=== PATIENT | male | born 1950 | race Caucasian/White ===

== ENCOUNTER 2024-01-10 09:49 | Inpatient (IN) | payer OTHER, SELFPAY ==
[2024-01-10] VITALS (18 sets, daily range): BP systolic 152–215; BP diastolic 72–107; PULSE 99; O2SAT 95; BMI 23.1; BMI 22.3
--- NOTE | 2024-01-10 03:42 | EDRN ---
Pt does not know his medication or doses of medication. No family members here to clarify.
--- NOTE | 2024-01-10 03:47 | ED.GENMED ---
History of Present Illness
<MONAE Duong - Last Filed: 01/18/24 03:37>
General
Chief Complaint: Weakness
Source: patient
Time Seen by Provider: 01/10/24 03:41
Travel History
Have you had any contact with someone who has COVID-19?: No
Do you have any symptoms of coronavirus? Fever > 100 degrees, chills, cough, shortness of breath, sore throat, loss of taste or smell, muscle aches, or headache?: No
History of Present Illness
History of Present Illness:
Pt is a 74 y/o male with a PMH of diabetes, CHF, HTN, hyperlipidemia, sarcoidosis, and heart transplant (01/28) presenting with generalized weakness x 2 days. Pt states the weakness gets worse throughout the day and is occasionally associated with
arthritic pain. He reports his eyes feeling heavy as the day progresses. Pt states he also has numbness and tingling in his feet bilaterally 'for a long time'. He reports his daily sugars are 150 in the a.m. prior to eating. Pt states he has fallen
several times in the last 2 days. He denies hitting his head, stating he is usually able to catch himself as he falls. He reports he lives at home and his son checks on him frequently. He also reports occasional dizziness and SOB, stating he sleeps
with 2-3 pillows at night to prevent SOB. Pt reports weight loss of 40 lbs in the last month and feeling hot throughout the day. Pt denies palpitations, night sweats, chest pain, swelling, changes in vision, new onset headaches, change in urinary or
bowel habits.
Past History
<MONAE Duong - Last Filed: 01/18/24 03:37>
Past History
ED Past Medical History: HTN, Hypercholesterolemia and Other (Cardiac transplant)
ED Past Surgical History: Other (Cardiac transplant)
Social History
Tobacco: Non-smoker
Alcohol: None
Drug: None
Review of Systems
<MONAE Duong - Last Filed: 01/18/24 03:37>
Review of Systems
Constitutional: Reports fever, weight loss (Reports 40 lb loss in past month), fatigue and other (reports feeling hot and sweaty throughout the day)
EENT: Reports no symptoms
Respiratory: Reports trouble breathing
Cardiac: Reports no symptoms
ABD/GI: Reports no symptoms
: Reports urgency
Musculoskeletal: Reports joint pain and muscle pain
Skin: Reports no symptoms
Neurological: Reports dizzy, weakness and numbness
Hematologic/Lymphatic: Reports no symptoms
Psychiatric: Reports no symptoms
Phy Exam
<MONAE Duong - Last Filed: 01/18/24 03:37>
General Physical Exam
General Presentation: well appearing
General age: appears stated age
General Skin: warm and dry
General Habitus: normal and elderly
General Mental: confused (Pt states he stopped taking his lisinopril 'awhile ago' but later states he still takes his lisinopril daily.)
General Hydration: appears well hydrated
Eye Exam
Eye Exam: EOMI
Cardiovascular Exam
Cardiovascular Exam: regular rate/rhythm, no edema, no gallop, no murmur and normal peripheral pulses
Pulmonary Exam
Pulmonary Exam: lungs clear, no respiratory distress, no rales, chest non tender, no crackles, no rhonchi, no wheezing and no cough
Gastrointestinal Exam
Gastrointestinal Exam: normal bowel sounds, non tender and soft
Sensory
Sensory Exam: dull and sharp
Cerebellar
Cerebellar Function: normal finger to nose (Able to touch nose but not able to follow command to outstretch arm before.)
Skin Exam
Skin Exam: normal color, warm/dry and no rash
Psychiatric Exam
Psychiatric Exam: normal mood/affect
Course
<Corazon Stern [facility] - Last Filed: 01/18/24 03:37>
Orders/Labs/Results
Orders:
Orders
01/10/24 03:45
Electrocardiogram (*1) Urgent
Reason for Study: Other
Other Reason for Exam: Possible Sepsis
Cardiac Monitoring- Treatment ONCE
EKG- Treatment ONCE
O2 Therapy [RESP] Urgent
Titrate/Wean O2 to maintain O2 sat greater than (%): 93
Special Instructions: TO MAINTAIN CONTINUOUS O2 SATS > OR = 93%
Pulse Ox/cont/shift [RESP] Urgent
Quantity: 1
Special Instructions: CONTINUOUS
01/10/24 03:47
Complete Blood Count/With Diff Urgent
Comprehensive Metabolic Panel Urgent
01/10/24 04:21
COVID-19 Antigen Urgent
Source: Nasal Swab
Urinalysis Reflex To Culture Urgent
Date Specimen was Collected: 01/10/24
Time Specimen was Collected: 04:19
Urine Microscopic Reflex Cult Urgent
Influenza A+B Rapid Molecular Urgent
MALACHI Source: Nasal Swab
Specimen Description:
01/10/24 Breakfast
Cholesterol Lowering
At Your Request: Full Participation
Cholesterol Lowering: Sodium, 2 Gram
01/10/24 07:30
0.9% Sodium Chloride 1000 ml [Nss] 1,000 ml IV 250 mls/hr
01/10/24 09:27
Admit/Transfer Patient As Directed
Co-Sign Provider:
Level of Care: Inpatient admission
Assign to:: Medical/Surgical
Physician / Group: dez/stephanie
Diagnosis: weight loss, falls, jacy
Reason for Hospitalization: weight loss, falls, jacy
Expected length of stay greater than two midnights?: Yes
ELOS- Estimated Length of Stay in days: 3
I certify the patient meets the requirements for IP care: Yes
01/10/24 09:34
Code Status As Directed
Resuscitation Status: Full Code
01/10/24 11:36
Insulin Aspart High Resistance [Novolog Flexpen-High Resistance] See Protocol SC AC
Oxycodone/Acetaminophen [Percocet 5/325] 1 tablet PO BIDPRN PRN
01/10/24 11:36
Echo 2D MMode Color/Doppler Routine
Reason for Study: ef
CT Chest/abd/pel Wo Iv Cont Routine
Comment:
Reason For Exam: jacy but 40 lb weight loss - eval for any masses
Activity As Directed
Activity Level: As Tolerated
Vital Signs As Directed
Frequency: Per unit guidelines
Ot Eval And Treat Routine
Pt Eval And Treat Routine
Activity Level: As Tolerated
DX Deep Vein Thrombosis Video Routine
01/10/24 16:00
Heparin 5,000 units SC Q8
01/10/24 20:00
Magnesium l-Lactate [Mag-Tab Sr] 84 mg PO BID
Tacrolimus [Prograf] 1 mg PO BID
01/10/24 22:00
Atorvastatin [Lipitor] 40 mg PO HS
01/11/24 05:39
Complete Blood Count/No Diff IN AM
Comprehensive Metabolic Panel IN AM
Magnesium IN AM
01/11/24 08:00
Aspirin Low Dose EC [Aspir Low (Enteric Coated)] 81 mg PO DAILY
Clopidogrel Bisulfate [Plavix] 75 mg PO DAILY
Multivitamin [Theragran] 1 tablet PO DAILY
Pantoprazole [Protonix] 40 mg PO DAILY
Prednisone [Deltasone] 5 mg PO DAILY
Tamsulosin [Flomax] 0.4 mg PO DAILY
Abnormal Lab Results
01/10/24 01/10/24
03:47 04:21
WBC 13.4 H 10^3/uL
(4.8-10.8)
Abs Immat Gran (auto) 0.1 H 10^3/uL
(0-0.05)
Absolute Neuts (auto) 9.9 H 10^3/uL
(1.4-6.5)
Absolute Monos (auto) 2.0 H 10^3/uL
(0.1-0.6)
Lymphocytes % 10.7 L %
(20.5-51.1)
Monocytes % 14.6 H %
(1.7-9.3)
Sodium 132 L mmol/L
(135-145)
Potassium 3.4 L mmol/L
(3.5-5.1)
BUN 38 H mg/dl
(9-20)
Creatinine 1.5 H mg/dL
(0.7-1.3)
Glucose 178 H mg/dl
(70-99)
Total Bilirubin 1.6 H mg/dl
(0.2-1.3)
Urine Ketones 1+ A
(Negative)
Ur Occult Blood Reflex 1+ A
(Negative)
Urine RBC 3-6 A /HPF
(0-2)
Urine Bacteria (Reflex) Few A
(Negative)
Urine Glucose Trace A
(Negative)
Urine Albumin (Reflex) 2+ A
(Neg - Trace)
01/10/24 03:47
01/10/24 03:47
Vital Signs
Initial and Last Documented VS:
Initial Vital Signs
Temp Pulse Resp BP Pulse Ox
100.9 F H 93 20 215/107 97
01/10/24 03:22 01/10/24 03:22 01/10/24 03:22 01/10/24 03:22 01/10/24 03:22
Last Documented Vital Signs
Temp Pulse Resp BP Pulse Ox
97.4 F 65 18 115/67 97
01/17/24 07:00 01/17/24 08:13 01/17/24 07:00 01/17/24 08:13 01/17/24 08:19
<Job Desai, DO - Last Filed: 01/10/24 07:24>
Orders/Labs/Results
Orders:
Orders
01/10/24 03:45
Electrocardiogram (*1) Urgent
Reason for Study: Other
Other Reason for Exam: Possible Sepsis
Cardiac Monitoring- Treatment ONCE
EKG- Treatment ONCE
O2 Therapy [RESP] Urgent
Titrate/Wean O2 to maintain O2 sat greater than (%): 93
Special Instructions: TO MAINTAIN CONTINUOUS O2 SATS > OR = 93%
Pulse Ox/cont/shift [RESP] Urgent
Quantity: 1
Special Instructions: CONTINUOUS
01/10/24 03:47
Complete Blood Count/With Diff Urgent
Comprehensive Metabolic Panel Urgent
01/10/24 04:21
COVID-19 Antigen Urgent
Source: Nasal Swab
Urinalysis Reflex To Culture Urgent
Date Specimen was Collected: 01/10/24
Time Specimen was Collected: 04:19
Urine Microscopic Reflex Cult Urgent
Influenza A+B Rapid Molecular Urgent
MALACHI Source: Nasal Swab
Specimen Description:
01/10/24 Breakfast
Cholesterol Lowering
At Your Request: Full Participation
Cholesterol Lowering: Sodium, 2 Gram
01/10/24 07:30
0.9% Sodium Chloride 1000 ml [Nss] 1,000 ml IV 250 mls/hr
01/10/24 09:27
Admit/Transfer Patient As Directed
Co-Sign Provider:
Level of Care: Inpatient admission
Assign to:: Medical/Surgical
Physician / Group: dez/stephanie
Diagnosis: weight loss, falls, jacy
Reason for Hospitalization: weight loss, falls, jacy
Expected length of stay greater than two midnights?: Yes
ELOS- Estimated Length of Stay in days: 3
I certify the patient meets the requirements for IP care: Yes
01/10/24 09:34
Code Status As Directed
Resuscitation Status: Full Code
01/10/24 11:36
Insulin Aspart High Resistance [Novolog Flexpen-High Resistance] See Protocol SC AC
Oxycodone/Acetaminophen [Percocet 5/325] 1 tablet PO BIDPRN PRN
01/10/24 11:36
Echo 2D MMode Color/Doppler Routine
Reason for Study: ef
CT Chest/abd/pel Wo Iv Cont Routine
Comment:
Reason For Exam: jacy but 40 lb weight loss - eval for any masses
Activity As Directed
Activity Level: As Tolerated
Vital Signs As Directed
Frequency: Per unit guidelines
Ot Eval And Treat Routine
Pt Eval And Treat Routine
Activity Level: As Tolerated
DX Deep Vein Thrombosis Video Routine
01/10/24 16:00
Heparin 5,000 units SC Q8
01/10/24 20:00
Magnesium l-Lactate [Mag-Tab Sr] 84 mg PO BID
Tacrolimus [Prograf] 1 mg PO BID
01/10/24 22:00
Atorvastatin [Lipitor] 40 mg PO HS
01/11/24 05:39
Complete Blood Count/No Diff IN AM
Comprehensive Metabolic Panel IN AM
Magnesium IN AM
01/11/24 08:00
Aspirin Low Dose EC [Aspir Low (Enteric Coated)] 81 mg PO DAILY
Clopidogrel Bisulfate [Plavix] 75 mg PO DAILY
Multivitamin [Theragran] 1 tablet PO DAILY
Pantoprazole [Protonix] 40 mg PO DAILY
Prednisone [Deltasone] 5 mg PO DAILY
Tamsulosin [Flomax] 0.4 mg PO DAILY
Abnormal Lab Results
01/10/24 01/10/24
03:47 04:21
WBC 13.4 H 10^3/uL
(4.8-10.8)
Abs Immat Gran (auto) 0.1 H 10^3/uL
(0-0.05)
Absolute Neuts (auto) 9.9 H 10^3/uL
(1.4-6.5)
Absolute Monos (auto) 2.0 H 10^3/uL
(0.1-0.6)
Lymphocytes % 10.7 L %
(20.5-51.1)
Monocytes % 14.6 H %
(1.7-9.3)
Sodium 132 L mmol/L
(135-145)
Potassium 3.4 L mmol/L
(3.5-5.1)
BUN 38 H mg/dl
(9-20)
Creatinine 1.5 H mg/dL
(0.7-1.3)
Glucose 178 H mg/dl
(70-99)
Total Bilirubin 1.6 H mg/dl
(0.2-1.3)
Urine Ketones 1+ A
(Negative)
Ur Occult Blood Reflex 1+ A
(Negative)
Urine RBC 3-6 A /HPF
(0-2)
Urine Bacteria (Reflex) Few A
(Negative)
Urine Glucose Trace A
(Negative)
Urine Albumin (Reflex) 2+ A
(Neg - Trace)
01/10/24 03:47
01/10/24 03:47
Vital Signs
Initial and Last Documented VS:
Initial Vital Signs
Temp Pulse Resp BP Pulse Ox
100.9 F H 93 20 215/107 97
01/10/24 03:22 01/10/24 03:22 01/10/24 03:22 01/10/24 03:22 01/10/24 03:22
Last Documented Vital Signs
Temp Pulse Resp BP Pulse Ox
97.4 F 65 18 115/67 97
01/17/24 07:00 01/17/24 08:13 01/17/24 07:00 01/17/24 08:13 01/17/24 08:19
<MONAE Duong - Last Filed: 01/18/24 03:37>
MDM/Problems Addressed
Differential Diagnosis Includes:
CHF exacerbation
Arthritis
Myasthenia gravis
Diabetes complication
HTN urgency
MDM/Problems Addressed:
Generalized weakness
Chronic conditions affecting care: DM, HTN, Cardiomyopathy and Cancer
<MONAE Duong - Last Filed: 01/18/24 03:37>
*Pulse Oximetry
Patient hypoxic: no
*EKG
Interpreted by ED Provider?: Yes
Comparison EKG: no changes
Rate: normal
Rhythm: sinus
Fielding: normal axis
Interval: long QT
QRS Pattern: normal QRS
Ischemia: non-specific ST changes
*Small Craft Operator Interpretation
Rate: normal
Interpretation: normal
Rhythm: sinus
*Critical Care Note
Total Time (30-74mins, 75-104mins- exclusive of procedures): Not Applicable
ED Attending Note
<MONAE Duong - Last Filed: 01/18/24 03:37>
-
Portions of this chart may have been created with voice recognition software.� Occasional wrong word or��sound alike� substitutions may have occurred due to the inherent limitations of voice recognition software.
<Job Desai DO - Last Filed: 01/10/24 07:24>
ED Attending Note
Patient seen and examined by attending physician: Yes
I performed the substantive portion of visit, reviewed & personally made and approve the management plan that is documented in note by myself or ANABELL.: Yes
ED Attending Note:
Pleasant 73-year-old male presents with generalized weakness for the last 2 days. Patient states that he has had frequent falls over this time. Patient reports that he wakes up feeling 'energized'. And the weakness progressively worsened
throughout each day. Patient lives alone and is concerned about falling. His son does check in on him throughout the day but does not live in the household. Patient does have a history of heart transplants. He had his first transplant in 2000
and a second transplant in 2001. Patient states that he has been losing weight over the last month stating that he lost 40 pounds during this time. Patient denies specific abdominal or chest wall pain. Patient does have arthritis and occasionally
this pain acts up with his arthritis. Patient was seen in conjunction with the PA student. I have reviewed and agree with the history and treatment plan presented. On my independent physical exam, patient is awake, alert, and oriented x3.
Moderate acute distress. Heart is regular rate and rhythm and sometimes tachycardic. Lungs are clear to auscultation bilaterally. Abdomen is soft nontender nondistended no rigidity or guarding present. Negative Beyer sign. Negative McBurney's
point tenderness. Moves all 4 extremities.
Discharge Plan
Departure
Patient Disposition: Admit
Date of Disposition: 01/10/24
Time of Disposition: 07:18
Admit to: Med/Surg
Admit to doctor: hospitalist
Presentation/result/management discussed w/ accepting MD/DO: Hospitalist
Condition: Fair
Discharge Problem:
fever, r/o sepsis, Generalized muscle weakness, Unintentional weight loss, Acute kidney injury
Interventions
Interventions:
*Risk Screen - Suicide Last Done: 01/10/24 03:22
*General Assessment Last Done: 01/10/24 03:22
*Neglect/Abuse Screening Last Done: 01/10/24 03:22
ED- Fall Risk Assessment Last Done: 01/10/24 03:22
*ED COVID-19 Vaccine History Last Done: 01/10/24 03:22
*Nursing Disposition Last Done: 01/10/24 14:16
ED- Cardiac Assessment Last Done: 01/10/24 03:34
ED- Neurological Assessment Last Done: 01/10/24 03:34
ED- Pulmonary Assessment Last Done: 01/10/24 03:34
Discharge Date and Time
Discharge Date/Time: 01/10/24 15:02
[2024-01-10 04:03] LABS: % Basophils 0.7 % (0-2); % Immature Granulocytes 0.4 % (0-0.5); % Lymphocytes 10.7 % (20.5-51.1); % Monocytes 14.6 % (1.7-9.3); % Neutrophils 73.6 % (42.2-75.2); Absolute Basophils 0.1 10^3/uL (0-0.2); Absolute Immature Granulocytes 0.1 10^3/uL (0-0.05); Absolute Lymphocytes 1.4 10^3/uL (1.2-3.4); Absolute Neutrophils 9.9 10^3/uL (1.4-6.5); Hematocrit 42.9 % (39.0-52.0); Hemoglobin 15.2 g/dL (13.0-18.0); Mean Corp Hgb Conc. 35.4 g/dL (33.0-37.0); Mean Corpuscular Hgb 30.5 pg (27.0-31.0); Mean Platelet Volume 10.1 fL (7.4-10.4); Nucleated Red Blood Cells % 0 % (-); Platelet Count 251 10^3/uL (130-400); Red Blood Cell Count 4.99 10^6/uL (4.70-6.10); Red Cell Dist. Width 13.6 % (11.5-14.5); White Blood Cell Count 13.4 10^3/uL (4.8-10.8)
[2024-01-10 04:17] LABS: ALT (SGPT) 18 U/L (0-50); AST (SGOT) 29 U/L (17-59); Alkaline Phosphatase 97 U/L (38-126); Blood Urea Nitrogen 38 mg/dl (9-20); Carbon Dioxide 29 mmol/L (22-30); Chloride 98 mmol/L (98-107); Estimated Creatinine Clearance 42 ml/min; Glucose 178 mg/dl (70-99); Potassium 3.4 mmol/L (3.5-5.1); Sodium 132 mmol/L (135-145); Total Bilirubin 1.6 mg/dl (0.2-1.3); Total Protein 6.6 g/dl (6.3-8.2); eGFR 48.85
[2024-01-10 05:03] LABS: Urine Albumin 2+ (Neg - Trace); Urine Bilirubin Negative (Negative); Urine Character Clear (Clear); Urine Color Yellow; Urine Glucose Trace (Negative); Urine Ketone 1+ (Negative); Urine Leukocyte Negative (Negative); Urine Nitrite Negative (Negative); Urine Occult Blood 1+ (Negative); Urine Specific Gravity 1.015 (<1.030); Urine Urobilinogen 1+ (Neg - 1+)
[2024-01-10 05:24] LABS: COVID-19 Antigen Negative (Negative)
[2024-01-10 06:16] LABS: Urine Amorphous Seen; Urine Bacteria Few (Negative); Urine Squamous Cell 21-25 /LPF (Few)
[2024-01-10] MEDS: NSS 1000 IV ×2 (07:32→11:43)
[2024-01-10] MEDS: NORVASC 10 MG PO (12:02)
[2024-01-10] MEDS: APRESOLINE 10 MG IV (12:03)
[2024-01-10 12:52] LABS: Glucose - Point of Care 145 mg/dl (70-99)
[2024-01-10] MEDS: NOVOLOG FLEXPEN-HIGH RESISTANCE SC ×2 (13:17→17:35)
--- NOTE | 2024-01-10 13:55 | PTOTSP ---
Physician: Please order OT for Evaluation and Treatment of ADLs for safe return to prior functional status.
--- NOTE | 2024-01-10 14:56 | HPS.HSE ---
Family Physician
-
Family Physician: PHYSICIAN PRIVATE
Chief Complaint
-
weakness, worsening lethargy
History of Present Illness
74 y/o male with a PMH of diabetes, CHF, HTN, hyperlipidemia, sarcoidosis, and heart transplant (2019) presenting with generalized weakness x 2 days. Lethargy has been progressing, especially later in prema day. Further, eyes feel heavy later in the
day; Moreso, complains of numbness and tingling in the feet b/l that has been chronic. Acknowledges feeling weaker and falling many times over the last 2 weeks. 40lb weight loss in 1 month, unintentional. Otherwise denies fever, chills, night
sweats.
Medical History
Past Medical History
Past Medical History: Reports HTN, Hypercholesterolemia and IDDM
Additional Past Medical History:
HTN, Hypercholesterolemia and Other (Cardiac transplant)
Past Surgical History: Reports Cardiac (Heart Transplant 2019)
Social History
Tobacco: Non-smoker
Alcohol: None
Drug: None
Family History
Family History: Not pertinent
Allergies / Home Medications
Allergies reflects when Allergies were last updated in [employer].
Home Medications with original date entered in [employer]
Allergy/Medication List:
Allergies
Allergy/AdvReac Type Severity Reaction Status Date / Time
doxycycline Allergy NAUSEA/VOMI Verified 01/10/24 03:22
TING
Home Medications
atorvastatin 40 mg tablet 40 mg PO HS High cholesterol 01/04/10
tacrolimus 1 mg capsule, immediate-release 1 mg PO BID Transplant 01/04/10
aspirin 81 mg tablet,delayed release 81 mg PO DAILY Heart disease/condition 03/03/22
magnesium oxide 400 mg PO BID Supplement 03/03/22
prednisone 5 mg tablet 5 mg PO DAILY inflammation 03/03/22
tamsulosin 0.4 mg capsule 0.4 mg PO DAILY Urinary issue 03/03/22
clopidogrel 75 mg tablet 75 mg PO DAILY 01/10/24
insulin aspart U-100 100 unit/mL (3 mL) subcutaneous pen (Novolog FlexPen U-100 Insulin aspart) 0 sliding scale dose SC DIRECTED 01/10/24
lansoprazole 30 mg capsule,delayed release 30 mg PO DAILY 01/10/24
lisinopril 20 mg tablet 20 mg PO DAILY 01/10/24
uhuuwlxiqryv-eowugosu-mjwece tablet (Multivitamin 50 Plus tablet) 1 tab PO DAILY 01/10/24
oxycodone-acetaminophen 5 mg-325 mg tablet 1 tab PO BIDPRN PRN severe pain 01/10/24
Review of Systems
-
History Source: Patient
A 12 point ROS was completed and negative except as noted: Yes
Physical Exam
Vital Signs
Vital Signs
Temp Pulse Resp BP Pulse Ox
99.2 F 100 22 152/77 97
01/10/24 06:51 01/10/24 14:15 01/10/24 14:15 01/10/24 14:00 01/10/24 14:16
Physical Exam
General: No Apparent Distress, Comfortable and Appears Chronically Ill
HEENT: NormoCephalic
Respiratory: Clear
Cardiac: S1/S2 and Regular Rhythm
GI: Soft and Non Tender
Musculoskeletal: No Clubbing
Skin: Warm
Neuro: Awake, Alert, Oriented and AO x 3
Hematologic/Lymphatic: No Lymphadenopathy
Psych: Calm
Laboratory Results
-
01/10/24 03:47
01/10/24 03:47
Laboratory Results
Total Bilirubin 1.6 mg/dl (0.2-1.3) H 01/10/24 03:47
AST 29 U/L (17-59) 01/10/24 03:47
ALT 18 U/L (0-50) 01/10/24 03:47
Alkaline Phosphatase 97 U/L (38-126) 01/10/24 03:47
Data Reviewed
-
Lab Data: Labs Reviewed by me
Impression/Plan
-
IMPRESSION:
74 y/o male with a PMH of diabetes, CHF, HTN, hyperlipidemia, sarcoidosis, and heart transplant (2019) presenting with generalized weakness x 2 days.
PLAN:
#Weakness
-states 40lb weight loss although no evidence of much change since 2 eyars ago
-Concern for malignancy
� Unclear source,
� Follow-up CT chest, abdomen, pelvis without IV contrast due to CATIE
� PT/OT
-FOBT
#Leukocytosis
� Most likely secondary to acute stress
� Continue to monitor for evidence of infection, white count, fever curve
#Hypokalemia
Monitor replete
#CATEI
� Possibly secondary to decreased p.o. intake, dehydration versus sepsis
� Continue IV fluids
� Monitor serum creatinine
#Hyponatremia
� Most likely secondary to hypovolemia
� Trend with resuscitation
#DM
-cont AISS
#Hx heart transplant
cont home immunosuppressants
#HTN
hold lisinopril due to catie
#HLD
cont home atorvastatin
#sarcoidosis
cont home prednisone
dvt ppx HSQ
DNR as per patient
[2024-01-10] MEDS: LR 1000 IV (15:43)
[2024-01-10] MEDS: HEPARIN 5000 UNITS SC ×2 (15:44→23:18)
[2024-01-10] MEDS: KCL 270 MEQ IV (15:44)
[2024-01-10] MEDS: NSS IV (15:44)
--- NOTE | 2024-01-10 16:06 | PTCARENOTE ---
pt presents from ED via stretcher. pt is AAO*3, Vss, room air. c/o R shoulder pain 06/08. aware. IVFs started in ED. pt is oriented to the room. call summers within the reach. will continue plan of care.
[2024-01-10 17:35] LABS: Glucose - Point of Care 142 mg/dl (70-99)
[2024-01-10] MEDS: PERCOCET 5/325 1 TABLET PO (17:37)
[2024-01-10] MEDS: PROGRAF 1 MG PO (20:33)
[2024-01-10] MEDS: MAG-TAB SR 84 MG PO (20:33)
[2024-01-10] MEDS: LIPITOR 40 MG PO (20:34)
[2024-01-10 21:12] LABS: Glucose - Point of Care 217 mg/dl (70-99)
[2024-01-11] MEDS: LR 1000 IV (04:23)
[2024-01-11 06:00] VITALS: BMI 22.5
[2024-01-11 06:07] LABS: Hematocrit 38.2 % (39.0-52.0); Hemoglobin 13.6 g/dL (13.0-18.0); Mean Corp Hgb Conc. 35.6 g/dL (33.0-37.0); Mean Corpuscular Hgb 30.7 pg (27.0-31.0); Mean Corpuscular Volume 86.2 fL (80.0-94.0); Mean Platelet Volume 9.9 fL (7.4-10.4); Platelet Count 227 10^3/uL (130-400); Red Blood Cell Count 4.43 10^6/uL (4.70-6.10); Red Cell Dist. Width 13.7 % (11.5-14.5); White Blood Cell Count 10.3 10^3/uL (4.8-10.8)
[2024-01-11 06:29] LABS: ALT (SGPT) 14 U/L (0-50); AST (SGOT) 21 U/L (17-59); Alkaline Phosphatase 83 U/L (38-126); Blood Urea Nitrogen 29 mg/dl (9-20); Calcium 8.6 mg/dl (8.4-10.2); Carbon Dioxide 25 mmol/L (22-30); Chloride 100 mmol/L (98-107); Estimated Creatinine Clearance 64 ml/min; Glucose 151 mg/dl (70-99); Magnesium 1.6 mg/dl (1.6-2.3); Potassium 3.7 mmol/L (3.5-5.1); Sodium 132 mmol/L (135-145); Total Bilirubin 2.2 mg/dl (0.2-1.3); Total Protein 5.6 g/dl (6.3-8.2); eGFR > 60.00
[2024-01-11 07:27] LABS: Glucose - Point of Care 145 mg/dl (70-99)
[2024-01-11 07:42] VITALS: BP 159/86
[2024-01-11] MEDS: NORVASC 10 MG PO (08:59)
[2024-01-11] MEDS: THERAGRAN 1 TABLET PO (08:59)
[2024-01-11] MEDS: PLAVIX 75 MG PO (08:59)
[2024-01-11] MEDS: MAG-TAB SR 84 MG PO ×2 (08:59→20:41)
[2024-01-11] MEDS: HEPARIN 5000 UNITS SC ×3 (08:59→23:42)
[2024-01-11] MEDS: ASPIR LOW (ENTERIC COATED) 81 MG PO (08:59)
[2024-01-11] MEDS: DELTASONE 5 MG PO (09:00)
[2024-01-11] MEDS: PROGRAF 1 MG PO ×2 (09:00→20:41)
[2024-01-11] MEDS: NOVOLOG FLEXPEN-HIGH RESISTANCE 1 UNITS SC (09:01)
[2024-01-11] MEDS: PROTONIX 40 MG PO (09:01)
[2024-01-11] MEDS: FLOMAX 0.400000000000000022 MG PO (09:01)
[2024-01-11 13:06] VITALS: BP 137/71; PULSE 86; O2SAT 91
[2024-01-11 13:11] VITALS: BP 137/71; PULSE 86; O2SAT 91
[2024-01-11 13:37] LABS: Glucose - Point of Care 320 mg/dl (70-99)
[2024-01-11] MEDS: NOVOLOG FLEXPEN-HIGH RESISTANCE 10 UNITS SC (14:07)
--- NOTE | 2024-01-11 14:36 | W.PN.HOSP.TC ---
Today's Communication/Plan
-
monitor scr
dc ready, pending PT eval; CM aware
Assessment / Plan
Assessment / Plan
Physical Exam
General: No Apparent Distress, Comfortable and Appears Chronically Ill
HEENT: NormoCephalic
Respiratory: Clear
Cardiac: S1/S2 and Regular Rhythm
GI: Soft and Non Tender
Musculoskeletal: No Clubbing
Skin: Warm
Neuro: Awake, Alert, Oriented and AO x 3
Hematologic/Lymphatic: No Lymphadenopathy
Psych: Calm
74 y/o male with a PMH of diabetes, CHF, HTN, hyperlipidemia, sarcoidosis, and heart transplant (2019) presenting with generalized weakness x 2 days.
PLAN:
#Weakness
-states 40lb weight loss although no evidence of much change since 2 years ago as per our weights
-Concern for malignancy
� Unclear source
� Follow-up CT chest, abdomen, pelvis without IV contrast due to CATIE with no clear evidence of malignancy
� PT/OT
-FOBT
-needs GI and primary screening performed outpatient
-no urinary symptoms
#Right nondisplaced fracture through the surgical neck of the right proximal humerus
-Conservative management
- Nonweightbearing
� Follow-up Dr. Durga Ruelas, orthopedics outpatient
#Leukocytosis
� Most likely secondary to acute stress
� Continue to monitor for evidence of infection, white count, fever curve
-trending down on its own
#Hypokalemia
Monitor replete
#CATIE
� Possibly secondary to decreased p.o. intake, dehydration versus sepsis
� Continue IV fluids
� Monitor serum creatinine
-resolving
#Hyponatremia
� Most likely secondary to hypovolemia
� Trend with resuscitation
#DM
-cont AISS
#Hx heart transplant
cont home immunosuppressants
#HTN
hold lisinopril due to ctaie
#HLD
cont home atorvastatin
#sarcoidosis
cont home prednisone
dvt ppx HSQ
DNR as per patient
Anticipated Discharge: Within 24 hours
Subjective/Interval History
-
Date of Service: January 11, 2024
no acute vents; ct a/p without acute events
Objective Data
-
Labs:
Laboratory Results
01/11/24
05:39
WBC 10.3
Hgb 13.6
Hct 38.2 L
Plt Count 227
Sodium 132 L
Potassium 3.7
Chloride 100
Carbon Dioxide 25
BUN 29 H
Creatinine 1.0
Glucose 151 H
Calcium 8.6
Total Bilirubin 2.2 H
AST 21
ALT 14
Alkaline Phosphatase 83
Vital Signs:
Vital Signs
Temp Pulse Resp BP Pulse Ox
100.2 F 85 22 159/86 95
01/11/24 07:42 01/11/24 07:42 01/11/24 07:42 01/11/24 07:42 01/11/24 07:42
I&O
01/10/24 01/11/24 01/12/24
06:59 06:59 06:59
Intake Total 355 / 355
Output Total 390 / 390
Balance -35 / -35
Review of Systems
-
History Source: Patient
All other systems: Not reviewed unless documented
Data Reviewed
-
CT Scan: Image personally visualized and interpreted and Report Reviewed by me
Labs: Labs Reviewed by me
[2024-01-11 15:14] VITALS: BP 146/83
[2024-01-11 15:46] LABS: Direct Bilirubin 0.4 mg/dl (0.0-0.4)
[2024-01-11] MEDS: NOVOLOG FLEXPEN-HIGH RESISTANCE 2 UNITS SC (17:23)
[2024-01-11 17:24] LABS: Glucose - Point of Care 158 mg/dl (70-99)
[2024-01-11 17:34] LABS: Urine Albumin 2+ (Neg - Trace); Urine Bilirubin 1+ (Negative); Urine Character Clear (Clear); Urine Color Yellow; Urine Glucose 3+ (Negative); Urine Ketone Negative (Negative); Urine Leukocyte Negative (Negative); Urine Nitrite Negative (Negative); Urine Occult Blood Negative (Negative); Urine Specific Gravity 1.015 (<1.030); Urine Urobilinogen 3+ (Neg - 1+)
[2024-01-11 17:43] LABS: Urine Bacteria Few (Negative); Urine White Cell 0-2 /HPF (0-5)
[2024-01-11 17:44] LABS: Urine Red Blood Cell 0-2 /HPF (0-2)
[2024-01-11] MEDS: PERCOCET 5/325 1 TABLET PO (20:40)
[2024-01-11] MEDS: LIPITOR 40 MG PO (20:41)
[2024-01-11 21:19] LABS: Glucose - Point of Care 250 mg/dl (70-99)
[2024-01-11 23:33] VITALS: BP 140/68
--- NOTE | 2024-01-12 03:14 | PTCARENOTE ---
Patient attempting to get out of bed to urinate, RN able to get to patient and get him in bed prior to him falling. Bed alarm applied . Patient forgetful, he did not remember how weak he is. Call summers in reach.
[2024-01-12 05:52] LABS: Hematocrit 35.2 % (39.0-52.0); Hemoglobin 12.4 g/dL (13.0-18.0); Mean Corp Hgb Conc. 35.2 g/dL (33.0-37.0); Mean Corpuscular Hgb 30.3 pg (27.0-31.0); Mean Corpuscular Volume 86.1 fL (80.0-94.0); Mean Platelet Volume 10.2 fL (7.4-10.4); Platelet Count 224 10^3/uL (130-400); Red Blood Cell Count 4.09 10^6/uL (4.70-6.10); Red Cell Dist. Width 13.4 % (11.5-14.5); White Blood Cell Count 7.9 10^3/uL (4.8-10.8)
[2024-01-12 06:00] VITALS: BMI 22.8
[2024-01-12 06:14] LABS: ALT (SGPT) 19 U/L (0-50); AST (SGOT) 24 U/L (17-59); Albumin 2.8 g/dl (3.5-5.0); Alkaline Phosphatase 92 U/L (38-126); Blood Urea Nitrogen 25 mg/dl (9-20); Calcium 8.4 mg/dl (8.4-10.2); Carbon Dioxide 25 mmol/L (22-30); Chloride 101 mmol/L (98-107); Estimated Creatinine Clearance 65 ml/min; Glucose 146 mg/dl (70-99); Potassium 3.3 mmol/L (3.5-5.1); Sodium 134 mmol/L (135-145); Total Bilirubin 1.4 mg/dl (0.2-1.3); Total Protein 5.3 g/dl (6.3-8.2); eGFR > 60.00
[2024-01-12 07:37] VITALS: BP 144/72
[2024-01-12 07:38] LABS: Glucose - Point of Care 151 mg/dl (70-99)
[2024-01-12] MEDS: DELTASONE 5 MG PO (09:24)
[2024-01-12] MEDS: FLOMAX 0.400000000000000022 MG PO (09:24)
[2024-01-12] MEDS: ASPIR LOW (ENTERIC COATED) 81 MG PO (09:24)
[2024-01-12] MEDS: MAG-TAB SR 84 MG PO ×2 (09:24→20:00)
[2024-01-12] MEDS: NORVASC 10 MG PO (09:27)
[2024-01-12] MEDS: THERAGRAN 1 TABLET PO (09:27)
[2024-01-12] MEDS: PROTONIX 40 MG PO (09:27)
[2024-01-12] MEDS: HEPARIN 5000 UNITS SC ×3 (09:28→23:29)
[2024-01-12] MEDS: NOVOLOG FLEXPEN-HIGH RESISTANCE 2 UNITS SC (09:29)
[2024-01-12] MEDS: PROGRAF 1 MG PO ×2 (09:29→20:00)
[2024-01-12] MEDS: PLAVIX 75 MG PO (09:30)
[2024-01-12] MEDS: KCL ELIXIR 40 MEQ PO (09:32)
[2024-01-12 10:25] VITALS: BMI 22.8
[2024-01-12 12:04] LABS: Glucose - Point of Care 238 mg/dl (70-99)
[2024-01-12] MEDS: NOVOLOG FLEXPEN-HIGH RESISTANCE 4 UNITS SC ×2 (12:20→17:14)
[2024-01-12 12:37] VITALS: BP 131/74; PULSE 75; O2SAT 96
--- NOTE | 2024-01-12 14:28 | W.PN.HOSP.TC ---
Today's Communication/Plan
-
DC ready, placement pending as per CM
Assessment / Plan
Assessment / Plan
Physical Exam
General: No Apparent Distress, Comfortable and Appears Chronically Ill
HEENT: NormoCephalic
Respiratory: Clear
Cardiac: S1/S2 and Regular Rhythm
GI: Soft and Non Tender
Musculoskeletal: No Clubbing
Skin: Warm
Neuro: Awake, Alert, Oriented and AO x 3
Hematologic/Lymphatic: No Lymphadenopathy
Psych: Calm
74 y/o male with a PMH of diabetes, CHF, HTN, hyperlipidemia, sarcoidosis, and heart transplant (2019) presenting with generalized weakness x 2 days.
PLAN:
#Weakness
-states 40lb weight loss although no evidence of much change since 2 years ago as per our weights
� most likely decondition v underlying malignancy although will hold on ct cont due to acute CATIE
� Follow-up CT chest, abdomen, pelvis without IV contrast due to CATIE with no clear evidence of malignancy
� PT/OT
-needs GI and primary screening performed outpatient
-no urinary symptoms
-F/u GI for scope outpatient
#Right nondisplaced fracture through the surgical neck of the right proximal humerus
-Conservative management
- Nonweightbearing
� Follow-up Dr. Durga Ruelas, orthopedics outpatient
#Leukocytosis
� Most likely secondary to acute stress
� Continue to monitor for evidence of infection, white count, fever curve
-trending down on its own
#Hypokalemia
Monitor replete
#CATIE
� Possibly secondary to decreased p.o. intake, dehydration versus sepsis
� Continue IV fluids
� Monitor serum creatinine
-resolving
#Hyponatremia
� Most likely secondary to hypovolemia
� Trend with resuscitation
#DM
-cont AISS
#Hx heart transplant
cont home immunosuppressants
#HTN
hold lisinopril due to catie
#HLD
cont home atorvastatin
#sarcoidosis
cont home prednisone
dvt ppx HSQ
DNR as per patient
DC ready, CM Aware - pending placement
Anticipated Discharge: Within 24 hours
Subjective/Interval History
-
Date of Service: January 12, 2024
no acute events
Objective Data
-
Labs:
Laboratory Results
01/12/24
04:48
WBC 7.9
Hgb 12.4 L
Hct 35.2 L
Plt Count 224
Sodium 134 L
Potassium 3.3 L
Chloride 101
Carbon Dioxide 25
BUN 25 H
Creatinine 1.0
Glucose 146 H
Calcium 8.4
Total Bilirubin 1.4 H
AST 24
ALT 19
Alkaline Phosphatase 92
Vital Signs:
Vital Signs
Temp Pulse Resp BP Pulse Ox
98 F 79 16 144/72 95
01/12/24 07:37 01/12/24 07:37 01/12/24 07:37 01/12/24 07:37 01/12/24 10:39
I&O
01/11/24 01/12/24 01/13/24
06:59 06:59 06:59
Intake Total 355 / 355 300 / 300
Output Total 390 / 390 650 / 650
Balance -35 / -35 -350 / -350
Review of Systems
-
History Source: Patient
All other systems: Not reviewed unless documented
Data Reviewed
-
CT Scan: Image personally visualized and interpreted and Report Reviewed by me
Labs: Labs Reviewed by me
[2024-01-12 15:53] VITALS: BP 158/85
--- NOTE | 2024-01-12 15:57 | PTCARENOTE ---
Pt awake and alert ,oriented to self/place birthdate; confused to year. LEIVA; has decreased ROM RUEd/t shoulder fx, pt keeping RUE sling in place. circ/neuro check to RUE WNL. OOB to chair with assist x2; belem well; tires easily. VSS. On room
air- pulse ox 96%, no SOB noted. Abd large, soft, belem PO well. Voids in urinal/incont at times. resting in bed at present, no c/o. Will continue to monitor.
[2024-01-12 16:46] LABS: Glucose - Point of Care 201 mg/dl (70-99)
--- NOTE | 2024-01-12 17:21 | CM ---
met [facility] patient at [facility].son lives with patient in house with 1 gladys,his bed and bath is on the first level,he amb with cane/walker,he is diabetic on insulin-he tests his bs daily.his pcp is marybeth franklin,his pharmacy is [facility] in
[place]..patient with a past hx of cardiac transplant is adm with weakness,non displaced fx of the r arm,falls,jacy.he was seen by therapy who recommended short term rehab.
referral sent to [facility].per attending,pt is ready for rehab.he will need an auth from insurance.
[2024-01-12] MEDS: LIPITOR 40 MG PO (20:00)
[2024-01-12 21:12] LABS: Glucose - Point of Care 193 mg/dl (70-99)
[2024-01-12 23:45] VITALS: BP 133/73
[2024-01-13 06:00] VITALS: BMI 23.1
[2024-01-13 07:38] LABS: Glucose - Point of Care 160 mg/dl (70-99)
[2024-01-13 07:41] VITALS: BP 131/76
[2024-01-13] MEDS: NOVOLOG FLEXPEN-HIGH RESISTANCE SC (08:50)
[2024-01-13] MEDS: MAG-TAB SR 84 MG PO ×2 (08:53→19:27)
[2024-01-13] MEDS: PLAVIX 75 MG PO (08:53)
[2024-01-13] MEDS: DELTASONE 5 MG PO (08:53)
[2024-01-13] MEDS: FLOMAX 0.400000000000000022 MG PO (08:53)
[2024-01-13] MEDS: PROGRAF 1 MG PO ×2 (08:53→19:27)
[2024-01-13] MEDS: ASPIR LOW (ENTERIC COATED) 81 MG PO (08:53)
[2024-01-13] MEDS: HEPARIN 5000 UNITS SC ×2 (08:53→17:47)
[2024-01-13] MEDS: PROTONIX 40 MG PO (08:53)
[2024-01-13] MEDS: THERAGRAN 1 TABLET PO (08:53)
[2024-01-13] MEDS: NORVASC 10 MG PO (08:55)
[2024-01-13 10:32] LABS: Hematocrit 34.5 % (39.0-52.0); Hemoglobin 12.2 g/dL (13.0-18.0); Mean Corp Hgb Conc. 35.4 g/dL (33.0-37.0); Mean Corpuscular Hgb 30.3 pg (27.0-31.0); Mean Corpuscular Volume 85.8 fL (80.0-94.0); Mean Platelet Volume 9.7 fL (7.4-10.4); Platelet Count 241 10^3/uL (130-400); Red Blood Cell Count 4.02 10^6/uL (4.70-6.10); Red Cell Dist. Width 13.2 % (11.5-14.5); White Blood Cell Count 6.3 10^3/uL (4.8-10.8)
[2024-01-13 11:00] LABS: ALT (SGPT) 26 U/L (0-50); AST (SGOT) 27 U/L (17-59); Albumin 2.8 g/dl (3.5-5.0); Alkaline Phosphatase 97 U/L (38-126); Blood Urea Nitrogen 27 mg/dl (9-20); Calcium 8.3 mg/dl (8.4-10.2); Carbon Dioxide 25 mmol/L (22-30); Chloride 105 mmol/L (98-107); Estimated Creatinine Clearance 66 ml/min; Glucose 174 mg/dl (70-99); Potassium 3.6 mmol/L (3.5-5.1); Sodium 133 mmol/L (135-145); Total Protein 5.4 g/dl (6.3-8.2); eGFR > 60.00
[2024-01-13 12:13] LABS: Glucose - Point of Care 240 mg/dl (70-99)
[2024-01-13] MEDS: NOVOLOG FLEXPEN-HIGH RESISTANCE 4 UNITS SC ×2 (12:51→17:48)
[2024-01-13 12:58] LABS: Urine Albumin 1+ (Neg - Trace); Urine Bilirubin Negative (Negative); Urine Character Clear (Clear); Urine Color Yellow; Urine Glucose Negative (Negative); Urine Ketone Negative (Negative); Urine Leukocyte Negative (Negative); Urine Nitrite Negative (Negative); Urine Occult Blood Negative (Negative); Urine Urobilinogen 2+ (Neg - 1+)
[2024-01-13 13:10] LABS: Urine Red Blood Cell 0-2 /HPF (0-2); Urine White Cell 0-2 /HPF (0-5)
--- NOTE | 2024-01-13 13:15 | W.PN.HOSP.TC ---
Today's Communication/Plan
-
blood cultures
monitor fever curve
Assessment / Plan
Assessment / Plan
Physical Exam
General: No Apparent Distress, Comfortable and Appears Chronically Ill
HEENT: NormoCephalic
Respiratory: Clear
Cardiac: S1/S2 and Regular Rhythm
GI: Soft and Non Tender
Musculoskeletal: No Clubbing
Skin: Warm
Neuro: Awake, Alert, Oriented and AO x 3
Hematologic/Lymphatic: No Lymphadenopathy
Psych: Calm
74 y/o male with a PMH of diabetes, CHF, HTN, hyperlipidemia, sarcoidosis, and heart transplant (2019) presenting with generalized weakness x 2 days.
PLAN:
#Weakness
-states 40lb weight loss although no evidence of much change since 2 years ago as per our weights
� most likely decondition v underlying malignancy although will hold on ct cont due to acute CATIE
� Follow-up CT chest, abdomen, pelvis without IV contrast due to CATIE with no clear evidence of malignancy
� PT/OT
-needs GI and primary screening performed outpatient
-no urinary symptoms
-F/u GI for scope outpatient
#Right nondisplaced fracture through the surgical neck of the right proximal humerus
-Conservative management
- Nonweightbearing
� Follow-up Dr. Durga Ruelas, orthopedics outpatient
#Repeated febrile episode
-most likely viral
-sars-cov-2 and flu neg
-UA negative, blood cultures neg
-repeat blood cultures, UA
-DVT studies negative
-ctm fever curve; if unresolving - consult ID in transplant pt
#Leukocytosis
� Most likely secondary to acute stress
� Continue to monitor for evidence of infection, white count, fever curve
-trending down on its own
#Hypokalemia
Monitor replete
#CATIE
� Possibly secondary to decreased p.o. intake, dehydration versus sepsis
� Continue IV fluids
� Monitor serum creatinine
-resolving
#Hyponatremia
� Most likely secondary to hypovolemia
� Trend with resuscitation
#DM
-cont AISS
#Hx heart transplant
cont home immunosuppressants
#HTN
hold lisinopril due to catie
#HLD
cont home atorvastatin
#sarcoidosis
cont home prednisone
dvt ppx HSQ
DNR as per patient
DC ready, CM Aware - pending placement
Anticipated Discharge: > 48 hours
Subjective/Interval History
-
Date of Service: January 13, 2024
spike temp of 100.8 yesterday, otherwise no acute findings
Objective Data
-
Labs:
Laboratory Results
01/13/24
10:14
WBC 6.3
Hgb 12.2 L
Hct 34.5 L
Plt Count 241
Sodium 133 L
Potassium 3.6
Chloride 105
Carbon Dioxide 25
BUN 27 H
Creatinine 1.0
Glucose 174 H
Calcium 8.3 L
Total Bilirubin 1.0
AST 27
ALT 26
Alkaline Phosphatase 97
Vital Signs:
Vital Signs
Temp Pulse Resp BP Pulse Ox
97.9 F 85 16 131/76 94
01/13/24 07:41 01/13/24 08:55 01/13/24 07:41 01/13/24 08:55 01/13/24 08:50
I&O
01/12/24 01/13/24 01/14/24
06:59 06:59 06:59
Intake Total 300 / 300 960 / 960
Output Total 650 / 650 2288 / 2288
Balance -350 / -350 -1328 / -1328
Review of Systems
-
History Source: Patient
All other systems: Not reviewed unless documented
Data Reviewed
-
CT Scan: Image personally visualized and interpreted and Report Reviewed by me
Ultrasound: Image personally visualized and interpreted
Labs: Labs Reviewed by me
[2024-01-13 13:22] VITALS: BP 126/70; BP 136/78; PULSE 72
[2024-01-13 15:45] VITALS: BP 127/74
--- NOTE | 2024-01-13 16:46 | PTCARENOTE ---
Assumed care of patient at 16:00 from previous RN. No changes noted to previous assessment. VSS. Pox: 95% RA. Plan of care ongoing. Call [facility] within reach.
[2024-01-13 17:05] LABS: Glucose - Point of Care 241 mg/dl (70-99)
[2024-01-13 21:13] LABS: Glucose - Point of Care 185 mg/dl (70-99)
[2024-01-13] MEDS: LIPITOR 40 MG PO (22:35)
[2024-01-13 23:41] VITALS: BP 165/84
[2024-01-14] MEDS: HEPARIN 5000 UNITS SC ×4 (00:07→23:14)
[2024-01-14 00:11] VITALS: BP 150/73
[2024-01-14 06:00] VITALS: BMI 21.7
[2024-01-14 07:12] LABS: Glucose - Point of Care 132 mg/dl (70-99)
[2024-01-14 07:55] VITALS: BP 158/88
[2024-01-14 08:06] LABS: Hematocrit 38.5 % (39.0-52.0); Hemoglobin 12.9 g/dL (13.0-18.0); Mean Corp Hgb Conc. 33.5 g/dL (33.0-37.0); Mean Corpuscular Hgb 29.7 pg (27.0-31.0); Mean Corpuscular Volume 88.5 fL (80.0-94.0); Mean Platelet Volume 10.3 fL (7.4-10.4); Platelet Count 304 10^3/uL (130-400); Red Blood Cell Count 4.35 10^6/uL (4.70-6.10); Red Cell Dist. Width 13.2 % (11.5-14.5); White Blood Cell Count 5.4 10^3/uL (4.8-10.8)
[2024-01-14 08:59] LABS: ALT (SGPT) 23 U/L (0-50); AST (SGOT) 24 U/L (17-59); Albumin 2.9 g/dl (3.5-5.0); Alkaline Phosphatase 98 U/L (38-126); Blood Urea Nitrogen 25 mg/dl (9-20); Calcium 8.5 mg/dl (8.4-10.2); Carbon Dioxide 26 mmol/L (22-30); Chloride 103 mmol/L (98-107); Estimated Creatinine Clearance 69 ml/min; Glucose 129 mg/dl (70-99); Potassium 3.6 mmol/L (3.5-5.1); Sodium 137 mmol/L (135-145); Total Bilirubin 0.8 mg/dl (0.2-1.3); Total Protein 5.5 g/dl (6.3-8.2); eGFR > 60.00
[2024-01-14] MEDS: FLOMAX 0.400000000000000022 MG PO (09:50)
[2024-01-14] MEDS: ASPIR LOW (ENTERIC COATED) 81 MG PO (09:50)
[2024-01-14] MEDS: DELTASONE 5 MG PO (09:50)
[2024-01-14] MEDS: NOVOLOG FLEXPEN-HIGH RESISTANCE 1 UNITS SC (09:50)
[2024-01-14] MEDS: MAG-TAB SR 84 MG PO ×2 (09:51→21:17)
[2024-01-14] MEDS: NORVASC 10 MG PO (09:51)
[2024-01-14] MEDS: PROTONIX 40 MG PO (09:52)
[2024-01-14] MEDS: THERAGRAN 1 TABLET PO (09:52)
[2024-01-14] MEDS: PROGRAF 1 MG PO ×2 (09:52→21:17)
[2024-01-14] MEDS: PLAVIX 75 MG PO (09:52)
[2024-01-14 11:46] LABS: Glucose - Point of Care 216 mg/dl (70-99)
[2024-01-14] MEDS: NOVOLOG FLEXPEN-HIGH RESISTANCE 4 UNITS SC (12:44)
--- NOTE | 2024-01-14 13:59 | W.PN.HOSP.TC ---
Today's Communication/Plan
-
f/ucultures
monitor fever curve
Assessment / Plan
Assessment / Plan
Physical Exam
General: No Apparent Distress, Comfortable and Appears Chronically Ill
HEENT: NormoCephalic
Respiratory: Clear
Cardiac: S1/S2 and Regular Rhythm
GI: Soft and Non Tender
Musculoskeletal: No Clubbing
Skin: Warm
Neuro: Awake, Alert, Oriented and AO x 3
Hematologic/Lymphatic: No Lymphadenopathy
Psych: Calm
74 y/o male with a PMH of diabetes, CHF, HTN, hyperlipidemia, sarcoidosis, and heart transplant (2019) presenting with generalized weakness x 2 days.
PLAN:
#Weakness
-states 40lb weight loss although no evidence of much change since 2 years ago as per our weights
� most likely decondition v underlying malignancy although will hold on ct cont due to acute CATIE
� Follow-up CT chest, abdomen, pelvis without IV contrast due to CATIE with no clear evidence of malignancy
� PT/OT
-needs GI and primary screening performed outpatient
-no urinary symptoms
-F/u GI for scope outpatient
#Right nondisplaced fracture through the surgical neck of the right proximal humerus
-Conservative management
- Nonweightbearing
� Follow-up Dr. Durga Ruelas, orthopedics outpatient
#Repeated febrile episode
-most likely viral
-sars-cov-2 and flu neg
-UA negative, blood cultures neg
-repeat blood cultures, UA
-DVT studies negative
-ctm fever curve; if unresolving - consult ID in transplant pt
�Low threshold to start antibiotics
#Leukocytosis
� Most likely secondary to acute stress
� Continue to monitor for evidence of infection, white count, fever curve
-trending down on its own without antibiotics
#Hypokalemia
Monitor replete
#CATIE
� Possibly secondary to decreased p.o. intake, dehydration versus sepsis
� Continue IV fluids
� Monitor serum creatinine
-resolving
#Hyponatremia
� Most likely secondary to hypovolemia
� Trend with resuscitation
#DM
-cont AISS
#Hx heart transplant
cont home immunosuppressants
#HTN
hold lisinopril due to catie
#HLD
cont home atorvastatin
#sarcoidosis
cont home prednisone
dvt ppx HSQ
DNR as per patient
Dispo: to ensure no more fevers, f/u cultures; Will need rehab placement
Anticipated Discharge: 24 - 48 hours
Subjective/Interval History
-
Date of Service: January 14, 2024
no acute events, no fevers
Objective Data
-
Labs:
Laboratory Results
01/14/24
06:06
WBC 5.4
Hgb 12.9 L
Hct 38.5 L
Plt Count 304 D
Sodium 137
Potassium 3.6
Chloride 103
Carbon Dioxide 26
BUN 25 H
Creatinine 0.9
Glucose 129 H
Calcium 8.5
Total Bilirubin 0.8
AST 24
ALT 23
Alkaline Phosphatase 98
Vital Signs:
Vital Signs
Temp Pulse Resp BP Pulse Ox
97.4 F 80 18 158/88 96
01/14/24 07:55 01/14/24 07:55 01/14/24 07:55 01/14/24 07:55 01/14/24 07:55
I&O
01/13/24 01/14/24 01/15/24
06:59 06:59 06:59
Intake Total 960 / 960 650 / 650
Output Total 2288 / 2288 1260 / 1260
Balance -1328 / -1328 -610 / -610
Review of Systems
-
History Source: Patient
All other systems: Not reviewed unless documented
Data Reviewed
-
CT Scan: Image personally visualized and interpreted and Report Reviewed by me
Ultrasound: Image personally visualized and interpreted
Labs: Labs Reviewed by me
[2024-01-14 14:34] VITALS: BP 103/64; BP 113/67; PULSE 83
[2024-01-14 15:50] VITALS: BP 127/71
[2024-01-14 16:41] LABS: Glucose - Point of Care 341 mg/dl (70-99)
[2024-01-14] MEDS: NOVOLOG FLEXPEN-HIGH RESISTANCE 10 UNITS SC (16:43)
[2024-01-14 21:12] LABS: Glucose - Point of Care 135 mg/dl (70-99)
[2024-01-14] MEDS: LIPITOR 40 MG PO (21:18)
[2024-01-14 23:42] VITALS: BP 151/76
[2024-01-15 06:00] VITALS: BMI 21.6
[2024-01-15 07:25] VITALS: BP 148/73
[2024-01-15 07:27] LABS: Hematocrit 35.2 % (39.0-52.0); Hemoglobin 12.1 g/dL (13.0-18.0); Mean Corp Hgb Conc. 34.4 g/dL (33.0-37.0); Mean Corpuscular Hgb 30.2 pg (27.0-31.0); Mean Corpuscular Volume 87.8 fL (80.0-94.0); Mean Platelet Volume 9.7 fL (7.4-10.4); Platelet Count 304 10^3/uL (130-400); Red Blood Cell Count 4.01 10^6/uL (4.70-6.10); Red Cell Dist. Width 13.2 % (11.5-14.5)
[2024-01-15 07:36] LABS: Glucose - Point of Care 158 mg/dl (70-99)
[2024-01-15 08:07] LABS: ALT (SGPT) 26 U/L (0-50); AST (SGOT) 27 U/L (17-59); Alkaline Phosphatase 92 U/L (38-126); Blood Urea Nitrogen 29 mg/dl (9-20); Calcium 8.4 mg/dl (8.4-10.2); Carbon Dioxide 26 mmol/L (22-30); Chloride 106 mmol/L (98-107); Estimated Creatinine Clearance 56 ml/min; Glucose 134 mg/dl (70-99); Potassium 3.8 mmol/L (3.5-5.1); Sodium 136 mmol/L (135-145); Total Bilirubin 0.6 mg/dl (0.2-1.3); Total Protein 5.7 g/dl (6.3-8.2); eGFR > 60.00
[2024-01-15] MEDS: PROTONIX 40 MG PO (08:27)
[2024-01-15] MEDS: DELTASONE 5 MG PO (08:27)
[2024-01-15] MEDS: ASPIR LOW (ENTERIC COATED) 81 MG PO (08:27)
[2024-01-15] MEDS: PLAVIX 75 MG PO (08:27)
[2024-01-15] MEDS: FLOMAX 0.400000000000000022 MG PO (08:27)
[2024-01-15] MEDS: PROGRAF 1 MG PO ×2 (08:28→20:23)
[2024-01-15] MEDS: THERAGRAN 1 TABLET PO (08:28)
[2024-01-15] MEDS: HEPARIN 5000 UNITS SC ×2 (08:28→17:06)
[2024-01-15] MEDS: MAG-TAB SR 84 MG PO ×2 (08:28→20:23)
[2024-01-15] MEDS: NORVASC 10 MG PO (08:28)
[2024-01-15] MEDS: NOVOLOG FLEXPEN-HIGH RESISTANCE 2 UNITS SC ×2 (08:30→12:47)
[2024-01-15] MEDS: PERCOCET 5/325 1 TABLET PO (08:39)
[2024-01-15 11:20] LABS: Glucose - Point of Care 173 mg/dl (70-99)
--- NOTE | 2024-01-15 13:18 | W.PN.HOSP.TC ---
Today's Communication/Plan
-
medically clear for snf rehab
CM notified
Assessment / Plan
Assessment / Plan
74 y/o male with a PMH of diabetes, CHF, HTN, hyperlipidemia, sarcoidosis, and heart transplant (2019) presenting with generalized weakness x 2 days.
PLAN:
#Generalized Weakness
-states 40lb weight loss although no evidence of much change since 2 years ago as per our weights
� Follow-up CT chest, abdomen, pelvis without IV contrast due to CATIE with no clear evidence of malignancy
� PT/OT recommended rehab
- needs age appropriate screening for malignancy with PCP office
#Right nondisplaced fracture through the surgical neck of the right proximal humerus
- Conservative management
- Nonweightbearing
� Follow-up Dr. Durga Ruelas, orthopedics outpatient
#Repeated febrile episode
-most likely viral
-sars-cov-2 and flu neg
-UA negative, blood cultures neg
-repeat blood cultures, UA
-DVT studies negative
-Remains fever free at this point.
#Leukocytosis
� Most likely secondary to acute stress
� Continue to monitor for evidence of infection, white count, fever curve
- trending down on its own without antibiotics
#Hypokalemia
- Monitor replete
#CATIE - resolved
� Possibly secondary to decreased p.o. intake, dehydration versus sepsis
� Continue IV fluids
� Monitor serum creatinine
#Hyponatremia
� Most likely secondary to hypovolemia
� Trend with resuscitation
#DM
-cont AISS
#Hx heart transplant
cont home immunosuppressants
#HTN
- resume back lisinopril
#HLD
-cont home atorvastatin
#sarcoidosis
-cont home prednisone
dvt ppx HSQ
DNR as per patient
Anticipated Discharge: Today
Subjective/Interval History
-
Date of Service: January 15, 2024
Resting comfortably in bed
Afebrile at night
Objective Data
-
Labs:
Laboratory Results
01/15/24
06:38
WBC 6.0
Hgb 12.1 L
Hct 35.2 L
Plt Count 304
Sodium 136
Potassium 3.8
Chloride 106
Carbon Dioxide 26
BUN 29 H
Creatinine 1.1
Glucose 134 H
Calcium 8.4
Total Bilirubin 0.6
AST 27
ALT 26
Alkaline Phosphatase 92
Vital Signs:
Vital Signs
Temp Pulse Resp BP Pulse Ox
98.3 F 68 16 148/73 97
01/15/24 07:25 01/15/24 08:28 01/15/24 07:25 01/15/24 08:28 01/15/24 07:25
I&O
01/14/24 01/15/24 01/16/24
06:59 06:59 06:59
Intake Total 650 / 650 1420 / 1420
Output Total 1260 / 1260 500 / 500
Balance -610 / -610 920 / 920
Review of Systems
-
Respiratory: Reports No Symptoms
Cardiac: Reports No Symptoms
Abdomen/GI: Reports No Symptoms
Physical Exam
-
General: Comfortable
HEENT: Negative Oxygen
Neuro: Awake, Alert and Oriented
[2024-01-15] MEDS: ZESTRIL 20 MG PO (14:03)
[2024-01-15 14:55] VITALS: BP 124/71; BP 127/72; PULSE 72; O2SAT 99
[2024-01-15 15:01] VITALS: BP 124/71; BP 127/72; PULSE 72; O2SAT 99
[2024-01-15 15:25] VITALS: BP 117/67
[2024-01-15 16:53] LABS: Glucose - Point of Care 245 mg/dl (70-99)
[2024-01-15] MEDS: NOVOLOG FLEXPEN-HIGH RESISTANCE 4 UNITS SC (17:07)
--- NOTE | 2024-01-15 17:33 | CM ---
PT OT suggested SNF .
Spoke with patient and dgt Marlys [phone] both agreed on SNF need.
Additional SNF placed for [facility] and [facility] . [facility] can not accept.
Will need auth.
PLAN To SNf after located and auth obtained
[2024-01-15 21:30] LABS: Glucose - Point of Care 111 mg/dl (70-99)
[2024-01-15] MEDS: LIPITOR 40 MG PO (21:53)
[2024-01-15 23:03] VITALS: BP 134/65
[2024-01-16] MEDS: HEPARIN 5000 UNITS SC ×3 (00:17→15:53)
[2024-01-16 06:00] VITALS: BMI 22.0
[2024-01-16 07:00] VITALS: BP 136/73
[2024-01-16 07:30] LABS: Glucose - Point of Care 135 mg/dl (70-99)
[2024-01-16 07:57] LABS: Hematocrit 38.6 % (39.0-52.0); Hemoglobin 13.3 g/dL (13.0-18.0); Mean Corp Hgb Conc. 34.5 g/dL (33.0-37.0); Mean Corpuscular Hgb 30.1 pg (27.0-31.0); Mean Corpuscular Volume 87.3 fL (80.0-94.0); Mean Platelet Volume 9.7 fL (7.4-10.4); Platelet Count 331 10^3/uL (130-400); Red Blood Cell Count 4.42 10^6/uL (4.70-6.10); Red Cell Dist. Width 13.2 % (11.5-14.5); White Blood Cell Count 5.6 10^3/uL (4.8-10.8)
[2024-01-16] MEDS: FLOMAX 0.400000000000000022 MG PO (08:06)
[2024-01-16] MEDS: ASPIR LOW (ENTERIC COATED) 81 MG PO (08:06)
[2024-01-16] MEDS: MAG-TAB SR 84 MG PO ×2 (08:06→20:50)
[2024-01-16] MEDS: PLAVIX 75 MG PO (08:06)
[2024-01-16] MEDS: NORVASC 10 MG PO (08:06)
[2024-01-16] MEDS: ZESTRIL 20 MG PO (08:06)
[2024-01-16] MEDS: THERAGRAN 1 TABLET PO (08:06)
[2024-01-16] MEDS: PROGRAF 1 MG PO ×2 (08:06→20:50)
[2024-01-16] MEDS: PROTONIX 40 MG PO (08:06)
[2024-01-16] MEDS: DELTASONE 5 MG PO (08:06)
[2024-01-16] MEDS: NOVOLOG FLEXPEN-HIGH RESISTANCE 1 UNITS SC (08:08)
[2024-01-16 08:24] LABS: ALT (SGPT) 32 U/L (0-50); AST (SGOT) 36 U/L (17-59); Albumin 3.3 g/dl (3.5-5.0); Alkaline Phosphatase 102 U/L (38-126); Blood Urea Nitrogen 27 mg/dl (9-20); Calcium 8.6 mg/dl (8.4-10.2); Carbon Dioxide 26 mmol/L (22-30); Chloride 108 mmol/L (98-107); Estimated Creatinine Clearance 70 ml/min; Glucose 125 mg/dl (70-99); Potassium 3.7 mmol/L (3.5-5.1); Sodium 137 mmol/L (135-145); Total Bilirubin 0.7 mg/dl (0.2-1.3); eGFR > 60.00
[2024-01-16 11:52] LABS: Glucose - Point of Care 199 mg/dl (70-99)
[2024-01-16] MEDS: NOVOLOG FLEXPEN-HIGH RESISTANCE 2 UNITS SC (12:46)
[2024-01-16 13:48] VITALS: BP 103/61; BP 104/62; PULSE 68; PULSE 74; O2SAT 98
[2024-01-16 15:00] VITALS: BP 123/67
--- NOTE | 2024-01-16 15:17 | W.PN.HOSP.TC ---
Today's Communication/Plan
-
medically appropriate for rehab discharge
Assessment / Plan
Assessment / Plan
74 y/o male with a PMH of diabetes, CHF, HTN, hyperlipidemia, sarcoidosis, and heart transplant (2019) presenting with generalized weakness x 2 days.
#Generalized Weakness
-states 40lb weight loss although no evidence of much change since 2 years ago as per our weights
� Follow-up CT chest, abdomen, pelvis without IV contrast due to CATIE with no clear evidence of malignancy
� PT/OT recommended rehab
- needs age appropriate screening for malignancy with PCP office
#Right nondisplaced fracture through the surgical neck of the right proximal humerus
- Conservative management
- Nonweightbearing
� Follow-up Dr. Durga Ruelas, orthopedics outpatient
#Fever episode - resolved
-most likely viral
-SARS-cov-2 and flu neg
-UA negative, blood cultures neg
-DVT studies negative
-Remains fever free at this point.
#Leukocytosis -resolved
-Most likely secondary to acute stress
-Continue to monitor for evidence of infection, white count, fever curve
-trending down on its own without antibiotics
#Hypokalemia
- Monitor replete
#CATIE - resolved
� Possibly secondary to decreased p.o. intake, dehydration versus sepsis
� Continue IV fluids
� Monitor serum creatinine
#Hyponatremia
� Most likely secondary to hypovolemia
� Trend with resuscitation
#DM
-cont AISS
#Hx heart transplant
cont home immunosuppressants
#HTN
- resume back lisinopril
#HLD
-cont home atorvastatin
#sarcoidosis
-cont home prednisone
dvt ppx HSQ
DNR as per patient
Anticipated Discharge: Today
Subjective/Interval History
-
Date of Service: January 16, 2024
afebrile overnight
no new complains
Objective Data
-
Labs:
Laboratory Results
01/16/24
06:28
WBC 5.6
Hgb 13.3
Hct 38.6 L
Plt Count 331
Sodium 137
Potassium 3.7
Chloride 108 H
Carbon Dioxide 26
BUN 27 H
Creatinine 0.9
Glucose 125 H
Calcium 8.6
Total Bilirubin 0.7
AST 36
ALT 32
Alkaline Phosphatase 102
Vital Signs:
Vital Signs
Temp Pulse Resp BP Pulse Ox
97.9 F 72 18 136/73 95
01/16/24 07:00 01/16/24 08:06 01/16/24 07:00 01/16/24 08:06 01/16/24 08:10
I&O
01/15/24 01/16/24 01/17/24
06:59 06:59 06:59
Intake Total 1420 / 1420 1979 / 1979
Output Total 500 / 500 2024 / 2024 350 / 350
Balance 920 / 920 -45 / -45 -350 / -350
Review of Systems
-
Respiratory: Reports No Symptoms
Cardiac: Reports No Symptoms
Abdomen/GI: Reports No Symptoms
Physical Exam
-
General: Comfortable
HEENT: Negative Oxygen
Respiratory: Clear to Auscultation
Cardiac: Regular Rhythm and S1/S2; Negative Murmur
GI: Soft and Nontender
Musculoskeletal: No Edema
Neuro: Awake, Alert and Oriented
--- NOTE | 2024-01-16 15:46 | CM ---
CM reviewed pt with Dr Hahn and pt remains ready for dc
Beds offered at [facility] and [facility]
Call with cousin/POA and [facility] is preferred facility
Call with [facility] (not [facility]) and auth obtained for SNF and BLS
Unable to arrange for timely BLS transport
[facility] and Dr Hahn in agreement with dc tomorrow
IMM completed with pt bedside- copy provided
Cousin updated on dc plans
Medical necessity and transport form on chart
[facility]
SNF #[id number] 7 days
01/15-01/21 ([facility]) call [phone]
[facility] #[id number]
[address], good for today only
Will need updated BLS auth with new date for tomorrow
Discharge Disposition- [facility] tomorrow with ambulance
Phone- [phone] Fax- [phone]
[2024-01-16 16:51] LABS: Glucose - Point of Care 125 mg/dl (70-99)
[2024-01-16] MEDS: NOVOLOG FLEXPEN-HIGH RESISTANCE SC (17:00)
[2024-01-16 21:28] LABS: Glucose - Point of Care 157 mg/dl (70-99)
[2024-01-16] MEDS: LIPITOR 40 MG PO (21:31)
[2024-01-16] MEDS: SENOKOT 8.59999999999999964 MG PO (22:29)
[2024-01-16 23:43] VITALS: BP 154/70
[2024-01-17] MEDS: HEPARIN 5000 UNITS SC ×2 (00:47→08:11)
[2024-01-17 06:00] VITALS: BMI 21.5
[2024-01-17 07:00] VITALS: BP 115/67
[2024-01-17 08:02] LABS: Hematocrit 38.6 % (39.0-52.0); Mean Corp Hgb Conc. 33.7 g/dL (33.0-37.0); Mean Corpuscular Volume 88.9 fL (80.0-94.0); Mean Platelet Volume 9.7 fL (7.4-10.4); Platelet Count 376 10^3/uL (130-400); Red Blood Cell Count 4.34 10^6/uL (4.70-6.10); Red Cell Dist. Width 13.2 % (11.5-14.5); White Blood Cell Count 6.6 10^3/uL (4.8-10.8)
[2024-01-17 08:08] LABS: Glucose - Point of Care 251 mg/dl (70-99)
[2024-01-17] MEDS: MAG-TAB SR 84 MG PO (08:12)
[2024-01-17] MEDS: ASPIR LOW (ENTERIC COATED) 81 MG PO (08:12)
[2024-01-17] MEDS: ZESTRIL 20 MG PO (08:12)
[2024-01-17] MEDS: DELTASONE 5 MG PO (08:12)
[2024-01-17] MEDS: PLAVIX 75 MG PO (08:12)
[2024-01-17] MEDS: PROTONIX 40 MG PO (08:12)
[2024-01-17] MEDS: FLOMAX 0.400000000000000022 MG PO (08:12)
[2024-01-17] MEDS: THERAGRAN 1 TABLET PO (08:13)
[2024-01-17] MEDS: PROGRAF 1 MG PO (08:13)
[2024-01-17] MEDS: NORVASC 10 MG PO (08:13)
[2024-01-17 08:17] LABS: ALT (SGPT) 34 U/L (0-50); AST (SGOT) 33 U/L (17-59); Albumin 3.1 g/dl (3.5-5.0); Alkaline Phosphatase 91 U/L (38-126); Blood Urea Nitrogen 31 mg/dl (9-20); Calcium 8.8 mg/dl (8.4-10.2); Carbon Dioxide 27 mmol/L (22-30); Chloride 104 mmol/L (98-107); Estimated Creatinine Clearance 61 ml/min; Glucose 137 mg/dl (70-99); Potassium 4.1 mmol/L (3.5-5.1); Sodium 138 mmol/L (135-145); Total Bilirubin 0.5 mg/dl (0.2-1.3); Total Protein 5.7 g/dl (6.3-8.2); eGFR > 60.00
[2024-01-17] MEDS: NOVOLOG FLEXPEN-HIGH RESISTANCE 7 UNITS SC (08:17)
--- NOTE | 2024-01-17 11:44 | CM ---
entered order for discharge.
Auth obtained for [facility] and acute care ambulance as follows [facility] #[id number] 7 days 01/15-01/21 ([facility]) call [phone].
Wendy at [facility] aware of auth and has abed today.
[facility] Acute Care #[id number] Med nec form on chart.
with Lilian JOHN no call back yet
Will need updated [facility] auth with new date for tomorrow
[facility]
Phone- [phone]
Fax- [phone]
PLAN [facility] with ambulance
--- NOTE | 2024-01-17 11:56 | PN.CDI ---
CDI
- -
CDI:
Physician Documentation Request
Admit Date: 01/10/24 09:49
Dear Doctor Jovani,
Patient admitted with CATIE.
H&P, 'Acknowledges feeling weaker and falling many times over the last 2 weeks.'
01/15 PN, 'Right nondisplaced fracture through the surgical neck of the right proximal humerus.....Hx heart transplant....
cont home immunosuppressants.
Patient's home med list includes Prograf and Prednisone.
Please clarify the likely etiology/ etiologies of right proximal humerus fracture:
Multifactorial due to low level falls and osteoporosis due to age/ immunosuppressants.
Low level falls only
Other
Use of terms such as suspected, likely, concern for, or probable (associated with a specific diagnosis that is being evaluated, monitored, or treated as if it exists) are acceptable and can be coded in the inpatient setting, when documented at the
time of discharge.
Thank you,
Kaitlin SWAIN,RN,CCDS
CDI Specialist
Available via [place] text
Please use your independent medical judgment in providing your response.
[2024-01-17 12:27] LABS: Glucose - Point of Care 118 mg/dl (70-99)
--- NOTE | 2024-01-17 12:39 | PN.CDI ---
CDI
- -
CDI:
Physician Documentation Request
Admit Date: 01/10/24 09:49
Dear Doctor Jovani,
Patient admitted with CATIE.
01/15 PN, 'Hx heart transplant...cont home immunosuppressants.'
Patient's home med list includes Prograf and Prednisone.
Based on the above, could you clarify in the progress notes, the appropriate diagnosis, if significant, that supports the above abnormalities and additional evaluation, monitoring and/or treatment rendered:
Immunocompromised state
Other
Unable to determine
Use of terms such as suspected, likely, concern for, or probable (associated with a specific diagnosis that is being evaluated, monitored, or treated as if it exists) are acceptable and can be coded in the inpatient setting, when documented at the
time of discharge.
Thank you,
Kaitlin SWAIN,RN,CCDS
CDI Specialist
Available via [place] text
Please use your independent medical judgment in providing your response.
[2024-01-17] MEDS: NOVOLOG FLEXPEN-HIGH RESISTANCE SC (12:44)
--- NOTE | 2024-01-17 12:59 | PTCARENOTE ---
Report called nurse Victor at [facility]. Ambulance fruit picker arranged for 151 today.
--- NOTE | 2024-01-17 14:05 | W.PN.HOSP.TC ---
Addendum entered and electronically signed by David Hahn MD 01/17/24 14:09:
Add on to dx list :
Humerus fracture is Multifactorial due to low level falls and osteoporosis due to age/ immunosuppressants.
patient is immunocompromised state with prograf use
Original Note:
Today's Communication/Plan
-
d/c home
Assessment / Plan
Assessment / Plan
74 y/o male with a PMH of diabetes, CHF, HTN, hyperlipidemia, sarcoidosis, and heart transplant (2019) presenting with generalized weakness x 2 days.
#Generalized Weakness
-states 40lb weight loss although no evidence of much change since 2 years ago as per our weights
� Follow-up CT chest, abdomen, pelvis without IV contrast due to CATIE with no clear evidence of malignancy
� PT/OT recommended rehab
- needs age appropriate screening for malignancy with PCP office
#Right nondisplaced fracture through the surgical neck of the right proximal humerus
- Conservative management
- Nonweightbearing
� Follow-up Dr. Durga Ruelas, orthopedics outpatient
#Fever episode - resolved
-most likely viral
-SARS-cov-2 and flu neg
-UA negative, blood cultures neg
-DVT studies negative
-Remains fever free at this point.
#Leukocytosis -resolved
-Most likely secondary to acute stress
-Continue to monitor for evidence of infection, white count, fever curve
-trending down on its own without antibiotics
#Hypokalemia -resolved
- Monitor replete
#CATIE - resolved
� Possibly secondary to decreased p.o. intake, dehydration versus sepsis
� Continue IV fluids
� Monitor serum creatinine
#Hyponatremia - resolved
� Most likely secondary to hypovolemia
� Trend with resuscitation
#DM
-cont AISS
#Hx heart transplant
cont home immunosuppressants
#HTN
- resume back lisinopril
#HLD
-cont home atorvastatin
#sarcoidosis
-cont home prednisone
dvt ppx HSQ
DNR as per patient
More than 30 minutes spent in discharge including
Final examination of the patient
Summarizing hospital stay
Instructions for continuing care to all relevant caregivers
Preparation of discharge records, prescriptions, and referral forms
Total time spent (in minutes): 40 mins
Anticipated Discharge: Today
Subjective/Interval History
-
Date of Service: January 17, 2024
no issues overnight
Objective Data
-
Labs:
Laboratory Results
01/17/24
06:29
WBC 6.6
Hgb 13.0
Hct 38.6 L
Plt Count 376
Sodium 138
Potassium 4.1
Chloride 104
Carbon Dioxide 27
BUN 31 H
Creatinine 1.0
Glucose 137 H
Calcium 8.8
Total Bilirubin 0.5
AST 33
ALT 34
Alkaline Phosphatase 91
Vital Signs:
Vital Signs
Temp Pulse Resp BP Pulse Ox
97.4 F 65 18 115/67 97
01/17/24 07:00 01/17/24 08:13 01/17/24 07:00 01/17/24 08:13 01/17/24 08:19
I&O
01/16/24 01/17/24 01/18/24
06:59 06:59 06:59
Intake Total 1979 / 1979 1080 / 1080
Output Total 2024 1675 / 1675
Balance -45 / -45 -595 / -595
Review of Systems
-
Respiratory: Reports No Symptoms
Cardiac: Reports No Symptoms
Abdomen/GI: Reports No Symptoms
Physical Exam
-
General: Comfortable
HEENT: Negative Oxygen
Respiratory: Clear to Auscultation
Cardiac: Regular Rhythm and S1/S2; Negative Murmur
GI: Soft and Nontender
Musculoskeletal: No Edema
Neuro: Awake, Alert and Oriented
--- NOTE | 2024-01-19 07:41 | W.DCSUMMARY ---
Discharge Summary
Discharge Data
Date of Admission: 01/10/24
Date of Discharge: 01/17/24
-
Pending Results: No
Hospital Course
Discharging Physician : Dr David Hahn
Disposition : SNF rehab
Primary care physician : Unknown
Principal Discharge diagnosis :
Generalized weakness
Acute kidney injury
Unintentional weight loss
Nondisplaced fracture of right proximal humerus surgical neck
Fever of unclear origin
Reactive leukocytosis
Chronic Discharge diagnosis :
Ffx-rghvmfq-ybjsdjvkp diabetes mellitus
History of heart transplant on immunosuppression therapy
Essential hypertension
Hyperlipidemia
History of sarcoidosis
Hospital Course :
Patient is a 73-year-old male with above-mentioned past medical history came to ER for having new onset of progressive weakness. Patient had other nonspecific symptoms of sensation change in feet reported weight loss. Laboratory evaluation showing
patient having minimal leukocytosis and some renal failure going on and was started on IV fluid. With reported weakness and weight loss concern of malignancy and patient had a CT chest abdomen pelvis which was negative for any acute abnormality.
Patient renal function normalized. Patient incidentally started to having fever episode source of which remained unclear. Patient had septic workup with check for COVID/flu/UA/lower extremity Doppler/blood culture and all were negative. Patient
had spontaneous resolution of fever episode. Patient also have right nondisplaced surgical neck fracture of proximal humerus and was managed conservatively. Patient to follow-up with orthopedic surgeon in office. Patient evaluated by physical
therapy and was appropriate for rehab, patient was discharged to senior care facility for rehab.
Important imaging findings :
None
Procedure findings :
None
Discharge Plan
-
Patient Disposition: Residential/SNF
Discharge Diagnosis/Procedures: Right humeral neck fracture, weakness, fever
Condition: Fair
Diet: Regular
Activity: Other activity
Additional Activity: No RUE weight bearing
Driving Restrictions: No driving
Bathing Restrictions: OK to Shower
Referrals:
Durga Ruelas MD [Active] - in two weeks
PRIVATE,PHYSICIAN [Family Provider] -
Prescriptions:
New
amlodipine 10 mg Tablet
10 mg PO DAILY Qty: 30 0RF
oxycodone-acetaminophen [Percocet] 5-325 mg tablet
1 tab PO BID PRN (Reason: sev pain) Qty: 6 0RF
Continued
atorvastatin 40 MG tablet
40 mg PO HS
tacrolimus 1 MG capsule
1 mg PO BID
prednisone 5 MG tablet
5 mg PO DAILY
aspirin 81 MG tablet,delayed release (DR/EC)
81 mg PO DAILY
tamsulosin 0.4 MG capsule
0.4 mg PO DAILY
magnesium oxide 400 MG tablet
400 mg PO BID
lisinopril 20 mg Tablet
20 mg PO DAILY
clopidogrel 75 mg Tablet
75 mg PO DAILY
lansoprazole 30 mg Capsule,Delayed Release(Dr/Ec)
30 mg PO DAILY
Multivitamin 50 Plus Tablet
1 tab PO DAILY
insulin aspart U-100 [Novolog FlexPen U-100 Insulin] 100 unit/mL (3 mL) Insulin Pen
0 sliding scale dose SC DIRECTED
Patient Comments:
01/10/2024, pt. unsure of sliding scale and states to only use this med. in the morning with breakfast.
Discontinued
oxycodone-acetaminophen 5-325 mg Tablet
1 tab PO BIDPRN PRN (Reason: severe pain)
Patient Comments:
01/10/2024, pt. filled this med. on 12/11/2023 for 60 tablets per PDMP.
Discharge Orders:
Discharge Patient (As Directed); Ordered 01/17/24
Ordered By: David Hahn
Discharge Date and Time
Discharge Date/Time: 01/17/24 15:22
== END 2024-01-17 15:22 | DRG 683 ==
LOC: 4 EAST ACU 09:49
PROVIDERS: ADMITTING PHYSICIAN Internal Medicine; ATTENDING PHYSICIAN Hospitalist; EMERGENCY PHYSICIAN Student in an Organized Health Care Education/Training Program
DX: N17.9 Acute kidney failure, unspecified (principal); D84.9 Immunodeficiency, unspecified; S42.201A Unspecified fracture of upper end of right humerus, initial encounter for closed fracture; E87.1 Hypo-osmolality and hyponatremia; M80.021A Age-related osteoporosis with current pathological fracture, right humerus, initial encounter for fracture; Z94.1 Heart transplant status; R63.4 Abnormal weight loss; E87.6 Hypokalemia; E86.1 Hypovolemia; E11.9 Type 2 diabetes mellitus without complications; I50.9 Heart failure, unspecified; I11.0 Hypertensive heart disease with heart failure; D86.9 Sarcoidosis, unspecified; Z66 Do not resuscitate; E78.00 Pure hypercholesterolemia, unspecified; Z11.52 Encounter for screening for COVID-19
CPT/HCPCS: 71250; 73030; 74176; 80053; 81003; 81015; 82248; 82962; 83036; 83735; 85025; 85027; 87040; 87502; 87811; 93005; 93306; 93970; 94760; 96360; 96361; 97110; 97116; 97163; 97167; 97530; 97535; 99285

== ENCOUNTER → 2024-01-19 11:35 | Outpatient (REF) | payer OTHER, SELFPAY ==
[2024-01-19 12:19] LABS: Hematocrit 38.4 % (39.0-52.0); Hemoglobin 12.8 g/dL (13.0-18.0); Mean Corp Hgb Conc. 33.3 g/dL (33.0-37.0); Mean Corpuscular Hgb 30.5 pg (27.0-31.0); Mean Corpuscular Volume 91.4 fL (80.0-94.0); Mean Platelet Volume 9.5 fL (7.4-10.4); Platelet Count 397 10^3/uL (130-400); Red Cell Dist. Width 13.4 % (11.5-14.5); White Blood Cell Count 7.4 10^3/uL (4.8-10.8)
[2024-01-19 12:30] LABS: Blood Urea Nitrogen 40 mg/dl (9-20); Calcium 8.9 mg/dl (8.4-10.2); Carbon Dioxide 26 mmol/L (22-30); Chloride 104 mmol/L (98-107); Glucose 121 mg/dl (70-99); Potassium 4.4 mmol/L (3.5-5.1); Sodium 138 mmol/L (135-145); eGFR > 60.00
== END ==
LOC: OLABP 11:35
PROVIDERS: ATTENDING PHYSICIAN Family Medicine
DX: S42.201D Unspecified fracture of upper end of right humerus, subsequent encounter for fracture with routine healing (principal); E11.9 Type 2 diabetes mellitus without complications; I50.9 Heart failure, unspecified; I11.0 Hypertensive heart disease with heart failure; D86.0 Sarcoidosis of lung; M62.81 Muscle weakness (generalized)
CPT/HCPCS: 36415; 80048; 85027

== ENCOUNTER → 2024-01-22 10:04 | Outpatient (REF) | payer OTHER, SELFPAY ==
[2024-01-22 12:47] LABS: Glycohemoglobin (HgbA1c) 7.1 % (4.0-5.6)
== END ==
LOC: OLABP 10:04
PROVIDERS: ATTENDING PHYSICIAN Family Medicine
DX: M62.81 Muscle weakness (generalized) (principal); D86.0 Sarcoidosis of lung; I11.0 Hypertensive heart disease with heart failure; I50.9 Heart failure, unspecified; E11.9 Type 2 diabetes mellitus without complications; S42.201D Unspecified fracture of upper end of right humerus, subsequent encounter for fracture with routine healing
CPT/HCPCS: 36415; 83036

== ENCOUNTER → 2024-01-30 09:07 | Outpatient (REF) | payer OTHER, SELFPAY ==
[2024-01-30 09:37] LABS: % Basophils 1.7 % (0-2); % Eosinophils 1.4 % (0-6); % Immature Granulocytes 0.3 % (0-0.5); % Lymphocytes 28.9 % (20.5-51.1); % Monocytes 8.7 % (1.7-9.3); Absolute Basophils 0.1 10^3/uL (0-0.2); Absolute Eosinophils 0.1 10^3/uL (0-0.7); Absolute Lymphocytes 2.1 10^3/uL (1.2-3.4); Absolute Monocytes 0.6 10^3/uL (0.1-0.6); Absolute Neutrophils 4.2 10^3/uL (1.4-6.5); Hematocrit 39.5 % (39.0-52.0); Hemoglobin 13.3 g/dL (13.0-18.0); Mean Corp Hgb Conc. 33.7 g/dL (33.0-37.0); Mean Corpuscular Hgb 30.6 pg (27.0-31.0); Mean Corpuscular Volume 90.8 fL (80.0-94.0); Nucleated Red Blood Cells % 0 % (-); Platelet Count 279 10^3/uL (130-400); Red Blood Cell Count 4.35 10^6/uL (4.70-6.10); Red Cell Dist. Width 13.4 % (11.5-14.5); White Blood Cell Count 7.2 10^3/uL (4.8-10.8)
[2024-01-30 18:14] LABS: Blood Urea Nitrogen 40 mg/dl (9-20); Calcium 9.7 mg/dl (8.4-10.2); Carbon Dioxide 16 mmol/L (22-30); Chloride 107 mmol/L (98-107); Glucose 107 mg/dl (70-99); Sodium 138 mmol/L (135-145); eGFR > 60.00
== END ==
LOC: OLABP 09:07
PROVIDERS: ATTENDING PHYSICIAN Family Medicine
DX: S42.201D Unspecified fracture of upper end of right humerus, subsequent encounter for fracture with routine healing (principal); E11.9 Type 2 diabetes mellitus without complications; I50.9 Heart failure, unspecified; I11.0 Hypertensive heart disease with heart failure; D86.0 Sarcoidosis of lung; M62.81 Muscle weakness (generalized)
CPT/HCPCS: 36415; 80048; 85025

== ENCOUNTER 2024-04-10 22:14 | Inpatient (IN) | payer OTHER, SELFPAY ==
[2024-04-10 19:54] VITALS: BP 194/99
[2024-04-10 20:11] VITALS: BMI 22.5
--- NOTE | 2024-04-10 20:30 | ED.GENMED ---
History of Present Illness
General
Chief Complaint: Skin Problem
Source: patient and family (son)
Exam Limitations: none
Time Seen by Provider: 04/10/24 20:08
Travel History
Have you had any contact with someone who has COVID-19?: No
Do you have any symptoms of coronavirus? Fever > 100 degrees, chills, cough, shortness of breath, sore throat, loss of taste or smell, muscle aches, or headache?: No
History of Present Illness
History of Present Illness:
This is a 73 year old male that comes in with c/o right arm pain and swelling. State that 2 days ago he started with right hand swelling. States that he went to see the PCP and was given Keflex and Doxycycline. States that he is very weak and today
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 States that he know has a skin tear on the right arm from this. States that he has a slight headache. Denies any fever, chills, chest pain, SOB, abd pain, nausea,
vomiting, diarrhea, dizziness, urinary burning.
Past History
Past History
ED Past Medical History: Cancer (Skin CA basal Cell), CHF, GERD, HTN, Hypercholesterolemia, IDDM and Other (Sarcoidosis, Cardiomyopathy, Diverticulitis, )
ED Past Surgical History: Cardiac (Heart transplant X 2) and Other (Cardiac transplant)
Social History
Tobacco: Former smoker
Alcohol: None
Drug: None
Personal: Single
Living: with family (Lives with son)
Review of Systems
Review of Systems
All Other Systems: ROS reviewed and negative except as documented in HPI and ROS
Constitutional: Reports no symptoms; Denies fever or chills
EENT: Reports no symptoms
Respiratory: Reports no symptoms; Denies cough or trouble breathing
Cardiac: Reports no symptoms; Denies chest pain
ABD/GI: Reports no symptoms; Denies abdominal pain, nausea, vomiting or diarrhea
: Reports no symptoms; Denies dysuria, frequency or urgency
Musculoskeletal: Reports other (Right arm discomfort with movement)
Skin: Reports other (Swelling right hand and arm with redness)
Neurological: Reports headache (Slight) and weakness; Denies dizzy
Psychiatric: Reports no symptoms
Phy Exam
General Physical Exam
General Presentation: no apparent distress
General age: appears stated age
General Skin: warm and dry
General Habitus: elderly
General Mental: alert
General Hydration: appears well hydrated
ENT Exam
ENT Exam: TM's normal, pharynx normal and neck supple
Eye Exam
Eye Exam: EOMI
Cardiovascular Exam
Cardiovascular Exam: regular rate/rhythm, no murmur and normal peripheral pulses
Pulmonary Exam
Pulmonary Exam: lungs clear, no respiratory distress, no rales, chest non tender, no crackles, no rhonchi, no wheezing and no cough
Gastrointestinal Exam
Gastrointestinal Exam: normal bowel sounds, non tender, soft, no organomegaly, no pulsatile mass and non distended
Musculoskeletal Exam
Musculoskeletal Exam: full ROM (negative for any discomfort with flexion of the elbow or movement of wrist or fingers) and edema (+2pitting edema of the lower legs bilateral, right hand and arm swelling )
Skin Exam
Skin Exam: normal color, warm/dry and redness (right hand and arm proximal to elbow)
Psychiatric Exam
Psychiatric Exam: normal mood/affect
Course
Orders/Labs/Results
Orders:
Orders
04/10/24 20:28
US Arms, Right [US Periph Venous UPPER Ext RT] Urgent
Comment:
Reason For Exam: sWELLING REDNESS
04/10/24 20:29
CR Chest - 2 Views Urgent
Comment:
Reason For Exam: eDEMA,
04/10/24 20:36
Piperacillin/Tazo 3.375 Gram [Zosyn] 3.375 gram in 50 ml IV NOW
Vancomycin 1 Gram/200 ml [Vancocin] 1 gram in 200 ml IV NOW
04/10/24 20:39
Electrocardiogram (*1) Urgent
Reason for Study: Fatigue / Weakness
EKG- Treatment ONCE
04/10/24 20:42
Complete Blood Count/With Diff Urgent
Comprehensive Metabolic Panel Urgent
Lactic Acid Urgent
NT-proBNP Urgent
Troponin I Urgent
Blood Culture Q30M
MALACHI Source: Blood/Venous
Specimen Description:
Blood Culture Q30M
MALACHI Source: Blood/Venous
Specimen Description:
04/10/24 21:36
Admit/Transfer Patient As Directed
Co-Sign Provider:
Level of Care: Inpatient admission
Assign to:: Telemetry
Physician / Group: Keerthi betancourtists
Diagnosis: RUE cellulitis
Reason for Telemetry: Chest Pain syndromes
Date to Stop Telemetry: 04/12/24
Time to Stop Telemetry: 11:00
Reason for Hospitalization: RUE cellulitis - IV Abx, ID eval
Expected length of stay greater than two midnights?: Yes
ELOS- Estimated Length of Stay in days: 3
I certify the patient meets the requirements for IP care: Yes
04/10/24 21:38
Code Status As Directed
Resuscitation Status: Full Code
04/10/24 22:01
Tacrolimus [Prograf] 1 mg PO NOW STA
04/10/24 22:02
Furosemide [Lasix] 20 mg IV NOW STA
Potassium Chloride [KCl] 40 meq PO NOW STA
04/12/24 11:00
DC Protocol for Telemetry ONCE
Abnormal Lab Results
04/10/24
20:42
WBC 17.4 H 10^3/uL
(4.8-10.8)
RBC 4.54 L 10^6/uL
(4.70-6.10)
Hct 38.6 L %
(39.0-52.0)
RDW 15.3 H %
(11.5-14.5)
Abs Immat Gran (auto) 0.1 H 10^3/uL
(0-0.05)
Absolute Neuts (auto) 15.2 H 10^3/uL
(1.4-6.5)
Absolute Lymphs (auto) 0.9 L 10^3/uL
(1.2-3.4)
Absolute Monos (auto) 1.1 H 10^3/uL
(0.1-0.6)
Immature Gran % 0.6 H %
(0-0.5)
Neutrophils % 87.6 H %
(42.2-75.2)
Lymphocytes % 4.9 L %
(20.5-51.1)
Potassium 3.1 L mmol/L
(3.5-5.1)
Carbon Dioxide 18 L mmol/L
(22-30)
BUN 53 H mg/dl
(9-20)
Creatinine 1.5 H mg/dL
(0.7-1.3)
Glucose 181 H mg/dl
(70-99)
Alkaline Phosphatase 135 H U/L
(38-126)
Troponin I 0.037 H* ng/ml
Total Protein 5.6 L g/dl
(6.3-8.2)
Albumin 3.0 L g/dl
(3.5-5.0)
04/10/24 20:42
04/10/24 20:42
Leukocytosis Hypokalemia, Carbon dioxide low. dehydration with chronic renal insufficiency, glucose nonfasting. ALk phos elevation. Total protein low. Albumin low. Lactic acid normal at 1.1
Troponin elevation at 0.037, Pro-BNP 2870
Vital Signs
Initial and Last Documented VS:
Initial Vital Signs
Temp Pulse Resp BP Pulse Ox
98.1 F 87 18 194/99 99
04/10/24 19:54 04/10/24 19:54 04/10/24 19:54 04/10/24 19:54 04/10/24 19:54
Last Documented Vital Signs
Temp Pulse Resp BP Pulse Ox
98.1 F 90 18 181/94 99
04/10/24 19:54 04/10/24 22:33 04/10/24 19:54 04/10/24 22:33 04/10/24 19:54
MDM/Problems Addressed
Differential Diagnosis Includes:
Right arm cellulitis,
MDM/Problems Addressed:
This is a 73 year old male that comes in with c/o right arm and hand redness and swelling. States that this started 2 days ago and he did see his PCP. Patient was given Doxycycline and Keflex. States that it is not getting any better and he is very
weak.
Will get labs, Culture. US right arm and admit. Will start IV antibiotics. Hospitalist notified.
Chronic conditions affecting care: DM, Cardiomyopathy and Other (Heart transplant x 2)
Acute Exacerbation and/or Progression of Chronic Illness: DM
*Radiology
Radiology exam reviewed: radiology read reviewed (Chest-NO acute cardiopulmonary process US-No sonographic evidence for right upper extremity venous thrombosis. )
*Pulse Oximetry
Patient hypoxic: no
*EKG
Interpreted by ED Provider?: Yes
Heart Rate: 90
Rate: normal
Rhythm: sinus
Gilbert: normal axis
Interval: first degree heart block
QRS Pattern: right bundle branch block (Incomplete)
Ischemia: T-wave inversion (aVR, V3, )
*Critical Care Note
Total Time (30-74mins, 75-104mins- exclusive of procedures): Not Applicable
ED Attending Note
-
Portions of this chart may have been created with voice recognition software.� Occasional wrong word or��sound alike� substitutions may have occurred due to the inherent limitations of voice recognition software.
Discharge Plan
Departure
Patient Disposition: Admit
Date of Disposition: 04/10/24
Time of Disposition: 21:20
Admit to: Telemetry
Presentation/result/management discussed w/ accepting MD/DO: Hospitalist
Patient with high blood pressure during this ER visit?: Yes
Condition: Good
Covid-19: Not Applicable
Discharge Problem:
Weakness generalized, Cellulitis of arm, right
Interventions
Interventions:
*Risk Screen - Suicide Last Done: 04/10/24 19:54
*General Assessment Last Done: 04/10/24 19:54
*Neglect/Abuse Screening Last Done: 04/10/24 19:54
ED- Fall Risk Assessment Last Done: 04/10/24 20:13
ED-Skin Assessment Last Done: 04/10/24 20:13
[2024-04-10 20:53] LABS: % Basophils 0.5 % (0-2); % Eosinophils 0.1 % (0-6); % Immature Granulocytes 0.6 % (0-0.5); % Lymphocytes 4.9 % (20.5-51.1); % Monocytes 6.3 % (1.7-9.3); % Neutrophils 87.6 % (42.2-75.2); Absolute Basophils 0.1 10^3/uL (0-0.2); Absolute Immature Granulocytes 0.1 10^3/uL (0-0.05); Absolute Lymphocytes 0.9 10^3/uL (1.2-3.4); Absolute Monocytes 1.1 10^3/uL (0.1-0.6); Absolute Neutrophils 15.2 10^3/uL (1.4-6.5); Hematocrit 38.6 % (39.0-52.0); Hemoglobin 13.6 g/dL (13.0-18.0); Mean Corp Hgb Conc. 35.2 g/dL (33.0-37.0); Nucleated Red Blood Cells % 0 % (-); Platelet Count 256 10^3/uL (130-400); Red Blood Cell Count 4.54 10^6/uL (4.70-6.10); Red Cell Dist. Width 15.3 % (11.5-14.5); White Blood Cell Count 17.4 10^3/uL (4.8-10.8)
[2024-04-10] MEDS: ZOSYN 50 IV (20:57)
[2024-04-10 21:04] LABS: Lactic Acid 1.1 mmol/L (0.7-2.0)
--- NOTE | 2024-04-10 21:07 | PHANOTE ---
04/10/2024, [employer] rec tech, spoke to pt.'s son to obtain pt.'s med. history; per son, pt. is taking Amlodipine 10 mg daily; however, last filled on 05/10/2023 for 90-day supply; could not confirm with a more current source.
[2024-04-10 21:18] LABS: ALT (SGPT) 32 U/L (0-50); AST (SGOT) 33 U/L (17-59); Alkaline Phosphatase 135 U/L (38-126); Blood Urea Nitrogen 53 mg/dl (9-20); Calcium 8.8 mg/dl (8.4-10.2); Carbon Dioxide 18 mmol/L (22-30); Chloride 106 mmol/L (98-107); Estimated Creatinine Clearance 43 ml/min; Glucose 181 mg/dl (70-99); Potassium 3.1 mmol/L (3.5-5.1); Sodium 137 mmol/L (135-145); Total Bilirubin 0.8 mg/dl (0.2-1.3); Total Protein 5.6 g/dl (6.3-8.2); eGFR 48.85
[2024-04-10 21:20] LABS: NT-proBNP 2870 pg/ml; Troponin I 0.037 ng/ml
--- NOTE | 2024-04-10 21:29 | HPS.HSE ---
Family Physician
-
Family Physician:
Chief Complaint
-
RUE cellulitis worsening
History of Present Illness
73 y/o M hx of cardiac transplant, CHF, HTN, cardiomyopathy, immunosuppression, NIDDM presenting to ER with worsening RUE cellulitis. Patient reports redness and erythema that began 2 days ago. HE reports RUE pain and swelling as well. He saw PCP
who marked the borders up to the mid-biceps area and prescribed doxy/Keflex. No improvement over past 48 hours. He called PCP And was instructed to come to ER for IV Abx. Patient denies any fever/chills. No CP or SOB. He does reports LE edema which
is new for him and began 1 day ago. No other complaints.
In ER, US negative. CXR is pending.
Medical History
Past Medical History
Past Medical History: Reports Other (Cancer (Skin CA basal Cell), CHF, GERD, HTN, Hypercholesterolemia, IDDM and Other (Sarcoidosis, Cardiomyopathy, Diverticulitis, ))
Past Surgical History: Reports Other (Cardiac (Heart transplant X 2) and Other (Cardiac transplant))
Social History
Tobacco: Former Smoker
Alcohol: None
Drug: None
Personal: Single
Living: With Family
Family History
Family History: Not pertinent
Allergies / Home Medications
Allergies reflects when Allergies were last updated in [facility].
Home Medications with original date entered in [facility]
Allergy/Medication List:
Allergies
Allergy/AdvReac Type Severity Reaction Status Date / Time
doxycycline Allergy NAUSEA/VOMI Verified 01/10/24 03:22
TING
Home Medications
atorvastatin 40 mg tablet 40 mg PO HS High cholesterol 01/04/10
tacrolimus 1 mg capsule, immediate-release 1 mg PO HS Transplant 01/04/10
aspirin 81 mg tablet,delayed release 81 mg PO DAILY Heart disease/condition 03/03/22
prednisone 5 mg tablet 5 mg PO DAILY inflammation 03/03/22
tamsulosin 0.4 mg capsule 0.4 mg PO HS Urinary issue 03/03/22
clopidogrel 75 mg tablet 75 mg PO DAILY Blood Clot Prevention/Tx 01/10/24
lansoprazole 30 mg capsule,delayed release 30 mg PO DAILY Gastrointestinal Issue 01/10/24
lisinopril 20 mg tablet 20 mg PO DAILY Blood Pressure 01/10/24
vhfmbxdtpusg-rjwoinlt-tccdcx tablet (Multivitamin 50 Plus tablet) 1 tab PO DAILY Supplement 01/10/24
amlodipine 10 mg tablet 10 mg PO DAILY #30 tabs 01/17/24
cephalexin 500 mg capsule 500 mg PO Q6H 04/10/24
doxycycline hyclate 100 mg capsule 100 mg PO DAILY 04/10/24
ibuprofen 800 mg tablet 800 mg PO BIDPRN PRN mild pain 04/10/24
magnesium oxide 500 mg PO HS 04/10/24
metformin 500 mg tablet 500 mg PO BID 04/10/24
oxycodone-acetaminophen 5 mg-325 mg tablet (Percocet) 1 tab PO BID PRN severe pain 04/10/24
tacrolimus 0.5 mg capsule, immediate-release 0.5 mg PO Q12H 04/10/24
Review of Systems
-
A 12 point ROS was completed and negative except as noted: Yes
Physical Exam
Vital Signs
Vital Signs
Temp Pulse Resp BP Pulse Ox
98.1 F 87 18 194/99 99
04/10/24 19:54 04/10/24 19:54 04/10/24 19:54 04/10/24 19:54 04/10/24 19:54
Physical Exam
General: No Apparent Distress
HEENT: NormoCephalic and Anicteric
Respiratory: Clear; No Wheezes or Rales
Cardiac: S1/S2 and Regular Rhythm
Musculoskeletal: Edema, Left Lower Extremity, Edema, Right Lower Extremity and Other (RUE cellulitis extending to shoulder area, edema)
Neuro: AO x 3
Hematologic/Lymphatic: No Lymphadenopathy
Psych: Calm
Laboratory Results
-
04/10/24 20:42
04/10/24 20:42
Laboratory Results
Lactic Acid 1.1 mmol/L (0.7-2.0) 04/10/24 20:42
Total Bilirubin 0.8 mg/dl (0.2-1.3) 04/10/24 20:42
AST 33 U/L (17-59) 04/10/24 20:42
ALT 32 U/L (0-50) 04/10/24 20:42
Alkaline Phosphatase 135 U/L (38-126) H 04/10/24 20:42
Troponin I 0.037 ng/ml H* 04/10/24 20:42
Data Reviewed
-
Ultrasound: Report Reviewed by me and Discussed with Patient
Lab Data: Labs Reviewed by me and Discussed with Patient
Impression/Plan
-
Assessment:
RUE cellulitis
- failing OP Abx (Keflex/Doxy) with symptom progression
- Underlying immunosuppressed state with transplant/DM history
- start Vanco, add Ancef
- check MRSA, blood cultures
- consult ID
- Venous US negative
CATIE
- check urine studies
- bladder scans
- IV Lasix x 1 for overloaded state
- Nephrology consulted
Hx of Cardiac transplant 2000
- continue Prednisone
- continue Tacrolimus; check level in AM
- continue ASA/Plavix
Acute HFpEF
hx of cardiomyopathy
- CXR clear
- BNP 2870 no prior
- IV Lasix x 1 dose tonight; re-dose after AM labs
- monitor I/Os, weights
- DCA cards consulted
non-ischemic Myocardial injury from CATIE, acute CHF
- trend
Hypokalemia
- replete PO K+
HLD
- statin
NIDDM
- Check A1c
- hold Metformin
- SSI
Essential HTN
- hold ALE
- prn Hydralazine
Hx of basal cell skin Ca
GERD
- continue PPI
Sarcoidosis
- on steroids
DVT ppx: SC heparin
Code: Full
[2024-04-10] MEDS: VANCOCIN 200 IV (21:51)
[2024-04-10 22:00] VITALS: BP 181/84
[2024-04-10] MEDS: LASIX 20 MG IV (22:33)
[2024-04-10] MEDS: KCL 40 MEQ PO (22:33)
[2024-04-10] MEDS: PROGRAF 1 MG PO (22:33)
[2024-04-10 23:00] VITALS: BP 177/88
[2024-04-10 23:55] VITALS: BP 158/76; BMI 22.1
[2024-04-11] VITALS (8 sets, daily range): BP systolic 135–197; BP diastolic 59–106; PULSE 67; O2SAT 97; BMI 22.1; BMI 22.0
[2024-04-11 00:39] LABS: Glucose - Point of Care 340 mg/dl (70-99)
[2024-04-11 00:48] LABS: Urine Albumin Trace (Neg - Trace); Urine Bilirubin Negative (Negative); Urine Character Clear (Clear); Urine Color Yellow; Urine Glucose Negative (Negative); Urine Ketone Negative (Negative); Urine Leukocyte Negative (Negative); Urine Nitrite Negative (Negative); Urine Occult Blood Negative (Negative); Urine Urobilinogen Negative (Neg - 1+)
[2024-04-11 00:58] LABS: Urine Sodium 65 mmol/L (30-90)
[2024-04-11] MEDS: ANCEF 5 IV ×2 (00:58→08:13)
[2024-04-11] MEDS: PROGRAF 0.5 MG PO ×3 (00:58→23:24)
[2024-04-11] MEDS: VANCOCIN HCL 500 MG 100 IV ×2 (00:58→12:31)
[2024-04-11] MEDS: FLOMAX 0.400000000000000022 MG PO ×2 (00:58→21:39)
[2024-04-11] MEDS: LIPITOR 40 MG PO ×2 (00:58→21:39)
[2024-04-11] MEDS: NSS 1000 IV (00:59)
[2024-04-11] MEDS: NOVOLOG FLEXPEN 4 UNITS SC (00:59)
--- NOTE | 2024-04-11 01:29 | PTCARENOTE ---
Patient arrived from the ED via stretcher at approximately 2350. Patient pivoted from stretcher to bed x2 assist - gait unsteady. Patient AAOx2, disoriented to time and forgetful. Patient oriented to room. Bed in lowest position. Call summers within
reach.
[2024-04-11 03:17] LABS: Glucose - Point of Care 239 mg/dl (70-99)
[2024-04-11 07:45] LABS: % Basophils 0.9 % (0-2); % Eosinophils 0.2 % (0-6); % Immature Granulocytes 0.8 % (0-0.5); % Lymphocytes 7.6 % (20.5-51.1); % Monocytes 8.4 % (1.7-9.3); % Neutrophils 82.1 % (42.2-75.2); Absolute Basophils 0.1 10^3/uL (0-0.2); Absolute Immature Granulocytes 0.1 10^3/uL (0-0.05); Absolute Lymphocytes 1.1 10^3/uL (1.2-3.4); Absolute Monocytes 1.2 10^3/uL (0.1-0.6); Absolute Neutrophils 11.5 10^3/uL (1.4-6.5); Hematocrit 33.9 % (39.0-52.0); Hemoglobin 11.6 g/dL (13.0-18.0); Mean Corp Hgb Conc. 34.2 g/dL (33.0-37.0); Mean Corpuscular Hgb 29.5 pg (27.0-31.0); Mean Corpuscular Volume 86.3 fL (80.0-94.0); Mean Platelet Volume 10.3 fL (7.4-10.4); Nucleated Red Blood Cells % 0 % (-); Platelet Count 219 10^3/uL (130-400); Red Blood Cell Count 3.93 10^6/uL (4.70-6.10); Red Cell Dist. Width 14.8 % (11.5-14.5)
--- NOTE | 2024-04-11 08:11 | PHA.VAN.IN ---
Assessment
- Assessment
Renal Function: Appears elevated from baseline (SCR 1.3 vs ~0.9 in December 2023, BUN elevated as well)
Concomitant Antimicrobials: cefazolin
Plan
- Plan
Initial / Loading Dose: 1500mg - 1000mg 04/10 21:51 plus 500mg 04/11 00:58
Maintenance Regimen: dosing by level - will give 500mg x1 this afternoon to maintain levels
Monitoring: random 04/12 600
Pharmacokinetics Vancomycin I
- -
Patient Age: 73
Patient Sex: Male
Vancomycin Day #: 1
Indication: Skin And Soft Tissue
Requesting Provider: Dr. Anaya
Pertinent Antimicrobial Allergies:
doxycycline - nausea / vomiting
Height / Weight:
Height 5 ft 8 in
Actual Weight 65.635 kg
Pertinent Past Medical History: cardiac transplant (2000), DM 2
- Vital Signs / Lab Results
Temp Pulse Resp BP Pulse Ox
98.0 F 76 18 166/77 97
04/11/24 07:30 04/11/24 07:30 04/11/24 07:30 04/11/24 07:30 04/11/24 07:30
Lab Results - Hematology
04/10/24 04/11/24
20:42 07:22
WBC 17.4 H 14.0 H
Lab Results - Chemistry
04/10/24
20:42
BUN 53 H
Creatinine 1.5 H
Estimated Creat Clear 43
Albumin 3.0 L
04/10/24
20:42
Lactic Acid 1.1
Lab Results - Urine
04/11/24
00:33
Urine Nitrite (Reflex) Negative
Leukocyte Esterase Rfl Negative
[2024-04-11 08:12] LABS: Glucose - Point of Care 182 mg/dl (70-99)
[2024-04-11 08:12] LABS: Blood Urea Nitrogen 48 mg/dl (9-20); Calcium 8.5 mg/dl (8.4-10.2); Carbon Dioxide 16 mmol/L (22-30); Chloride 111 mmol/L (98-107); Estimated Creatinine Clearance 47 ml/min; Glucose 174 mg/dl (70-99); Magnesium 1.6 mg/dl (1.6-2.3); Potassium 2.9 mmol/L (3.5-5.1); Sodium 137 mmol/L (135-145); eGFR 58.01
[2024-04-11] MEDS: PROTONIX 40 MG PO (08:13)
[2024-04-11] MEDS: DELTASONE 5 MG PO (08:13)
[2024-04-11] MEDS: PLAVIX 75 MG PO (08:13)
[2024-04-11] MEDS: HEPARIN 5000 UNITS SC ×2 (08:13→20:04)
[2024-04-11] MEDS: ASPIR LOW (ENTERIC COATED) 81 MG PO (08:14)
[2024-04-11] MEDS: ULTRAM 50 MG PO ×2 (08:26→21:40)
[2024-04-11 08:49] LABS: Glycohemoglobin (HgbA1c) 8.1 % (4.0-5.6)
[2024-04-11 08:59] LABS: Troponin I 0.043 ng/ml
[2024-04-11] MEDS: NOVOLOG FLEXPEN-LOW RESISTANCE 1 UNITS SC (09:40)
--- NOTE | 2024-04-11 10:21 | CON.ID ---
Consultation
-
Date/Time Consultation Requested: 04/10/2024 2352
Date/Time Consultation Performed: 04/11/2024 10:00
Requesting Provider: Dr. Anaya
Performing Provider: Dr. Khan
Reason for Consultation: Right arm cellulitis
Chief Complaint / Past History
History of Present Illness
Jacek Pantoja is a 73-year-old male being evaluated request of Dr. Anaya regarding right arm cellulitis. History is obtained from chart review, along with patient interview.
The patient has a significant past medical history of cardiac transplant (2000) and has done well in the intervening years. He reports approximately 3 days ago he developed some right hand swelling with pain. He saw his PCP and was prescribed
doxycycline and Keflex. He quickly developed increasing weakness and reports that he subsequently fell out of his electric wheelchair. At this point in time he had taken approximately 1 or 2 doses of the antibiotics. Because of ongoing pain he
presented to the emergency room for further evaluation where initial workup revealed a white count of 17.4.
During this period of time he denies any fevers. He notes pain approximately 6-8 out of 10. He denies any axillary pain or swelling. He notes no other sites of concern on his body. He reports no prior history of similar.
Past History
Additional Past Medical History:
HTN
Dyslipidemia
DM
Sarcoidosis
Diverticulitis
Additional Past Surgical History:
Cardiac transplant x2 (2000; [facility])
Allergy History:
None
Medications Reviewed: Yes
Current Antibiotics:
Cefazolin 1 g IV every 8 hours
Vancomycin (dosed per pharmacy
Social History
Tobacco: Non-Smoker
Alcohol: None
Drug: None
Personal: Single
Living: With Family
Employment: Not Employed
Family History
Family History: Not Pertinent
Review of Systems
Vital Signs
Temp Pulse Resp BP Pulse Ox
98.0 F 76 18 166/77 97
04/11/24 07:30 04/11/24 07:30 04/11/24 07:30 04/11/24 07:30 04/11/24 07:30
Physical Exam
Physical Exam
Constitutional: No Acute Distress, Comfortable, Chronically Ill and Non-toxic
Head: Normocephalic
Eyes: Pupils Equal, Pupils Round, No Conjunctival Hemorrhage and Sclera Anicteric
Oral: No Thrush and No Ulcers
Cardiovascular: Regular Rate and S1/S2; Negative S3/S4
Pulmonary: Clear; Negative Wheezes, Rales or Rhonchi
Gastrointestinal: Soft, Non Tender and Non Distended
Extremities: Edema (RUE), Erythema and Other (Erythema from proximal wrist area to elbow area. Olecranon bursa feels 'boggy'. Generalized tenderness in the forearm area.)
Skin: Warm and Dry; Negative Rash or Jaundice
Wound: Other (Mid forearm wound with appearance of ruptured bullae. ?Honey crusting)
Neurological: Awake, Alert and Oriented
Psychological: Calm
.
Lab / Diagnostic Study Results
04/11/24 07:22
04/11/24 07:22
Abs Immat Gran (auto) 0.1 10^3/uL (0-0.05) H 04/11/24 07:22
Absolute Neuts (auto) 11.5 10^3/uL (1.4-6.5) H 04/11/24 07:22
Absolute Lymphs (auto) 1.1 10^3/uL (1.2-3.4) L 04/11/24 07:22
Absolute Monos (auto) 1.2 10^3/uL (0.1-0.6) H 04/11/24 07:22
Absolute Basos (auto) 0.1 10^3/uL (0-0.2) 04/11/24 07:22
Immature Gran % 0.8 % (0-0.5) H 04/11/24 07:22
Neutrophils % 82.1 % (42.2-75.2) H 04/11/24 07:22
Lymphocytes % 7.6 % (20.5-51.1) L 04/11/24 07:22
Monocytes % 8.4 % (1.7-9.3) 04/11/24 07:22
Eosinophils % 0.2 % (0-6) 04/11/24 07:22
Basophils % 0.9 % (0-2) 04/11/24 07:22
Lactic Acid 1.1 mmol/L (0.7-2.0) 04/10/24 20:42
Microbiology Results
Micro:
04/11/24 00:33 MRSA Screen - Pending
Nose
04/10/24 20:42 Blood Culture - Pending
Blood/Venous
04/10/24 20:42 Blood Culture - Pending
Blood/Venous
Imaging:
04/10/2024 Ultrasound right upper extremity: No sonographic evidence for right upper extremity venous thrombosis noted.
Assessment / Plan
Right upper extremity cellulitis
- Suspect streptococcal given appearance.
Leukocytosis
Hx cardiac transplant
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
HTN
Dyslipidemia
DM
Sarcoidosis
Diverticulitis
Recommendations:
Continue cefazolin. Increase to 2 g IV every 8 hours.
Discontinue vancomycin at present.
Consider Orthopedics evaluation for olecranon bursa aspiration for culture.
Monitor white count and temperature curve.
Follow pending cultures.
Care Review
Plan reviewed with: Physician (Hospitalist)
[2024-04-11 11:08] LABS: Glucose - Point of Care 296 mg/dl (70-99)
--- NOTE | 2024-04-11 12:01 | CON.ORTHO ---
Consultation
-
Date/Time Consultation Requested: Apr 22
Date/Time Consultation Performed: Apr 22
Requesting Provider: Carol
Performing Provider: Rik Pisano
Reason for Consultation: Right elbow septic bursitis
Consultation - Orthopedics
History
Dictation#[id number]
Asked to see this 73-year-old white male with PMH Cancer (Skin CA basal Cell), CHF, GERD, HTN, Hypercholesterolemia, IDDM, Sarcoidosis, Cardiomyopathy with cardiac transplant x 2, Diverticulitis who developed some right hand pain and swelling about
4 to 5 days ago. He initially saw his PCP who placed him on doxycycline and Keflex. He then fell onto his electric wheelchair striking his arm. At that point he had only taken 2 doses of antibiotics and the swelling and pain of his elbow to
forearm and gotten worse. He presented to the emergency room where his WBC was found to be 17.1. He is currently on IV Ancef. Dr. Khan has seen him in consultation and based on the appearance believes it to be a strep infection. currently not
complaining of any constitutional symptoms. Dr. Khan and Dr. Medina has requested an orthopedic consultation for consideration of right elbow bursa aspiration
Allergies / Home Medications
Allergy/AdvReac Type Severity Reaction Status Date / Time
No Known Allergies Allergy Unverified 04/11/24 10:55
�Medication �Instructions �Recorded
atorvastatin 40 mg tablet 40 mg PO HS High cholesterol 01/04/10
tacrolimus 1 mg capsule, 1 mg PO HS Transplant 01/04/10
immediate-release
aspirin 81 mg tablet,delayed 81 mg PO DAILY Heart 03/03/22
release disease/condition
prednisone 5 mg tablet 5 mg PO DAILY inflammation 03/03/22
tamsulosin 0.4 mg capsule 0.4 mg PO HS Urinary issue 03/03/22
clopidogrel 75 mg tablet 75 mg PO DAILY Blood Clot 01/10/24
Prevention/Tx
lansoprazole 30 mg capsule,delayed 30 mg PO DAILY Gastrointestinal 01/10/24
release Issue
lisinopril 20 mg tablet 20 mg PO DAILY Blood Pressure 01/10/24
vdcmrorprhrj-erowkbcs-jbrhwq 1 tab PO DAILY Supplement 01/10/24
tablet (Multivitamin 50 Plus
tablet)
amlodipine 10 mg tablet 10 mg PO DAILY #30 tabs 01/17/24
cephalexin 500 mg capsule 500 mg PO Q6H 04/10/24
doxycycline hyclate 100 mg capsule 100 mg PO DAILY 04/10/24
ibuprofen 800 mg tablet 800 mg PO BIDPRN PRN mild pain 04/10/24
magnesium oxide 500 mg PO HS 04/10/24
metformin 500 mg tablet 500 mg PO BID 04/10/24
oxycodone-acetaminophen 5 mg-325 1 tab PO BID PRN severe pain 04/10/24
mg tablet (Percocet)
tacrolimus 0.5 mg capsule, 0.5 mg PO Q12H 04/10/24
immediate-release
Vital Signs / Lab Results
Temp Pulse Resp BP Pulse Ox
97.8 F 72 14 143/59 96
04/11/24 11:10 04/11/24 11:10 04/11/24 11:10 04/11/24 11:10 04/11/24 11:10
04/11/24 07:22
04/11/24 07:22
Assessment / Plan
PE: Afeb. currently in bed. Right elbow to forearm moderately edematous, most pronounced in the hand. Right elbow without any open wounds. Mild surrounding erythema. Little fluctuance. tender to palpation. Full pain-free range of motion of the
elbow. Open wound over the dorsal forearm. Neurovascularly intact
Diagnostics: None for my review
Impression: Right septic olecranon bursitis
Plan: I discussed at length with the patient regarding his right elbow. I am encouraged that he has full pain-free range of motion. He does have some slight fluctuance to the bursa for which I recommended an aspiration attempt. After obtaining
his verbal consent this was done sterilely with a yield of 6 cc of pus. He tolerated the procedure well. Range of motion of the elbow as tolerated. Will be sending fluid to the lab for GS, C&S, cell count. currently being on IV antibiotics may
cloud the results, however I venture to say, based on the appearance of the fluid, something will grow. This may possibly redirect Dr. Khan's ABX. patient is immunosuppressed and not very healthy. Will continue with nonsurgical treatment for
now. We will follow closely.
--- NOTE | 2024-04-11 12:26 | W.PN.HOSP.TC ---
Addendum entered and electronically signed by Aditya Medina DO 04/11/24 13:45:
I left a voicemail for patient's son to call me back for an update.
Original Note:
Today's Communication/Plan
-
Continue antibiotics
Await cultures
Replete potassium
PT/OT
Assessment / Plan
Assessment / Plan
Gen-AAOx3, NAD
HEENT-NC, AT, anicteric, clear oral mm
Neck-supple
CV-reg, no M, +S1/S2
Lungs-clear B/L
Abd-soft, NT, ND
Ext-right upper extremity edema, erythema, tenderness over the elbow.
Musculoskeletal-no cyanosis, clubbing
Skin-warm and dry
Neuro-grossly non-focal
Psych-calm, cooperative
Right upper extremity skin and soft tissue infection -rule out right elbow olecranon septic bursitis. Continue IV antibiotics per infectious disease. Orthopedics consulted and right elbow olecranon bursa aspirated, 6 cc of purulent fluid removed.
Fluid sent for culture and Gram stain.
Afebrile here, white blood cell count coming down.
Prior to admission, he was on cephalexin and doxycycline prescribed by his primary care doctor without improvement.
Hypokalemia -potassium 2.9 today. Will replete orally. Magnesium 1.6.
Hx heart transplant -on immunosuppression with tacrolimus, prednisone.
Chronic CHF preserved EF -stable.
Essential hypertension -stable.
GERD -on lansoprazole.
Hyperlipidemia -on atorvastatin.
DM2 with hyperglycemia -hemoglobin A1c 8.1%. Glucose 174 this morning. He is on metformin at home. Currently on low resistance NovoLog scale.
Sarcoidosis
Diverticulosis
Functional paraplegia -has not walked in approximately 2 months. Uses a electric wheelchair. Patient does not know why he is not walking. Does have a reported history of spinal stenosis.
Full code
Anticipated Discharge: > 48 hours
Subjective/Interval History
-
Date of Service: April 11, 2024
Patient seen and examined. Complaining of right arm pain and swelling.
Objective Data
-
Labs:
Laboratory Results
04/11/24
07:22
WBC 14.0 H
Hgb 11.6 L
Hct 33.9 L
Plt Count 219
Sodium 137
Potassium 2.9 L
Chloride 111 H
Carbon Dioxide 16 L
BUN 48 H
Creatinine 1.3
Glucose 174 H
Calcium 8.5
Vital Signs:
Vital Signs
Temp Pulse Resp BP Pulse Ox
97.8 F 72 14 143/59 96
04/11/24 11:10 04/11/24 11:10 04/11/24 11:10 04/11/24 11:10 04/11/24 11:10
I&O
04/10/24 04/11/24 04/12/24
06:59 06:59 06:59
Intake Total 820 / 820
Output Total 400 / 400
Balance 420 / 420
Review of Systems
-
History Source: Patient
All other systems: Reviewed and negative
[2024-04-11] MEDS: NOVOLOG FLEXPEN-LOW RESISTANCE 3 UNITS SC ×2 (12:28→16:59)
[2024-04-11] MEDS: KCL 40 MEQ PO (12:29)
[2024-04-11] MEDS: ANCEF 10 IV ×2 (12:30→20:04)
--- NOTE | 2024-04-11 12:57 | CON.CAR ---
Addendum entered and electronically signed by Paresh Willis MD 04/11/24 15:24:
I saw and examined the patient.
The [employer] Supervisor's note was reviewed and I agree with the note.
Comment:
GEN: No distress, awake, Ox3
HEENT: supple, anicteric, mmm
LUNGS: scatt rhonchi
CV: Reg, S1/S2, /6 syst LSB, no gallop
ABD: soft, BS+, NT/ND
EXT: No edema
NEURO: Gross non-focal
SKIN: No rash
Plan:
He has a past medical history of heart transplant x 2 at [facility] in 2000 due to cardiac sarcoidosis, severe peripheral vascular disease, medical noncompliance, hypertension who presents to [facility] with cellulitis of the
right upper extremity and elbow. We are asked to evaluate him for possible congestive heart failure. proBNP is modestly elevated he does appear to have some mild dyspnea on exertion and fatigue. He states he also does have chronic edema.
Will add Lasix 20 mg IV daily and gently diurese. I suspect his edema that was more due to cellulitis, deconditioning, and venous stasis then significant congestive heart failure.
I had a lengthy discussion with him about the importance of compliance with his transplant team at the [facility]. He has had poor compliance with his immunosuppression including his tacrolimus and following his tacrolimus levels.
We will make an appointment for him at [facility] upon discharge. Continue tacrolimus and check level.
Continue aspirin, Plavix, and atorvastatin for his peripheral vascular disease.
Continue antibiotics and local care for his right arm infection.
Original Note:
Consultation
Consultation Request
Date/Time Consultation Requested: 04/10/24 at 2352
Date/Time Consultation Performed: 04/11/24 at 1245
Requesting Provider: Dr. Anaya
Performing Provider: Dr. Willis
Reason for Consultation: h/o heart transplant
Medical History
-
History of Present Illness:
Patient came to [facility] with RUE swelling and was admitted with cellulitis, cardiology has been consulted for acute HF. Patient previously diagnosed with cardiac and pulmonary sarcoid and after following with cardiology locally he eventually
transitioned his care to [place] and had OHT as outlined above. Patient reports following up at [place] every 6 months, but that he has not been seen for the past year due to mobility issues. Patient was seen by Dr. Stover locally for vascular surgery
evaluation 05/13/22 and was recommended B/L femoral endarterectomies with possible B/L iliac stents, but was told that he would need clearance from his transplant team at [place] first. Patient was not able to get an appt to be seen any sooner than
07/13/22 despite vascular surgery team reaching out to [place] transplant team to facilitate care, when this happened the patient stopped following locally for vascular care and transitioned to Dr. Celestin at [place], but according to patient he never had
peripheral revascularization surgery and is now wheelchair bound due to pain and weakness, he reports he has not walked in months. Patient came to [facility] yesterday with increased RUE swelling and generalized weakness resulting in a fall from his
motorized wheelchair 2 days ago. Patient is now admitted with cellulitis and orthopedic surgery service was able to aspirate purulent fluid from his right olecranon bursa. ID is following and suspects Strep so antibiotics have been narrowed to
Ancef. Patient is chronically on tacrolimus and prednisone, tacrolimus level is pending. Cardiology was consulted for possible acute HF. Patient denies SOB or KEENE, but says he is weak. He has edema, but he is not sure if that is acute or chronic.
PMH
PAD with claudication
previously recommended B/L femoral endarterectomies in 2021, but never performed
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
original transplant 01/27/01 and then retransplant 02/13/01 due to original donor having malignant melanoma
Pulmonary and cardiac sarcoid
Chronic immunosuppression
HTN
Hyperlipidemia
Past Medical History
Past Medical History: Other (in HPI)
Past Surgical History: Cardiac (orthoptic heart transplant at [place] 01/27/01, retransplant 02/13/01 due to original donor having malignant melanoma)
Social History
Tobacco: Former Smoker
Alcohol: Occasional (2-4 times a month)
Drug: None
Personal: Single
Living: With Family
Family History
Family History: CAD
Allergies / Home Medications
Allergy/AdvReac Type Severity Reaction Status Date / Time
No Known Allergies Allergy Unverified 04/11/24 10:55
�Medication �Instructions �Recorded �Confirmed �Type
atorvastatin 40 mg tablet 40 mg PO HS High cholesterol 01/04/10 04/10/24 History
tacrolimus 1 mg capsule, 1 mg PO HS Transplant 01/04/10 04/10/24 History
immediate-release
aspirin 81 mg tablet,delayed 81 mg PO DAILY Heart 03/03/22 04/10/24 History
release disease/condition
prednisone 5 mg tablet 5 mg PO DAILY inflammation 03/03/22 04/10/24 History
tamsulosin 0.4 mg capsule 0.4 mg PO HS Urinary issue 03/03/22 04/10/24 History
clopidogrel 75 mg tablet 75 mg PO DAILY Blood Clot 01/10/24 04/10/24 History
Prevention/Tx
lansoprazole 30 mg capsule,delayed 30 mg PO DAILY Gastrointestinal 01/10/24 04/10/24 History
release Issue
lisinopril 20 mg tablet 20 mg PO DAILY Blood Pressure 01/10/24 04/10/24 History
jcsuhydgolwk-kuwiraaf-dfivyo 1 tab PO DAILY Supplement 01/10/24 04/10/24 History
tablet (Multivitamin 50 Plus
tablet)
amlodipine 10 mg tablet 10 mg PO DAILY #30 tabs 01/17/24 Rx
cephalexin 500 mg capsule 500 mg PO Q6H 04/10/24 04/10/24 History
doxycycline hyclate 100 mg capsule 100 mg PO DAILY 04/10/24 04/10/24 History
ibuprofen 800 mg tablet 800 mg PO BIDPRN PRN mild pain 04/10/24 04/10/24 History
magnesium oxide 500 mg PO HS 04/10/24 04/10/24 History
metformin 500 mg tablet 500 mg PO BID 04/10/24 04/10/24 History
oxycodone-acetaminophen 5 mg-325 1 tab PO BID PRN severe pain 04/10/24 04/10/24 History
mg tablet (Percocet)
tacrolimus 0.5 mg capsule, 0.5 mg PO Q12H 04/10/24 04/10/24 History
immediate-release
Review of Systems
-
History Source: Patient
All other systems: Negative unless noted
Physical Exam
Vital Signs
Temp Pulse Resp BP Pulse Ox
97.8 F 72 14 143/59 96
04/11/24 11:10 04/11/24 11:10 04/11/24 11:10 04/11/24 11:10 04/11/24 11:10
GEN: NAD. AAO to person, place and situation
HEENT: EOMI, MMM
LUNGS: CTA B/L with poor inspiratory effort. No wheeze
CV: Reg, S1/S2, no murmur
ABD: soft, BS+, NT/ND
EXT: +1-2 pitting B/L LE edema. Dime sized to quarter sized abrasions B/L LE without drainage or malodor
NEURO: Gross non-focal
SKIN: Warm, dry and pink. No rash
Lab Results
04/11/24 07:22
04/11/24 07:22
Troponin I 0.043 ng/ml H* 04/11/24 08:22
Rff-Q-Vtjtbkszovz Pept 2870 pg/ml 04/10/24 20:42
Impression / Plan
-
PCP: Dr. Norman
Cardiology: Transplant physician at [place] is Dr. Natty Tobias, last seen 01/02/23
Pulm: Dr. Hoffman
Impression:
RUE skin and soft tissue infection
Right olecranon bursa infection
s/p aspiration with purulent fluid 04/11/24
CATIE
Acute HFpEF
PAD with claudication
previously recommended B/L femoral endarterectomies in 2021, but never performed
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
original transplant 01/27/01 and then retransplant 02/13/01 due to original donor having malignant melanoma
Pulmonary and cardiac sarcoid
Chronic immunosuppression
HTN
Hyperlipidemia
Hypokalemia
Elevated Troponin
Echo 01/10/24: EF 58%, mild TR with PAP 49 mmHg
Plan:
-Patient came to [facility] with RUE swelling and was admitted with cellulitis, cardiology has been consulted for acute HF. Patient previously diagnosed with cardiac and pulmonary sarcoid and after following with cardiology locally he eventually
transitioned his care to [place] and had OHT as outlined above. Patient reports following up at [place] every 6 months, but that he has not been seen for the past year due to mobility issues. Patient was seen by Dr. Stover locally for vascular surgery
evaluation 05/13/22 and was recommended B/L femoral endarterectomies with possible B/L iliac stents, but was told that he would need clearance from his transplant team at [place] first. Patient was not able to get an appt to be seen any sooner than
07/13/22 despite vascular surgery team reaching out to [place] transplant team to facilitate care, when this happened the patient stopped following locally for vascular care and transitioned to Dr. Celestin at [place], but according to patient he never had
peripheral revascularization surgery and is now wheelchair bound due to pain and weakness, he reports he has not walked in months. Patient came to [facility] yesterday with increased RUE swelling and generalized weakness resulting in a fall from his
motorized wheelchair 2 days ago. Patient is now admitted with cellulitis and orthopedic surgery service was able to aspirate purulent fluid from his right olecranon bursa. ID is following and suspects Strep so antibiotics have been narrowed to
Ancef. Patient is chronically on tacrolimus and prednisone, tacrolimus level is pending. Cardiology was consulted for possible acute HF. Patient denies SOB or KEENE, but says he is weak. He has edema, but he is not sure if that is acute or chronic.
-pro-BNP 2870 and LE edema. Weight is down and Cre improved with attempts at diuresis last night. Will order another dose of Lasix 20 mg IV now. Patient was not take a diuretic at home.
-Follow up echo study given clinical change.
-Tacrolimus level pending. Will call his transplant team at [place] to try and facilitate follow up, patient reports he has not been seen by [place] since 12/2022.
-Troponin up to 0.043 and a 3rd Troponin is pending for this afternoon. ECG reviewed by me is SR without acute ischemic changes. No chest pain. Will manage as a nonischemic myocardial injury Troponin elevation.
[2024-04-11 14:31] LABS: Body Fluid Granulocytes 98 %; Body Fluid Lymphocytes 2 %
[2024-04-11 14:32] LABS: Body Fluid Second Tech AMA
--- NOTE | 2024-04-11 14:40 | W.PN.UPDATE ---
Update Note
Progress Note Update
Patient was seen today. Agree with orthopedic PA note. Aspiration of olecranon bursa of which we were consulted for only resulted in 6 cc of fluid. However that fluid was purulent. This was sent off for cultures and Gram stain.
Patient is on IV antibiotics as per infectious disease. He had no trauma.
Right upper extremity cellulitis mostly affecting proximal third forearm. Edema of right hand. Complete active range of motion thumb and fingers without pain. No evidence of compartment syndrome. No Current bursal fluid appreciated.
Impression: Cellulitis Right forearm
Plan: Infectious disease to treat patient's cellulitis. I do not see any area in his olecranon bursal region to excise or I&D. Infectious disease will follow Gram stain and culture results and place patient on proper antibiotics. I ordered x-rays
of the right forearm as they were not done upon admission or as an outpatient.
I will be leaving town tomorrow afternoon and will not return until 04/23/2024. Please contact orthopedic surgeon on-call for practice or our PA rounding if you have any additional questions or concerns.
--- NOTE | 2024-04-11 14:49 | W.PN.UPDATE ---
Update Note
Progress Note Update
Called and talked to patient's transplant team at [place], talked with them for 16 minutes. Patient was last seen at their office 05/03/23. He was a no-show for his 02/26/24 office visit. His last tacrolimus level check was 04/05/24 and his level was
undetectable. He is currently scheduled for his annual visit at their clinic 06/17/24 starting with an echo at 0730, then PET/stress at 0900 and finally an office visit at 10:30. If we have any additional concerns regarding transplant then we should
call [phone].
[2024-04-11 15:45] LABS: Troponin I 0.023 ng/ml
--- NOTE | 2024-04-11 16:43 | CM ---
Reviewed medical records. Initial assessment completed with patient whose son lives with him in a 1 story home with no basement and 1 step to enter. Patient has and uses a SPC and RW, No in-home services. COUN[employer] PR[employer] APPRENTICE was independent in ADL's and drove. No
history of psychiatric hospitalizations. S/P heart transplant at [facility]. Pharmacy is [facility] in [place] and PCP is [facility]. Discharge Plan of Care: Therapy recommended HH this afternoon. ? if homebound. Patient is off
floor. Need preferences.
[2024-04-11 16:56] LABS: Glucose - Point of Care 288 mg/dl (70-99)
[2024-04-11] MEDS: LASIX 20 MG IV (16:58)
[2024-04-11] MEDS: APRESOLINE 5 MG IV (20:05)
[2024-04-11] MEDS: KCL 20 MEQ PO (20:05)
--- NOTE | 2024-04-11 20:43 | W.PN.UPDATE ---
Update Note
Progress Note Update
I reviewed x-rays of the right forearm AP and lateral which shows no acute fractures, dislocations or lesions.
[2024-04-11 21:09] LABS: Glucose - Point of Care 228 mg/dl (70-99)
[2024-04-11] MEDS: PROGRAF 1 MG PO (21:40)
[2024-04-12] VITALS (11 sets, daily range): BP systolic 124–190; BP diastolic 61–101; PULSE 84; O2SAT 96; BMI 21.5
[2024-04-12] MEDS: ANCEF 10 IV ×3 (03:52→21:00)
[2024-04-12] MEDS: ULTRAM 50 MG PO ×2 (03:52→23:32)
[2024-04-12] MEDS: APRESOLINE 5 MG IV (03:53)
--- NOTE | 2024-04-12 07:07 | W.PN.UPDATE ---
Documented by User: Isaac Lea PA-C 04/12/24 07:21
Update Note
Progress Note Update
Patient seen and evaluated by orthopedic surgery this morning. He reports that his elbow is feeling a little better in comparison to yesterday. Denies any constitutional symptoms at this time. Patient currently on IV antibiotics as per infectious
disease.
PE: Physical examination of the right upper extremity, with attention to the right forearm and elbow reveals right upper extremity cellulitis mostly affecting the proximal third forearm. There is edema of the right hand. Right elbow without any
open wounds. Open wound over the dorsal forearm. Full range of motion of the right elbow without significant pain. Digital range of motion intact. Mild tenderness to palpation primarily over the proximal forearm region. Neurovascularly intact.
CR Forearm - RIGHT 2 View was obtained at [facility] on 04/11/2024 and was made available for my review today. Findings: No acute fracture or dislocation. The wrist and elbow joint alignments are maintained. Severe osteoarthrosis of the
first carpometacarpal joint with bulky marginal osteophytes. Faint periarticular calcifications about the wrist suggestive of chondrocalcinosis. Small chronic appearing periarticular ossific bodies about the elbow joint. Advanced vascular
calcifications along the ulnar aspect of the mid to distal forearm. Diffuse swelling of the forearm soft tissues, nonspecific. Impression: 1) No radiographic evidence for acute osseous abnormality of the right forearm. 2) Chronic findings, as
above.
Bursa wound culture pending. Preliminary Gram stain revealing many WBCs with few gram-positive cocci.
Blood/venous: Positive cultures in progress - Gram stain of aerobic blood culture bottles revealed gram-positive cocci in clusters.
PLAN:
- Continue with IV antibiotics as per infectious disease.
- Range of motion of the elbow as tolerated.
- Will continue to follow bursa aspirate cultures.
- Will continue with nonsurgical treatment at this time. Orthopedic surgery will continue to follow along.

Documented by User: Kaitlin LewisKatia Pisano DO 04/12/24 19:29
Update Note
Progress Note Update
Patient seen and evaluated by orthopedic surgery this morning. He reports that his elbow is feeling a little better in comparison to yesterday. Denies any constitutional symptoms at this time. Patient currently on IV antibiotics as per infectious
disease.
PE: Physical examination of the right upper extremity, with attention to the right forearm and elbow reveals right upper extremity cellulitis mostly affecting the proximal third forearm. There is edema of the right hand. Right elbow without any
open wounds. Open wound over the dorsal forearm. Full range of motion of the right elbow without significant pain. Digital range of motion intact. Mild tenderness to palpation primarily over the proximal forearm region. Neurovascularly intact.
CR Forearm - RIGHT 2 View was obtained at [facility] on 04/11/2024 and was made available for my review today. Findings: No acute fracture or dislocation. The wrist and elbow joint alignments are maintained. Severe osteoarthrosis of the
first carpometacarpal joint with bulky marginal osteophytes. Faint periarticular calcifications about the wrist suggestive of chondrocalcinosis. Small chronic appearing periarticular ossific bodies about the elbow joint. Advanced vascular
calcifications along the ulnar aspect of the mid to distal forearm. Diffuse swelling of the forearm soft tissues, nonspecific. Impression: 1) No radiographic evidence for acute osseous abnormality of the right forearm. 2) Chronic findings, as
above.
Bursa fluid culture pending. Preliminary Gram stain revealing many WBCs with few gram-positive cocci.
Blood/venous: Positive cultures in progress - Gram stain of aerobic blood culture bottles revealed gram-positive cocci in clusters.
PLAN:
- Continue with IV antibiotics as per infectious disease.
- Range of motion of the elbow as tolerated.
- Will continue to follow bursa aspirate cultures.
- Will continue with nonsurgical treatment at this time. Orthopedic surgery will continue to follow along.
[2024-04-12 07:49] LABS: % Eosinophils 0.4 % (0-6); % Lymphocytes 10.2 % (20.5-51.1); % Monocytes 9.3 % (1.7-9.3); % Neutrophils 78.1 % (42.2-75.2); Absolute Basophils 0.1 10^3/uL (0-0.2); Absolute Immature Granulocytes 0.1 10^3/uL (0-0.05); Absolute Monocytes 0.9 10^3/uL (0.1-0.6); Absolute Neutrophils 7.9 10^3/uL (1.4-6.5); Hematocrit 39.4 % (39.0-52.0); Hemoglobin 13.6 g/dL (13.0-18.0); Mean Corp Hgb Conc. 34.5 g/dL (33.0-37.0); Mean Corpuscular Hgb 29.6 pg (27.0-31.0); Mean Corpuscular Volume 85.7 fL (80.0-94.0); Mean Platelet Volume 9.8 fL (7.4-10.4); Nucleated Red Blood Cells % 0 % (-); Platelet Count 216 10^3/uL (130-400); Red Cell Dist. Width 14.9 % (11.5-14.5); White Blood Cell Count 10.1 10^3/uL (4.8-10.8)
[2024-04-12 08:24] LABS: Glucose - Point of Care 191 mg/dl (70-99)
[2024-04-12 08:25] LABS: Blood Urea Nitrogen 38 mg/dl (9-20); Calcium 9.1 mg/dl (8.4-10.2); Carbon Dioxide 20 mmol/L (22-30); Chloride 106 mmol/L (98-107); Estimated Creatinine Clearance 66 ml/min; Glucose 175 mg/dl (70-99); Magnesium 1.2 mg/dl (1.6-2.3); Potassium 3.4 mmol/L (3.5-5.1); Sodium 138 mmol/L (135-145); eGFR > 60.00
[2024-04-12] MEDS: NOVOLOG FLEXPEN-LOW RESISTANCE 1 UNITS SC (08:36)
[2024-04-12] MEDS: DELTASONE 5 MG PO (08:38)
[2024-04-12] MEDS: KCL 20 MEQ PO ×3 (08:38→21:02)
[2024-04-12] MEDS: PROTONIX 40 MG PO (08:38)
[2024-04-12] MEDS: ASPIR LOW (ENTERIC COATED) 81 MG PO (08:38)
[2024-04-12] MEDS: PLAVIX 75 MG PO (08:38)
[2024-04-12] MEDS: HEPARIN 5000 UNITS SC ×2 (08:39→21:00)
[2024-04-12] MEDS: LASIX 20 MG IV (08:39)
[2024-04-12] MEDS: MAGNESIUM SULFATE 100 IV (09:06)
[2024-04-12] MEDS: ZESTRIL 20 MG PO (09:07)
--- NOTE | 2024-04-12 11:00 | W.PN.HOSP.TC ---
Addendum entered and electronically signed by Aditya Medina DO 04/12/24 12:16:
Sepsis due to right upper extremity cellulitis/olecranon bursitis -complicated by uncontrolled diabetes and immunosuppression.
Original Note:
Today's Communication/Plan
-
Add insulin, basal bolus
Await cultures
Continue antibiotics
PT/OT
Assessment / Plan
Assessment / Plan
Gen-AAOx3, NAD
HEENT-NC, AT, anicteric, clear oral mm
Neck-supple
CV-reg, no M, +S1/S2
Lungs-clear B/L
Abd-soft, NT, ND
Ext-right upper extremity edema, erythema, tenderness over the elbow.
Musculoskeletal-no cyanosis, clubbing
Skin-warm and dry
Neuro-grossly non-focal
Psych-calm, cooperative
Right upper extremity skin and soft tissue infection -rule out right elbow olecranon septic bursitis. Orthopedics consulted and right elbow olecranon bursa aspirated, 6 cc of purulent fluid removed. Blood cultures and fluid cultures positive for
Staph aureus, anticipate MSSA. Discussed with infectious disease. Continue IV Ancef.
Afebrile here, white blood cell count now normal.
Prior to admission, he was on cephalexin and doxycycline prescribed by his primary care doctor without improvement.
CATIE -present on admission. Suspect due to volume depletion. CATIE resolved with IV fluid administration.
Hypokalemia -potassium improving, continue repletion.
Hypomagnesemia -will replete intravenously.
Acute nonischemic myocardial injury -troponin trending down. Etiology likely due to infection, acute illness.
Hx heart transplant -on immunosuppression with tacrolimus, prednisone. Noncompliance noted by cardiology.
Chronic CHF preserved EF -stable.
Essential hypertension -stable.
GERD -on lansoprazole.
Hyperlipidemia -on atorvastatin.
DM2 with hyperglycemia -hemoglobin A1c 8.1%. Glucose 175 this morning, daytime glucoses as high as 296. He is on metformin at home. Currently on low resistance NovoLog scale. Add Lantus 8 units at bedtime, NovoLog 5 units AC. Discussed
importance of glucose control with patient. He seems to have very poor insight.
Sarcoidosis
Diverticulosis
Functional paraplegia -has not walked in approximately 2 months. Uses a electric wheelchair. Patient does not know why he is not walking. Does have a reported history of spinal stenosis.
Full code
Anticipated Discharge: > 48 hours
Subjective/Interval History
-
Date of Service: April 12, 2024
Patient seen and examined. Feeling better, less arm pain today.
Objective Data
-
Labs:
Laboratory Results
04/12/24
07:12
WBC 10.1
Hgb 13.6
Hct 39.4
Plt Count 216
Sodium 138
Potassium 3.4 L
Chloride 106
Carbon Dioxide 20 L
BUN 38 H
Creatinine 0.9
Glucose 175 H
Calcium 9.1
Vital Signs:
Vital Signs
Temp Pulse Resp BP Pulse Ox
98.6 F 101 14 173/95 99
04/12/24 07:20 04/12/24 09:07 04/12/24 07:20 04/12/24 09:07 04/12/24 07:20
I&O
04/11/24 04/12/24 04/13/24
06:59 06:59 06:59
Intake Total 2200 / 2200
Output Total 2900 / 2900
Balance -700 / -700
Review of Systems
-
History Source: Patient
All other systems: Reviewed and negative
--- NOTE | 2024-04-12 11:01 | PN.CDI ---
CDI
- -
CDI:
Physician Documentation Request
Admit Date: 04/10/24 22:14
Dear Doctor Carol,
Please review the following and provide your response in the progress notes.
Clinical Indicators:
H+P, 04/10
#RUE cellulitis
#- failing OP Abx (Keflex/Doxy) with symptom progression
#- Underlying immunosuppressed state with transplant/DM history
#-CATIE
PN, 04/11
#Right upper extremity skin and soft tissue infection
#...-rule out right elbow olecranon septic bursitis.
Initial VS:
98.1 90 18 194/99 99%
04/10/24 20:42 Blood Culture - Preliminary
Blood/Venous Gram Stain - Preliminary
Positive culture in progress
Laboratory Tests
04/10/24 04/11/24 04/12/24
20:42 07:22 07:12
WBC 17.4 H 14.0 H 10.1
Laboratory Tests
04/10/24 04/11/24 04/12/24
20:42 07:22 07:12
Creatinine 1.5 H 1.3 0.9
Please clarify which of the following most accurately describes the status of the patient's infection:
Sepsis/Severe Sepsis, POA
Atypical sepsis, (immunosuppressed state), POA
Localized Infection Only, without systemic illness
- indicate the site/source, such as UTI, pneumonia etc.
Other(please specify)
Sepsis
- Systemic manifestations of infection, with 2 or more SIRS criteria which include:
- Fever >100.4 degrees F or hypothermia < 96.8 degrees F
- Leukocytosis - WBC > 12,000 or leukopenia - WBC < 4,000 or > 10% bands
- Tachycardia > 90 beats per minute
- Tachypnea - RR > 20 breaths per minute or PaCO2 , 32mmHg
Source: Merck Manual 2013
- Indicate the known or suspected underlying infection, such as UTI, pneumonia or cellulitis
Severe Sepsis
- Sepsis with associated acute organ dysfunction, such as renal or respiratory failure
- Documentation should indicate the association between the sepsis and the organ dysfunction
Use of terms such as suspected, likely, concern for, or probable (associated with a specific diagnosis that is being evaluated, monitored, or treated as if it exists) are acceptable and can be coded in the inpatient setting, when documented at the
time of discharge.
Thank you,
Catrachita Michael RN BSN CCDS
CDI Specialist
please contact via tiger text
Please use your independent medical judgment in providing your response.
--- NOTE | 2024-04-12 11:15 | PN.CDI ---
CDI
- -
CDI:
Physician Documentation Request
Admit Date: 04/10/24 22:14
Dear Doctor Carol,
Please review the following and provide your response in the progress notes.
Clinical Indicators:
H+P, 04/10
#RUE cellulitis
#- failing OP Abx (Keflex/Doxy) with symptom progression
#- Underlying immunosuppressed state with transplant/DM history
PN, 04/11
#Right upper extremity skin and soft tissue infection
#...-rule out right elbow olecranon septic bursitis.
#...Continue IV antibiotics per infectious disease.
Laboratory Tests
04/10/24 04/11/24 04/12/24
20:42 07:22 07:12
Glucose 181 H 174 H 175 H
Laboratory Tests
04/11/24
07:22
Hemoglobin A1c 8.1 H
Please clarify the relationship, if any, between these conditions:
Multifactorial, RUE cellulitis/Right elbow septic bursitis is enhanced/associated with/due to Diabetes/Immunosuppressed state.
RUE cellulitis/Right elbow septic bursitis is not enhanced/associated with/due to Diabetes/Immunosuppressed state but it is due to ___. (Please specify)
Other(please specify)
Use of terms such as suspected, likely, concern for, or probable (associated with a specific diagnosis that is being evaluated, monitored, or treated as if it exists) are acceptable and can be coded in the inpatient setting, when documented at the
time of discharge.
Thank you,
Catrachita Michael RN BSN CCDS
CDI Specialist
please contact via tiger text
Please use your independent medical judgment in providing your response.
--- NOTE | 2024-04-12 11:22 | W.PN.ID1 ---
Date of Service
Date of Service: April 12, 2024
Today's Communication
Continue cefazolin. Repeat blood cultures.
Assessment / Plan
Right upper extremity cellulitis
Right olecranon bursitis 2* MSSA
Leukocytosis
Hx cardiac transplant
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
HTN
Dyslipidemia
DM
Sarcoidosis
Diverticulitis
Recommendations:
Continue cefazolin 2 g IV every 8 hours.
Repeat blood cultures to assess clearance.
Monitor white count and temperature curve.
Follow pending cultures.
May consider serial aspirations of the bursa area to decrease overall bioburden and allow for better antibiotic penetration.
����������������������������������������������������������
Chief Complaint
-: Cellulitis and Bacteremia
Subjective / Review of Systems
Review of Systems: No Fever and No Chills
Vital Signs / Physical Exam
Vital Signs
Vital Signs
Temp Pulse Resp BP Pulse Ox
98.6 F 101 14 173/95 99
04/12/24 07:20 04/12/24 09:07 04/12/24 07:20 04/12/24 09:07 04/12/24 07:20
Physical Exam
Constitutional: No Acute Distress, Comfortable, Chronically Ill and Non-toxic
Eyes: No Conjunctival Hemorrhage and Sclera Anicteric
Cardiovascular: S1/S2; Negative S3/S4 or Murmur
Pulmonary: Clear; Negative Wheezes or Rales
Gastrointestinal: Soft, Non Tender and Non Distended
Musculoskeletal: Other (right arm with erythema / edema. Olecranon bursa area with boggy consistency.)
Skin: Warm and Dry
Neurological: Awake and Alert
Psychological: Calm
Objective Data
Lab Data
Lab Results
04/12/24 07:12
04/12/24 07:12
Estimated Creat Clear 66 ml/min 04/12/24 07:12
Lactic Acid 1.1 mmol/L (0.7-2.0) 04/10/24 20:42
Total Bilirubin 0.8 mg/dl (0.2-1.3) 04/10/24 20:42
AST 33 U/L (17-59) 04/10/24 20:42
ALT 32 U/L (0-50) 04/10/24 20:42
Alkaline Phosphatase 135 U/L (38-126) H 04/10/24 20:42
Most recent labs reviewed.
Micro Results:
04/11/24 00:33 MRSA Screen - Final
Nose No Methicillin Resistant Staphylococcus aureus isolated.
04/11/24 12:17 Wound Culture - Preliminary
Bursa Staphylococcus aureus (PBP2a negative)
Gram Stain - Preliminary
04/10/24 20:42 Blood Culture - Preliminary
Blood/Venous Positive culture in progress - GPC clusters
Gram Stain - Preliminary
04/10/24 20:42 Blood Culture - Preliminary
Blood/Venous Positive culture in progress - GPC clusters
Gram Stain - Preliminary
Imaging:
04/10/2024 Ultrasound right upper extremity: No sonographic evidence for right upper extremity venous thrombosis noted.
Care Review
Plan reviewed with: Physician (Hospitalist; Ortho)
[2024-04-12 12:18] LABS: Glucose - Point of Care 238 mg/dl (70-99)
[2024-04-12] MEDS: NOVOLOG FLEXPEN-LOW RESISTANCE 2 UNITS SC ×2 (12:25→17:40)
[2024-04-12] MEDS: NOVOLOG FLEXPEN 5 UNITS SC ×2 (12:25→17:39)
[2024-04-12] MEDS: PROGRAF 0.5 MG PO ×2 (12:26→23:11)
--- NOTE | 2024-04-12 12:51 | CM ---
I met with Estuardo this afternoon to discuss discharge needs. In addition to SPC and RW, he also has an electric wheelchair which he said is easy to get used to, but also reduces his strength. PT recommends Home PT. Estuardo has previously had
[facility] for home care services and would like same again at discharge. Referral made in [facility].
Pharmacy:[facility] in [place]
PCP: [facility]
[2024-04-12] MEDS: SENOKOT-S 1 TABLET PO (13:37)
[2024-04-12] MEDS: MIRALAX 17 GRAMS PO (13:37)
[2024-04-12] MEDS: GLUCOPHAGE 500 MG PO (16:08)
[2024-04-12 17:12] LABS: Glucose - Point of Care 358 mg/dl (70-99)
[2024-04-12 17:21] LABS: Glucose - Point of Care 232 mg/dl (70-99)
--- NOTE | 2024-04-12 19:39 | W.PN.CARDCBS ---
Today's Communication / Plan
-
Replete electrolytes
Continue IV Lasix another 24-48 hours
Monitor telemetry
Impression / Plan
-
PCP: Dr. Norman
Cardiology: Transplant physician at [facility] is Dr. Natty Tobias, last seen 01/02/23
Pulm: Dr. Hoffman
Impression:
RUE skin and soft tissue infection
Right olecranon bursa infection
s/p aspiration with purulent fluid 04/11/24
CATIE
Acute HFpEF
PAD with claudication
previously recommended B/L femoral endarterectomies in 2021, but never performed
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
original transplant 01/27/01 and then retransplant 02/13/01 due to original donor having malignant melanoma
Pulmonary and cardiac sarcoid
Chronic immunosuppression
HTN
Hyperlipidemia
Hypokalemia
Elevated Troponin
Echo 01/10/24: EF 58%, mild TR with PAP 49 mmHg
Echo 04/12/24: Normal left ventricular systolic function. Estimated Left ventricular ejection fraction is 55-60% by Holloway's method.Mild tricuspid regurgitation. Estimated pulmonary artery systolic pressure of 52 mmHg, assuming a right atrial
pressure of 3mmHg.
Plan:
He has a past medical history of heart transplant x 2 at [facility] in 2000 due to cardiac sarcoidosis, severe peripheral vascular disease, medical noncompliance, hypertension who presents to [facility] with cellulitis of
the right upper extremity and elbow. We are asked to evaluate him for possible congestive heart failure. He states he also does have chronic edema.He has not on outpatient diuretics.
-proBNP Elevated at 2870
-Volume status appears better although still edematous
-Will continue IV Lasix another 24-48 hours
-Replete potassium for K greater than 4. Replete magnesium for mag greater than 2. Supplementation orders already placed by primary team
-Repeat echocardiogram with preserved LV systolic function and no significant valve pathology with stable pulmonary hypertension
-Tacrolimus level pending. Will call his transplant team at [facility] to try and facilitate follow up, patient reports he has not been seen by [facility] since 12/2022.
-Peak troponin 0.043. No chest pain. Will manage as a nonischemic myocardial injury Troponin elevation.
Right upper extremity cellulitis/olecranon bursitis complicated by uncontrolled diabetes immunosuppression.
-Blood cultures and wound culture positive for Staph aureus, Gram stain pending. Repeat blood cultures pending.
-IV antibiotics per ID.
Will follow with
Progress Note - Historical Site Guide
Subjective
Date of Service: April 12, 2024
Seen and examined. Patient denying chest pain, shortness of breath at rest or palpitations.
Objective
Labs:
04/12/24 07:12
04/12/24 07:12
Labs
Hgb 13.6 g/dL (13.0-18.0) 04/12/24 07:12
Hct 39.4 % (39.0-52.0) 04/12/24 07:12
Plt Count 216 10^3/uL (130-400) 04/12/24 07:12
Sodium 138 mmol/L (135-145) 04/12/24 07:12
Potassium 3.4 mmol/L (3.5-5.1) L 04/12/24 07:12
BUN 38 mg/dl (9-20) H 04/12/24 07:12
Creatinine 0.9 mg/dL (0.7-1.3) 04/12/24 07:12
Glucose 175 mg/dl (70-99) H 04/12/24 07:12
Troponins
04/10/24 04/11/24 04/11/24
20:42 07:22 08:22
Troponin I 0.037 H* Cancelled 0.043 H*
04/11/24
14:56
Troponin I 0.023 D
Vital Signs and I&O:
Vital Signs
Temp Pulse Resp BP Pulse Ox
97.4 F 94 14 124/70 99
04/12/24 15:38 04/12/24 15:38 04/12/24 15:38 04/12/24 15:38 04/12/24 15:38
Vital Signs
Temp Pulse Resp BP Pulse Ox
97.4 F 94 14 124/70 99
04/12/24 15:38 04/12/24 15:38 04/12/24 15:38 04/12/24 15:38 04/12/24 15:38
Intake & Output
04/10/24 04/11/24 04/12/24 04/13/24
06:59 06:59 06:59 06:59
Intake Total 2200 / 2200 840 / 840
Output Total 2900 / 2900 920 / 920
Balance -700 / -700 -80 / -80
Physical Exam
Physical Exam
General: No acute distress. Appears older than stated age.
Heart: Regular, positive S1/S2, No murmur
Lungs: Bronchovesicular breath sounds clear bilaterally
Abd: Positive BS, NT/ND, neg rebound/rigidity/guarding
Ext: + edema LE. Right upper extremity edematous and erythematous
[2024-04-12] MEDS: LIPITOR 40 MG PO (21:02)
[2024-04-12] MEDS: FLOMAX 0.400000000000000022 MG PO (21:02)
[2024-04-12] MEDS: PROGRAF 1 MG PO (21:02)
[2024-04-12 21:57] LABS: Glucose - Point of Care 240 mg/dl (70-99)
[2024-04-12] MEDS: LANTUS 0.0800000000000000017 UNITS SC (22:28)
[2024-04-13 00:27] VITALS: BP 169/88
[2024-04-13] MEDS: ANCEF 10 IV ×3 (03:31→20:05)
[2024-04-13 03:48] VITALS: BP 149/79
[2024-04-13 05:38] VITALS: BMI 21.2
[2024-04-13 07:20] VITALS: BP 124/67
[2024-04-13 07:37] LABS: Glucose - Point of Care 169 mg/dl (70-99)
[2024-04-13] MEDS: NOVOLOG FLEXPEN 5 UNITS SC (08:19)
[2024-04-13] MEDS: PROTONIX 40 MG PO (08:20)
[2024-04-13] MEDS: NOVOLOG FLEXPEN-LOW RESISTANCE 1 UNITS SC ×2 (08:20→17:28)
[2024-04-13] MEDS: KCL 20 MEQ PO ×3 (08:21→21:48)
[2024-04-13] MEDS: HEPARIN 5000 UNITS SC ×2 (08:21→20:05)
[2024-04-13] MEDS: GLUCOPHAGE 500 MG PO ×2 (08:21→16:26)
[2024-04-13] MEDS: ASPIR LOW (ENTERIC COATED) 81 MG PO (08:21)
[2024-04-13] MEDS: ZESTRIL 20 MG PO (08:21)
[2024-04-13] MEDS: DELTASONE 5 MG PO (08:21)
[2024-04-13] MEDS: PLAVIX 75 MG PO (08:21)
[2024-04-13] MEDS: LASIX 20 MG IV (08:22)
[2024-04-13 09:11] LABS: Blood Urea Nitrogen 34 mg/dl (9-20); Calcium 8.7 mg/dl (8.4-10.2); Carbon Dioxide 20 mmol/L (22-30); Chloride 106 mmol/L (98-107); Estimated Creatinine Clearance 53 ml/min; Glucose 276 mg/dl (70-99); Magnesium 1.8 mg/dl (1.6-2.3); Potassium 4.1 mmol/L (3.5-5.1); Sodium 135 mmol/L (135-145); eGFR > 60.00
--- NOTE | 2024-04-13 10:18 | W.PN.ID1 ---
Date of Service
Date of Service: April 13, 2024
Today's Communication
Continue with cefazolin. Follow pending blood cultures.
Assessment / Plan
Right upper extremity cellulitis
Right olecranon bursitis 2* MSSA
Leukocytosis
Hx cardiac transplant
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
HTN
Dyslipidemia
DM
Sarcoidosis
Diverticulitis
Recommendations:
Continue cefazolin 2 g IV every 8 hours.
Currently following repeat blood cultures to assess clearance.
Monitor white count and temperature curve.
����������������������������������������������������������
Chief Complaint
-: Cellulitis and Bacteremia
Subjective / Review of Systems
Patient seen and examined. Notes some mild decrease in overall swelling of right upper extremity. No fevers or chills.
Review of Systems: No Fever and No Chills
Vital Signs / Physical Exam
Vital Signs
Vital Signs
Temp Pulse Resp BP Pulse Ox
97.7 F 82 18 124/67 97
04/13/24 07:20 04/13/24 08:22 04/13/24 07:20 04/13/24 08:22 04/13/24 07:20
Physical Exam
Constitutional: No Acute Distress, Comfortable, Chronically Ill and Non-toxic
Eyes: No Conjunctival Hemorrhage and Sclera Anicteric
Cardiovascular: S1/S2; Negative S3/S4 or Murmur
Pulmonary: Clear; Negative Wheezes or Rales
Gastrointestinal: Soft, Non Tender and Non Distended
Musculoskeletal: Other (right arm with erythema / edema. Olecranon bursa area with boggy consistency, although decreased on today's exam.)
Skin: Warm and Dry
Neurological: Awake and Alert
Psychological: Calm
Objective Data
Lab Data
Lab Results
04/12/24 07:12
04/13/24 08:42
Estimated Creat Clear 53 ml/min 04/13/24 08:42
Lactic Acid 1.1 mmol/L (0.7-2.0) 04/10/24 20:42
Total Bilirubin 0.8 mg/dl (0.2-1.3) 04/10/24 20:42
AST 33 U/L (17-59) 04/10/24 20:42
ALT 32 U/L (0-50) 04/10/24 20:42
Alkaline Phosphatase 135 U/L (38-126) H 04/10/24 20:42
Most recent labs reviewed.
Micro Results:
04/10/24 20:42 Blood Culture - Preliminary
Blood/Venous S aureus-Methicillin Sensitive
Gram Stain - Preliminary
04/10/24 20:42 Blood Culture - Preliminary
Blood/Venous S aureus-Methicillin Sensitive
Gram Stain - Preliminary
04/11/24 12:17 Wound Culture - Final
Bursa S aureus-Methicillin Sensitive
Gram Stain - Final
04/12/24 11:49 Blood Culture - Pending
Blood/Venous
04/12/24 11:20 Blood Culture - Pending
Blood/Venous
04/11/24 00:33 MRSA Screen - Final
Nose No Methicillin Resistant Staphylococcus aureus isolated.
Imaging:
04/12/2024 ECHO (TTE): EF approximately 55%. Mildly dilated left atrium. Mild tricuspid regurgitation. No intracardiac mass or thrombus formation seen. Please see full dictation for additional detail.
04/10/2024 Ultrasound right upper extremity: No sonographic evidence for right upper extremity venous thrombosis noted.
Care Review
Plan reviewed with: Physician (Hospitalist)
--- NOTE | 2024-04-13 10:53 | W.PN.CARDCBS ---
Addendum entered and electronically signed by Aden De La Torre MD 04/13/24 11:55:
He offers no complaints. Denies CP and SOB
RRR, Nl S1 and S2, no S3 or S4
Lungs CTA b/l
R UE cellulitis/bursitis
LE EXT: +1-2 pitting B/L LE edema
Unlikely intravascular volume overloaded and with diuresis BUN/Creat has bumped.
Stopping diuretic
Abx as per primary team
On maintenance tacrolimus dosing and Tacrolimus level on 04/11/24 was 6.2.
Follow renal function
Original Note:
Today's Communication / Plan
-
Cre trending back up, is 1.1 today. Will stop Lasix
Suspect LE edema is multifactorial
Impression / Plan
-
PCP: Dr. Norman
Cardiology: Transplant physician at [facility] is Dr. Natty Tobias, last seen 01/02/23, transplant center # to call with questions/concerns is [phone]
Pulm: Dr. Hoffman
Impression:
RUE skin and soft tissue infection
Right olecranon bursa infection
s/p aspiration with purulent fluid 04/11/24
CATIE
Acute HFpEF
PAD with claudication
previously recommended B/L femoral endarterectomies in 2021, but never performed
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
original transplant 01/27/01 and then retransplant 02/13/01 due to original donor having malignant melanoma
Pulmonary and cardiac sarcoid
Chronic immunosuppression
HTN
Hyperlipidemia
Hypokalemia
Elevated Troponin
Echo 01/10/24: EF 58%, mild TR with PAP 49 mmHg
Echo 04/12/24: Normal left ventricular systolic function. Estimated Left ventricular ejection fraction is 55-60% by Holloway's method.Mild tricuspid regurgitation. Estimated pulmonary artery systolic pressure of 52 mmHg, assuming a right atrial
pressure of 3mmHg.
Plan:
-Weight is down 6 lbs with Lasix 20 mg IV daily. No reported symptomatic change/improvement from patient. No h/o CHF and patient was not taking a diuretic prior to admission.
-Suspect edema is multifactorial including low albumin
-Cre up to 1.1 on 04/13/24. Will stop Lasix IV on 04/13/24. Not sure there is a role for daily Lasix PO.
-Called and talked to patient's transplant center at [facility] on 04/11/24. Patient received heart transplant at [facility] for cardiac sarcoid on 01/27/01 and then retransplant 02/13/01 due to original donor having malignant melanoma. Patient was last seen at
[facility] 05/03/23. He was a no-show for his 02/26/24 office visit. His last outpatient tacrolimus level check was 04/05/24 and his level was undetectable. He is currently scheduled for his annual visit at their clinic 06/17/24 starting with an echo at 0730,
then PET/stress at 0900 and finally an office visit at 1030. If we have any additional concerns regarding transplant then we should call [phone].
-Tacrolimus level on 04/11/24 was 6.2.
-Peak troponin 0.043. No chest pain. Will manage as a nonischemic myocardial injury Troponin elevation.
HPI: Patient came to [facility] with RUE swelling and was admitted with cellulitis, cardiology has been consulted for acute HF. Patient previously diagnosed with cardiac and pulmonary sarcoid and after following with cardiology locally he eventually
transitioned his care to [facility] and had OHT as outlined above. Patient reports following up at [facility] every 6 months, but that he has not been seen for the past year due to mobility issues. Patient was seen by Dr. Stover locally for vascular surgery
evaluation 05/13/22 and was recommended B/L femoral endarterectomies with possible B/L iliac stents, but was told that he would need clearance from his transplant team at [facility] first. Patient was not able to get an appt to be seen any sooner than
07/13/22 despite vascular surgery team reaching out to [facility] transplant team to facilitate care, when this happened the patient stopped following locally for vascular care and transitioned to Dr. Celestin at [facility], but according to patient he never had
peripheral revascularization surgery and is now wheelchair bound due to pain and weakness, he reports he has not walked in months. Patient came to [facility] yesterday with increased RUE swelling and generalized weakness resulting in a fall from his
motorized wheelchair 2 days ago. Patient is now admitted with cellulitis and orthopedic surgery service was able to aspirate purulent fluid from his right olecranon bursa. ID is following and suspects Strep so antibiotics have been narrowed to
Ancef. Patient is chronically on tacrolimus and prednisone, tacrolimus level is pending. Cardiology was consulted for possible acute HF. Patient denies SOB or KEENE, but says he is weak. He has edema, but he is not sure if that is acute or chronic.
Progress Note - Varnish [employer]ter Helper
Subjective
Date of Service: April 13, 2024
He thinks RUE cellulitis is better, he feels no different with IV diuresis
Objective
Labs:
04/12/24 07:12
04/13/24 08:42
Labs
Hgb 13.6 g/dL (13.0-18.0) 04/12/24 07:12
Hct 39.4 % (39.0-52.0) 04/12/24 07:12
Plt Count 216 10^3/uL (130-400) 04/12/24 07:12
Sodium 135 mmol/L (135-145) 04/13/24 08:42
Potassium 4.1 mmol/L (3.5-5.1) 04/13/24 08:42
BUN 34 mg/dl (9-20) H 04/13/24 08:42
Creatinine 1.1 mg/dL (0.7-1.3) 04/13/24 08:42
Glucose 276 mg/dl (70-99) H 04/13/24 08:42
Troponins
04/10/24 04/11/2404/11/24
20:42 07:22 08:22
Troponin I 0.037 H* Cancelled 0.043 H*
04/11/24
14:56
Troponin I 0.023 D
Vital Signs and I&O:
Vital Signs
Temp Pulse Resp BP Pulse Ox
97.7 F 82 18 124/67 97
04/13/24 07:20 04/13/24 08:22 04/13/24 07:20 04/13/24 08:22 04/13/24 07:20
Vital Signs
Temp Pulse Resp BP Pulse Ox
97.7 F 82 18 124/67 97
04/13/24 07:20 04/13/24 08:22 04/13/24 07:20 04/13/24 08:22 04/13/24 07:20
Intake & Output
04/11/24 04/12/24 04/13/24 04/14/24
06:59 06:59 06:59 06:59
Intake Total 2200 / 2200 1560 / 1560
Output Total 2900 / 2900 1645 / 1645
Balance -700 / -700 -85 / -85
Physical Exam
Physical Exam
GEN: NAD. AAO to person, place and situation
HEENT: EOMI, MMM
LUNGS: No audible wheeze
CV: SR on tele
ABD: ND
EXT: +1-2 pitting B/L LE edema
NEURO: Gross non-focal
SKIN: No rash
[2024-04-13 11:10] VITALS: BP 132/73
[2024-04-13 11:17] LABS: Glucose - Point of Care 206 mg/dl (70-99)
--- NOTE | 2024-04-13 11:24 | W.PN.HOSP.TC ---
Today's Communication/Plan
-
Continue antibiotics
Assessment / Plan
Assessment / Plan
Gen-AAOx3, NAD
HEENT-NC, AT, anicteric, clear oral mm
Neck-supple
CV-reg, no M, +S1/S2
Lungs-clear B/L
Abd-soft, NT, ND
Ext-right upper extremity edema, erythema, tenderness over the elbow.
Musculoskeletal-no cyanosis, clubbing
Skin-warm and dry
Neuro-grossly non-focal
Psych-calm, cooperative
MSSA sepsis due to right upper extremity skin and soft tissue infection -rule out right elbow olecranon septic bursitis. Orthopedics consulted and right elbow olecranon bursa aspirated, 6 cc of purulent fluid removed. Blood and fluid cultures
positive for MSSA. Discussed with infectious disease. Continue IV Ancef. Transthoracic echocardiogram done 04/12 without significant changes compared to previous. LVEF 55 to 60%.
Afebrile here, white blood cell count now normal.
Prior to admission, he was on cephalexin and doxycycline prescribed by his primary care doctor without improvement.
CATIE -present on admission. Suspect due to volume depletion. CATIE resolved with IV fluid administration.
Hypokalemia -resolved.
Hypomagnesemia -resolved.
Acute nonischemic myocardial injury -troponin trending down. Etiology likely due to infection, acute illness.
Hx heart transplant -on immunosuppression with tacrolimus, prednisone. Noncompliance noted by cardiology.
Chronic CHF preserved EF -stable.
Essential hypertension -stable.
GERD -on lansoprazole.
Hyperlipidemia -on atorvastatin.
DM2 with hyperglycemia -hemoglobin A1c 8.1%. Glucose 276 this morning, daytime glucoses as high as 296. He is on metformin at home. Currently on low resistance NovoLog scale. Increase Lantus to 10 units at bedtime, NovoLog 8 units AC, continue
corrective scale. Continue metformin.
Sarcoidosis
Diverticulosis
Functional paraparesis -reportedly has not walked in approximately 2 months. Uses a electric wheelchair. Patient does not know why he is not walking. Does have a reported history of spinal stenosis. Physical therapy was able to ambulate patient
room distance with use of rolling walker. Gait was fairly steady with rolling walker and he was asymptomatic.
Full code
Anticipated Discharge: > 48 hours
Subjective/Interval History
-
Date of Service: April 13, 2024
Patient seen and examined. No complaints.
Objective Data
-
Labs:
Laboratory Results
04/13/24
08:42
Sodium 135
Potassium 4.1
Chloride 106
Carbon Dioxide 20 L
BUN 34 H
Creatinine 1.1
Glucose 276 H
Calcium 8.7
Vital Signs:
Vital Signs
Temp Pulse Resp BP Pulse Ox
97.7 F 82 18 124/67 97
04/13/24 07:20 04/13/24 08:22 04/13/24 07:20 04/13/24 08:22 04/13/24 07:20
I&O
04/12/24 04/13/24 04/14/24
06:59 06:59 06:59
Intake Total 2200 / 2200 1560 / 1560
Output Total 2900 / 2900 1645 / 1645
Balance -700 / -700 -85 / -85
Review of Systems
-
History Source: Patient
All other systems: Reviewed and negative
[2024-04-13] MEDS: NOVOLOG FLEXPEN 8 UNITS SC ×2 (11:55→17:27)
[2024-04-13] MEDS: PROGRAF 0.5 MG PO ×2 (11:55→23:13)
[2024-04-13] MEDS: NOVOLOG FLEXPEN-LOW RESISTANCE 2 UNITS SC (11:56)
[2024-04-13] MEDS: ULTRAM 50 MG PO (13:58)
--- NOTE | 2024-04-13 14:42 | W.PN.UPDATE ---
Update Note
Progress Note Update
Patient seen and examined by orthopedic surgery this afternoon. He notes that the swelling localized to the right elbow has improved. His elbow is feeling better and denies any pain with ROM. He notes swelling to the right forearm region and hand.
He denies any fevers or chills.
PE: Physical examination of the right upper extremity, with attention to the right forearm and elbow reveals soft tissue dressing intact about the right forearm. This was taken down for further evaluation. There is findings consistent with right
upper extremity cellulitis and blistering mostly affecting the proximal third forearm with some scant purulent drainage noted. There is edema of the right hand and forearm. Right elbow without any open wounds. Full range of motion of the right
elbow without significant pain. No significant bursal fluid appreciated, decreased from prior. Digital range of motion intact. Mild tenderness to palpation primarily over the proximal forearm region. Neurovascularly intact.
Labs: Bursa aspiration positive for Staph aureus�methicillin sensitive.
Plan:
- Continue with IV ABX per infectious disease (currently on Anc). Continue to follow clinically.
- Range of motion of the elbow as tolerated. Digital range of motion as tolerated. Elevation and ice therapy to assist with RUE edema.
- Will continue with nonsurgical treatment at this time with IV ABX. Orthopedic surgery will continue to follow along.
[2024-04-13 15:20] VITALS: BP 102/61
[2024-04-13 16:33] LABS: Glucose - Point of Care 195 mg/dl (70-99)
[2024-04-13 21:37] LABS: Glucose - Point of Care 98 mg/dl (70-99)
[2024-04-13] MEDS: LIPITOR 40 MG PO (21:48)
[2024-04-13] MEDS: PROGRAF 1 MG PO (21:48)
[2024-04-13] MEDS: FLOMAX 0.400000000000000022 MG PO (21:48)
[2024-04-13] MEDS: LANTUS 0.100000000000000006 UNITS SC (21:49)
[2024-04-13 23:33] VITALS: BP 181/83
[2024-04-14 01:38] VITALS: BP 120/82
[2024-04-14] MEDS: ANCEF 10 IV ×3 (03:00→19:44)
[2024-04-14 05:28] VITALS: BMI 21.5
[2024-04-14 07:25] VITALS: BP 162/89
[2024-04-14 07:35] LABS: Glucose - Point of Care 146 mg/dl (70-99)
[2024-04-14] MEDS: NOVOLOG FLEXPEN-LOW RESISTANCE SC (07:58)
[2024-04-14] MEDS: HEPARIN 5000 UNITS SC ×2 (07:59→19:45)
[2024-04-14] MEDS: NOVOLOG FLEXPEN 8 UNITS SC ×3 (08:00→16:55)
[2024-04-14] MEDS: ASPIR LOW (ENTERIC COATED) 81 MG PO (08:01)
[2024-04-14] MEDS: KCL 20 MEQ PO ×3 (08:01→21:02)
[2024-04-14] MEDS: PROTONIX 40 MG PO (08:01)
[2024-04-14] MEDS: ZESTRIL 20 MG PO (08:02)
[2024-04-14] MEDS: PLAVIX 75 MG PO (08:02)
[2024-04-14] MEDS: DELTASONE 5 MG PO (08:02)
[2024-04-14] MEDS: GLUCOPHAGE 500 MG PO ×2 (08:02→16:55)
--- NOTE | 2024-04-14 10:05 | W.PN.HOSP.TC ---
Today's Communication/Plan
-
Continue antibiotics
Assessment / Plan
Assessment / Plan
Gen-AAOx3, NAD
HEENT-NC, AT, anicteric, clear oral mm
Neck-supple
CV-reg, no M, +S1/S2
Lungs-clear B/L
Abd-soft, NT, ND
Ext-right upper extremity William wrapped, tenderness over the elbow but improving.
Musculoskeletal-no cyanosis, clubbing
Skin-warm and dry
Neuro-grossly non-focal
Psych-calm, cooperative
MSSA sepsis due to right upper extremity skin and soft tissue infection -rule out right elbow olecranon septic bursitis. Orthopedics consulted and right elbow olecranon bursa aspirated, 6 cc of purulent fluid removed. Blood and fluid cultures
positive for MSSA. Discussed with infectious disease. Continue IV Ancef. Transthoracic echocardiogram done 04/12 without significant changes compared to previous. LVEF 55 to 60%.
Afebrile here, white blood cell count now normal. Repeat blood cultures negative.
Prior to admission, he was on cephalexin and doxycycline prescribed by his primary care doctor without improvement.
CATIE -present on admission. Suspect due to volume depletion. CATIE resolved with IV fluid administration.
Hypokalemia -resolved.
Hypomagnesemia -resolved.
Acute nonischemic myocardial injury -troponin trending down. Etiology likely due to infection, acute illness.
Hx heart transplant -on immunosuppression with tacrolimus, prednisone. Noncompliance noted by cardiology.
Chronic CHF preserved EF -stable.
Essential hypertension -stable.
GERD -on lansoprazole.
Hyperlipidemia -on atorvastatin.
DM2 with hyperglycemia -hemoglobin A1c 8.1%. Glucose 146 this morning. He is on metformin at home. Currently on low resistance NovoLog scale. Continue Lantus 10 units at bedtime, NovoLog 8 units AC, corrective scale. Continue metformin.
Sarcoidosis
Diverticulosis
Functional paraparesis -reportedly has not walked in approximately 2 months. Uses a electric wheelchair. Patient does not know why he is not walking. Does have a reported history of spinal stenosis. Physical therapy was able to ambulate patient
room distance with use of rolling walker. Gait was fairly steady with rolling walker and he was asymptomatic.
Full code
Anticipated Discharge: Within 24 hours
Subjective/Interval History
-
Date of Service: April 14, 2024
Patient seen and examined. No new complaints.
Objective Data
-
Vital Signs:
Vital Signs
Temp Pulse Resp BP Pulse Ox
98.2 F 83 18 162/89 97
04/14/24 07:25 04/14/24 08:02 04/14/24 07:25 04/14/24 08:02 04/14/24 07:25
I&O
04/13/24 04/14/24 04/15/24
06:59 06:59 06:59
Intake Total 1560 / 1560 1690 / 1690
Output Total 1645 / 1645 970 / 970
Balance -85 / -85 720 / 720
Review of Systems
-
History Source: Patient
All other systems: Reviewed and negative
--- NOTE | 2024-04-14 10:34 | W.PN.ID1 ---
Date of Service
Date of Service: April 14, 2024
Today's Communication
Continue antibiotics.
Assessment / Plan
Right upper extremity cellulitis
Right olecranon bursitis 2* MSSA
MSSA Bacteremia
Leukocytosis
- improved
Hx cardiac transplant
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
HTN
Dyslipidemia
DM
Sarcoidosis
Diverticulitis
Recommendations:
Continue cefazolin 2 g IV every 8 hours.
Currently following repeat blood cultures to assess clearance.
Monitor white count and temperature curve.
����������������������������������������������������������
Chief Complaint
-: Cellulitis and Bacteremia
Subjective / Review of Systems
Review of Systems: No Fever and No Chills
Vital Signs / Physical Exam
Vital Signs
Vital Signs
Temp Pulse Resp BP Pulse Ox
98.2 F 83 18 162/89 97
04/14/24 07:25 04/14/24 08:02 04/14/24 07:25 04/14/24 08:02 04/14/24 07:25
Physical Exam
Constitutional: No Acute Distress, Comfortable, Chronically Ill and Non-toxic
Eyes: No Conjunctival Hemorrhage and Sclera Anicteric
Cardiovascular: S1/S2; Negative S3/S4 or Murmur
Pulmonary: Clear; Negative Wheezes or Rales
Gastrointestinal: Soft, Non Tender and Non Distended
Musculoskeletal: Other (right arm with erythema / edema. Decreased olecranon bursa swelling.)
Skin: Warm and Dry
Neurological: Awake and Alert
Psychological: Calm
Objective Data
Lab Data
Lab Results
04/12/24 07:12
04/13/24 08:42
Estimated Creat Clear 53 ml/min 04/13/24 08:42
Lactic Acid 1.1 mmol/L (0.7-2.0) 04/10/24 20:42
Total Bilirubin 0.8 mg/dl (0.2-1.3) 04/10/24 20:42
AST 33 U/L (17-59) 04/10/24 20:42
ALT 32 U/L (0-50) 04/10/24 20:42
Alkaline Phosphatase 135 U/L (38-126) H 04/10/24 20:42
Most recent labs reviewed.
Micro Results:
04/12/24 11:49 Blood Culture - Preliminary
Blood/Venous No Growth in 24 hours- Final report to follow
04/12/24 11:20 Blood Culture - Preliminary
Blood/Venous No Growth in 24 hours- Final report to follow
04/10/24 20:42 Blood Culture - Preliminary
Blood/Venous S aureus-Methicillin Sensitive
Gram Stain - Preliminary
04/10/24 20:42 Blood Culture - Preliminary
Blood/Venous S aureus-Methicillin Sensitive
Gram Stain - Preliminary
04/11/24 12:17 Wound Culture - Final
Bursa S aureus-Methicillin Sensitive
Gram Stain - Final
04/11/24 00:33 MRSA Screen - Final
Nose No Methicillin Resistant Staphylococcus aureus isolated.
Imaging:
04/12/2024 ECHO (TTE): EF approximately 55%. Mildly dilated left atrium. Mild tricuspid regurgitation. No intracardiac mass or thrombus formation seen. Please see full dictation for additional detail.
04/10/2024 Ultrasound right upper extremity: No sonographic evidence for right upper extremity venous thrombosis noted.
[2024-04-14] MEDS: PROGRAF 0.5 MG PO ×2 (11:20→23:47)
[2024-04-14 11:24] LABS: Glucose - Point of Care 325 mg/dl (70-99)
[2024-04-14] MEDS: NOVOLOG FLEXPEN-LOW RESISTANCE 4 UNITS SC (11:24)
--- NOTE | 2024-04-14 15:05 | CM ---
Reviewed the chart notes and spoke with the patient at the bedside. PT evaluation today recommends SNF. Discussed PT evaluation with the patient. Patient agreeable to SNF. Precert will be required. Referrals with [facility] sent through [facility].
CM continues to be available to patient/family and is monitoring medical plan for needs at discharge.
Plan: Discharge to SNF/rehab once bed found. Precert will be required.
[2024-04-14 15:15] VITALS: BP 128/72
[2024-04-14 16:54] LABS: Glucose - Point of Care 154 mg/dl (70-99)
[2024-04-14] MEDS: NOVOLOG FLEXPEN-LOW RESISTANCE 1 UNITS SC (16:56)
--- NOTE | 2024-04-14 18:30 | W.PN.UPDATE ---
Update Note
Progress Note Update
Patient was seen and examined by orthopedic surgery this evening. No new complaints since yesterday. He feels the swelling has improved. Elbow is continuing to feel better, no pain with ROM. He denies any fevers or chills. Currently on Ancef per ID.
PE: Physical examination of the right upper extremity, with attention to the right forearm and elbow reveals rayne and soft tissue dressing intact about the right forearm. This was taken down for further evaluation. There is some erythema and edema
noted about right forearm with some expressible purulent drainage noted. No significant fluctuance appreciated today. There is edema of the right hand, however improved in comparison to yesterday. Right elbow without any open wounds. Full range of
motion of the right elbow and wrist without significant pain. No significant bursal fluid appreciated, decreased from prior. Digital range of motion intact. Mild tenderness to palpation primarily over the proximal forearm region. Neurovascularly
intact.
Labs: Bursa aspiration positive for Staph aureus�methicillin sensitive.
Plan:
- Continue with IV ABX per infectious disease (currently on Ancef). Continue to follow clinically.
- Range of motion of the elbow, wrist, and hand as tolerated. Elevation and ice therapy to assist with RUE edema.
- Orthopedic surgery will continue to follow along.
[2024-04-14] MEDS: FLOMAX 0.400000000000000022 MG PO (21:01)
[2024-04-14] MEDS: PROGRAF 1 MG PO (21:01)
[2024-04-14] MEDS: LIPITOR 40 MG PO (21:02)
[2024-04-14 21:41] LABS: Glucose - Point of Care 126 mg/dl (70-99)
[2024-04-14] MEDS: LANTUS 0.100000000000000006 UNITS SC (21:52)
[2024-04-14 23:04] VITALS: BP 218/109
[2024-04-14 23:55] VITALS: BP 122/82
[2024-04-15] MEDS: ANCEF 10 IV ×3 (03:08→20:25)
[2024-04-15 05:18] VITALS: BMI 21.5
[2024-04-15 06:08] LABS: % Basophils 0.3 % (0-2); % Eosinophils 0.5 % (0-6); % Immature Granulocytes 2.3 % (0-0.5); % Lymphocytes 12.2 % (20.5-51.1); % Monocytes 8.2 % (1.7-9.3); % Neutrophils 76.5 % (42.2-75.2); Absolute Eosinophils 0.1 10^3/uL (0-0.7); Absolute Immature Granulocytes 0.3 10^3/uL (0-0.05); Absolute Lymphocytes 1.3 10^3/uL (1.2-3.4); Absolute Monocytes 0.9 10^3/uL (0.1-0.6); Absolute Neutrophils 8.3 10^3/uL (1.4-6.5); Hematocrit 37.4 % (39.0-52.0); Hemoglobin 12.6 g/dL (13.0-18.0); Mean Corp Hgb Conc. 33.7 g/dL (33.0-37.0); Mean Platelet Volume 9.8 fL (7.4-10.4); Nucleated Red Blood Cells % 0 % (-); Platelet Count 254 10^3/uL (130-400); Red Cell Dist. Width 14.6 % (11.5-14.5); White Blood Cell Count 10.8 10^3/uL (4.8-10.8)
[2024-04-15 06:35] LABS: Blood Urea Nitrogen 38 mg/dl (9-20); Calcium 9.3 mg/dl (8.4-10.2); Carbon Dioxide 19 mmol/L (22-30); Chloride 106 mmol/L (98-107); Estimated Creatinine Clearance 60 ml/min; Glucose 138 mg/dl (70-99); Potassium 4.9 mmol/L (3.5-5.1); Sodium 136 mmol/L (135-145); eGFR > 60.00
[2024-04-15 07:44] VITALS: BP 140/79
[2024-04-15] MEDS: ASPIR LOW (ENTERIC COATED) 81 MG PO (07:46)
[2024-04-15] MEDS: DELTASONE 5 MG PO (07:47)
[2024-04-15] MEDS: KCL 20 MEQ PO (07:47)
[2024-04-15] MEDS: ZESTRIL 20 MG PO (07:47)
[2024-04-15] MEDS: PROTONIX 40 MG PO (07:47)
[2024-04-15] MEDS: GLUCOPHAGE 500 MG PO ×2 (07:47→16:45)
[2024-04-15] MEDS: PLAVIX 75 MG PO (07:47)
[2024-04-15 07:48] LABS: Glucose - Point of Care 160 mg/dl (70-99)
[2024-04-15] MEDS: NOVOLOG FLEXPEN-LOW RESISTANCE 1 UNITS SC (07:48)
[2024-04-15] MEDS: NOVOLOG FLEXPEN 8 UNITS SC ×3 (07:48→17:45)
[2024-04-15] MEDS: HEPARIN 5000 UNITS SC (07:48)
--- NOTE | 2024-04-15 09:26 | W.PN.HOSP.TC ---
Today's Communication/Plan
-
see bold
Assessment / Plan
Assessment / Plan
MSSA Bacteremia due to right upper extremity cellulitis with Right olecranon bursitis 2* MSSA - Transthoracic echocardiogram done 04/12 without significant changes compared to previous. LVEF 55 to 60%.
Afebrile here, white blood cell count now normal. Repeat blood cultures negative. Appreciate ID input, continue cefazolin 2 g IV every 8 hours, will need at least 2 weeks IV antibiotics. Last fever 04/15 at 3:44PM.
Prior to admission, he was on cephalexin and doxycycline prescribed by his primary care doctor without improvement.
CATIE -present on admission. Suspect due to volume depletion. CATIE resolved with IV fluid administration.
Hypokalemia -resolved.
Hypomagnesemia -resolved.
Acute nonischemic myocardial injury -troponin trending down. Etiology likely due to infection, acute illness.
Hx heart transplant -on immunosuppression with tacrolimus, prednisone. Noncompliance noted by cardiology. Cardiology signed off.
Chronic CHF preserved EF -stable.
Labile hypertension -blood pressure fluctuates, was as high as 218/109, then as low as 102/61. Continue lisinopril 20 mg p.o. daily. Will add hydralazine 100 mg p.o. 3 times daily as needed SBP greater than 150.
GERD -on lansoprazole.
Hyperlipidemia -on atorvastatin.
DM2 with hyperglycemia -hemoglobin A1c 8.1%. He is on metformin at home. Currently on low resistance NovoLog scale. Continue Lantus 10 units at bedtime, NovoLog 8 units AC, corrective scale. Continue metformin.
Sarcoidosis
Diverticulosis
Functional paraparesis -reportedly has not walked in approximately 2 months. Uses a electric wheelchair. Patient does not know why he is not walking. Does have a reported history of spinal stenosis. Physical therapy was able to ambulate patient
room distance with use of rolling walker. Gait was fairly steady with rolling walker and he was asymptomatic.
DVT prophylaxis�subcu Lovenox
Full code
Total time spent to see the patient on the floor, examine the patient, review data and lab results, discuss treatment plan with patient, nursing staff around 35 minutes.
Physical exam
Gen-AAOx3, NAD
HEENT-NC, AT, anicteric, clear oral mm
Neck-supple
CV-reg, no M, +S1/S2
Lungs-clear B/L
Abd-soft, NT, ND
Ext-right upper extremity William wrapped, tenderness over the elbow but improving.
Musculoskeletal-no cyanosis, clubbing
Skin-warm and dry
Neuro-grossly non-focal
Psych-calm, cooperative
Anticipated Discharge: 24 - 48 hours
Subjective/Interval History
-
Date of Service: April 15, 2024
Feel well. Right elbow pain is 1/10. +fever this afternoon at 100.9.
Objective Data
-
Labs:
Laboratory Results
04/15/24
05:22
WBC 10.8
Hgb 12.6 L
Hct 37.4 L
Plt Count 254
Sodium 136
Potassium 4.9
Chloride 106
Carbon Dioxide 19 L
BUN 38 H
Creatinine 1.0
Glucose 138 H
Calcium 9.3
Vital Signs:
Vital Signs
Temp Pulse Resp BP Pulse Ox
98.4 F 88 18 140/79 97
04/15/24 07:44 04/15/24 07:47 04/15/24 07:44 04/15/24 07:47 04/15/24 07:44
I&O
04/14/24 04/15/24 04/16/24
06:59 06:59 06:59
Intake Total 1690 / 1690 1380 / 1380
Output Total 970 / 970 975 / 975
Balance 720 / 720 405 / 405
--- NOTE | 2024-04-15 09:36 | W.PN.UPDATE ---
Update Note
Progress Note Update
Patient resting comfortably in bed this morning. He denies any significant changes from yesterday. He denies any fevers or chills. Currently on Ancef per ID.
PE: Physical examination of the right upper extremity, with attention to the right forearm and elbow reveals rayne and soft tissue dressing intact about the right forearm. This was taken down for further evaluation. There is some erythema and edema
noted about right forearm with a very small amount of serous drainage noted. No purulence able to be expressed. No fluctuance appreciated today. Generalized edema of the right hand. Right elbow without any open wounds. Full range of motion of the
right elbow and wrist without significant pain. No significant bursal fluid appreciated. Digital range of motion intact. Mild tenderness to palpation primarily over the proximal forearm region. Neurovascularly intact.
Labs: Bursa aspiration positive for Staph aureus�methicillin sensitive.
Plan:
- Patient appears to continue to progress in the right direction.
- Continue with IV ABX per infectious disease (currently on Ancef). Continue to follow clinically.
- Range of motion of the elbow, wrist, and hand as tolerated. Elevation and ice therapy to assist with RUE edema.
--- NOTE | 2024-04-15 09:49 | W.PN.CARDCBS ---
Addendum entered and electronically signed by Isaac Fulton, 04/15/24 10:43:
I saw and examined the patient.
The Hot Molder's note was reviewed and I agree with the note.
Comment:
Plan:
Stable cv status
Cardiology follow up at transplant center arranged
No further lasix required at this time
Reviewed with nursing
please recall if needed.
Original Note:
Today's Communication / Plan
-
No indication for ongoing Lasix therapy
Cardiology follow up at transplant center arranged
Impression / Plan
-
PCP: Dr. Norman
Cardiology: Transplant physician at [facility] is Dr. Natty Tobias, last seen 01/02/23, transplant center # to call with questions/concerns is [phone]
Pulm: Dr. Hoffman
Impression:
RUE skin and soft tissue infection
Right olecranon bursa infection
s/p aspiration with purulent fluid 04/11/24
CATIE
Acute HFpEF
PAD with claudication
previously recommended B/L femoral endarterectomies in 2021, but never performed
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
original transplant 01/27/01 and then retransplant 02/13/01 due to original donor having malignant melanoma
Pulmonary and cardiac sarcoid
Chronic immunosuppression
HTN
Hyperlipidemia
Hypokalemia
Elevated Troponin
Echo 01/10/24: EF 58%, mild TR with PAP 49 mmHg
Echo 04/12/24: Normal left ventricular systolic function. Estimated Left ventricular ejection fraction is 55-60% by Holloway's method.Mild tricuspid regurgitation. Estimated pulmonary artery systolic pressure of 52 mmHg, assuming a right atrial
pressure of 3mmHg.
Plan:
-Hospitalist, Ortho and ID following for RUE cellulitis and antibiotics are ordered.
-From a CV perspective, patient with h/o OHT in 2000 and recently only marginal compliance with transplant center. Called and talked with his transplant center on 04/11/24. Tacrolimus level checked as an outpatient 04/05/24 was undetectable. Tacrolimus
level 04/11/24 was 6.2.
-Patient currently scheduled for his annual visit at their clinic 06/17/24 starting with an echo at 0730, then PET/stress at 0900 and finally an office visit at 1030. Patient informed of his upcoming transplant center appt and says he has not idea
how he will get down there because he is no longer driving. His son lives with him and also does not drive. If we have any additional concerns regarding transplant then we should call [phone].
-Weight stable at 141 lbs. Diuresed as much as 11 lbs if admission weight is correct. Diuresed with Lasix 20 mg IV daily, but never had symptomatic improvement. LE edema improved, but did not resolve completely. Suspect edema is multifactorial
including low albumin.
-No h/o CHF and patient was not taking a diuretic prior to admission. Lasix IV stopped 04/13/24. Not sure there is a role for daily Lasix PO.
-Peak troponin 0.043. No chest pain. Will manage as a nonischemic myocardial injury Troponin elevation.
-Cardiology follow up arranged.
HPI: Patient came to [facility] with RUE swelling and was admitted with cellulitis, cardiology has been consulted for acute HF. Patient previously diagnosed with cardiac and pulmonary sarcoid and after following with cardiology locally he eventually
transitioned his care to [facility] and had OHT as outlined above. Patient reports following up at [facility] every 6 months, but that he has not been seen for the past year due to mobility issues. Patient was seen by Dr. Stover locally for vascular surgery
evaluation 05/13/22 and was recommended B/L femoral endarterectomies with possible B/L iliac stents, but was told that he would need clearance from his transplant team at [facility] first. Patient was not able to get an appt to be seen any sooner than
07/13/22 despite vascular surgery team reaching out to [facility] transplant team to facilitate care, when this happened the patient stopped following locally for vascular care and transitioned to Dr. Celestin at [facility], but according to patient he never had
peripheral revascularization surgery and is now wheelchair bound due to pain and weakness, he reports he has not walked in months. Patient came to [facility] yesterday with increased RUE swelling and generalized weakness resulting in a fall from his
motorized wheelchair 2 days ago. Patient is now admitted with cellulitis and orthopedic surgery service was able to aspirate purulent fluid from his right olecranon bursa. ID is following and suspects Strep so antibiotics have been narrowed to
Ancef. Patient is chronically on tacrolimus and prednisone, tacrolimus level is pending. Cardiology was consulted for possible acute HF. Patient denies SOB or KEENE, but says he is weak. He has edema, but he is not sure if that is acute or chronic.
Progress Note - [employer]
Subjective
Date of Service: April 15, 2024
He feels well
Objective
Labs:
04/15/24 05:22
04/15/24 05:22
Labs
Hgb 12.6 g/dL (13.0-18.0) L 04/15/24 05:22
Hct 37.4 % (39.0-52.0) L 04/15/24 05:22
Plt Count 254 10^3/uL (130-400) 04/15/24 05:22
Sodium 136 mmol/L (135-145) 04/15/24 05:22
Potassium 4.9 mmol/L (3.5-5.1) 04/15/24 05:22
BUN 38 mg/dl (9-20) H 04/15/24 05:22
Creatinine 1.0 mg/dL (0.7-1.3) 04/15/24 05:22
Glucose 138 mg/dl (70-99) H 04/15/24 05:22
Vital Signs and I&O:
Vital Signs
Temp Pulse Resp BP Pulse Ox
98.4 F 88 18 140/79 97
04/15/24 07:44 04/15/24 07:47 04/15/24 07:44 04/15/24 07:47 04/15/24 07:44
Vital Signs
Temp Pulse Resp BP Pulse Ox
98.4 F 88 18 140/79 97
04/15/24 07:44 04/15/24 07:47 04/15/24 07:44 04/15/24 07:47 04/15/24 07:44
Intake & Output
04/13/24 04/14/24 04/15/24 04/16/24
06:59 06:59 06:59 06:59
Intake Total 1560 / 1560 1690 / 1690 1380 / 1380
Output Total 1645 / 1645 970 / 970 975 / 975
Balance -85 / -85 720 / 720 405 / 405
Physical Exam
Physical Exam
GEN: NAD.
HEENT: EOMI
LUNGS: No audible wheeze
CV: SR on tele
EXT: +1 B/L LE edema
NEURO: Gross non-focal
SKIN: No rash
--- NOTE | 2024-04-15 10:03 | W.PN.ID1 ---
Date of Service
Date of Service: April 15, 2024
Today's Communication
Continue antibiotics.
Assessment / Plan
Severe right upper extremity cellulitis
Right olecranon bursitis 2* MSSA
MSSA Bacteremia (04/10 - 04/11)
Leukocytosis
- improved
Hx cardiac transplant
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
HTN
Dyslipidemia
DM
Sarcoidosis
Diverticulitis
Recommendations:
Continue cefazolin 2 g IV every 8 hours.
Currently following repeat blood cultures to assess clearance.
Patient will need at least 2 additional weeks of cefazolin, but possibly more given slow clinical response.
Continue with upper extremity elevation.
Monitor white count and temperature curve.
����������������������������������������������������������
Chief Complaint
-: Cellulitis and Bacteremia
Subjective / Review of Systems
Review of Systems: No Fever and No Chills
Vital Signs / Physical Exam
Vital Signs
Vital Signs
Temp Pulse Resp BP Pulse Ox
98.4 F 88 18 140/79 97
04/15/24 07:44 04/15/24 07:47 04/15/24 07:44 04/15/24 07:47 04/15/24 07:44
Physical Exam
Constitutional: No Acute Distress, Comfortable, Chronically Ill and Non-toxic
Eyes: No Conjunctival Hemorrhage and Sclera Anicteric
Cardiovascular: S1/S2; Negative S3/S4
Pulmonary: Clear; Negative Wheezes or Rales
Gastrointestinal: Soft and Non Tender
Extremities: Edema (Right upper extremity forearm area), Erythema (Right upper extremity forearm) and Pulses
Neurological: Awake and Alert
Psychological: Calm
Objective Data
Lab Data
Lab Results
04/15/24 05:22
04/15/24 05:22
Estimated Creat Clear 60 ml/min 04/15/24 05:22
Lactic Acid 1.1 mmol/L (0.7-2.0) 04/10/24 20:42
Total Bilirubin 0.8 mg/dl (0.2-1.3) 04/10/24 20:42
AST 33 U/L (17-59) 04/10/24 20:42
ALT 32 U/L (0-50) 04/10/24 20:42
Alkaline Phosphatase 135 U/L (38-126) H 04/10/24 20:42
Most recent labs reviewed.
Micro Results:
04/12/24 11:49 Blood Culture - Preliminary
Blood/Venous No Growth in 48 hours- Final report to follow
04/12/24 11:20 Blood Culture - Preliminary
Blood/Venous No Growth in 48 hours- Final report to follow
04/14/24 11:11 Blood Culture - Pending
Blood/Venous
04/14/24 10:45 Blood Culture - Pending
Blood/Venous
04/10/24 20:42 Blood Culture - Preliminary
Blood/Venous S aureus-Methicillin Sensitive
Gram Stain - Preliminary
04/10/24 20:42 Blood Culture - Preliminary
Blood/Venous S aureus-Methicillin Sensitive
Gram Stain - Preliminary
04/11/24 12:17 Wound Culture - Final
Bursa S aureus-Methicillin Sensitive
Gram Stain - Final
04/11/24 00:33 MRSA Screen - Final
Nose No Methicillin Resistant Staphylococcus aureus isolated.
Imaging:
04/12/2024 ECHO (TTE): EF approximately 55%. Mildly dilated left atrium. Mild tricuspid regurgitation. No intracardiac mass or thrombus formation seen. Please see full dictation for additional detail.
04/10/2024 Ultrasound right upper extremity: No sonographic evidence for right upper extremity venous thrombosis noted.
[2024-04-15] MEDS: PROGRAF 0.5 MG PO (11:47)
[2024-04-15] MEDS: NOVOLOG FLEXPEN-LOW RESISTANCE 2 UNITS SC (12:07)
[2024-04-15 12:08] LABS: Glucose - Point of Care 229 mg/dl (70-99)
[2024-04-15 15:44] VITALS: BP 183/93
--- NOTE | 2024-04-15 16:14 | CM ---
Initial PT and OT recommendations for HH services. Most recent PT evaluation on 04/14/24 recommends STR. Patient prefers home services. Will await next therapy evals to get preferences for HH vs STR.
[2024-04-15] MEDS: KCL PO (16:45)
[2024-04-15 17:36] LABS: Glucose - Point of Care 147 mg/dl (70-99)
[2024-04-15 17:39] VITALS: BP 167/79
[2024-04-15] MEDS: APRESOLINE 100 MG PO (17:44)
[2024-04-15] MEDS: NOVOLOG FLEXPEN-LOW RESISTANCE SC (17:45)
[2024-04-15] MEDS: LOVENOX 40 MG SC (17:47)
--- NOTE | 2024-04-15 19:33 | PTCARENOTE ---
Pt refused Tylenol for fever, stating ' Tylenol is bad for you, it makes you sick. I won't take Tylenol'
[2024-04-15] MEDS: ULTRAM 50 MG PO (20:30)
[2024-04-15 21:45] LABS: Glucose - Point of Care 136 mg/dl (70-99)
[2024-04-15] MEDS: FLOMAX 0.400000000000000022 MG PO (21:52)
[2024-04-15] MEDS: LANTUS 0.100000000000000006 UNITS SC (21:52)
[2024-04-15] MEDS: PROGRAF 1 MG PO (21:52)
[2024-04-15] MEDS: LIPITOR 40 MG PO (21:52)
[2024-04-15 23:23] VITALS: BP 105/64
[2024-04-16] MEDS: PROGRAF 0.5 MG PO ×3 (00:45→23:24)
[2024-04-16] MEDS: ANCEF 10 IV ×3 (04:04→20:05)
[2024-04-16 05:24] VITALS: BMI 21.3
[2024-04-16 07:22] VITALS: BP 128/67
--- NOTE | 2024-04-16 07:33 | W.PN.UPDATE ---
Update Note
Progress Note Update
Patient resting comfortably in bed this morning. He denies any significant changes from yesterday. He has no pain. He denies any fevers or chills. Currently on Ancef per ID.
PE: Physical examination of the right upper extremity, with attention to the right forearm and elbow reveals rayne and soft tissue dressing intact about the right forearm. This was taken down for further evaluation. There is some erythema and edema
noted about right forearm. No purulence able to be expressed. No fluctuance appreciated today. Generalized edema of the right hand. Right elbow without any open wounds. Full range of motion of the right elbow and wrist without significant pain. No
significant bursal fluid appreciated. Digital range of motion intact. No tenderness to palpation over the forearm and elbow. Neurovascularly intact.
Labs: Bursa aspiration positive for Staph aureus�methicillin sensitive.
Plan:
- Patient appears to continue to progress in the right direction.
- Continue with IV ABX per infectious disease (currently on Ancef). Continue to follow clinically.
- Range of motion of the elbow, wrist, and hand as tolerated. Elevation and ice therapy to assist with RUE edema.
- Change/reinforce dressing as needed
[2024-04-16 08:09] LABS: Glucose - Point of Care 170 mg/dl (70-99)
[2024-04-16] MEDS: ASPIR LOW (ENTERIC COATED) 81 MG PO (08:14)
[2024-04-16] MEDS: DELTASONE 5 MG PO (08:14)
[2024-04-16] MEDS: PROTONIX 40 MG PO (08:14)
[2024-04-16] MEDS: PLAVIX 75 MG PO (08:15)
[2024-04-16] MEDS: NOVOLOG FLEXPEN-LOW RESISTANCE 1 UNITS SC (08:15)
[2024-04-16] MEDS: NOVOLOG FLEXPEN 8 UNITS SC ×3 (08:15→17:43)
[2024-04-16] MEDS: GLUCOPHAGE 500 MG PO ×2 (08:15→17:40)
[2024-04-16] MEDS: KCL 20 MEQ PO (08:15)
[2024-04-16] MEDS: ZESTRIL 20 MG PO (08:15)
[2024-04-16 08:24] LABS: Hematocrit 32.8 % (39.0-52.0); Hemoglobin 11.2 g/dL (13.0-18.0); Mean Corp Hgb Conc. 34.1 g/dL (33.0-37.0); Mean Corpuscular Hgb 29.8 pg (27.0-31.0); Mean Corpuscular Volume 87.2 fL (80.0-94.0); Mean Platelet Volume 9.9 fL (7.4-10.4); Platelet Count 264 10^3/uL (130-400); Red Blood Cell Count 3.76 10^6/uL (4.70-6.10); Red Cell Dist. Width 14.6 % (11.5-14.5); White Blood Cell Count 9.2 10^3/uL (4.8-10.8)
--- NOTE | 2024-04-16 09:02 | W.PN.HOSP.TC ---
Today's Communication/Plan
-
see bold
Assessment / Plan
Assessment / Plan
MSSA Bacteremia due to right upper extremity cellulitis with Right olecranon bursitis 2* MSSA - Transthoracic echocardiogram done 04/12 without significant changes compared to previous. LVEF 55 to 60%.
Afebrile here, white blood cell count now normal. Repeat blood cultures negative. Appreciate ID input, continue cefazolin 2 g IV every 8 hours, will need at least 2 weeks IV antibiotics. Last fever 04/15 at 3:44PM.
Prior to admission, he was on cephalexin and doxycycline prescribed by his primary care doctor without improvement.
CATIE -present on admission. Suspect due to volume depletion. CATIE resolved with IV fluid administration.
Hypokalemia -resolved.
Hypomagnesemia -replete prn.
Acute nonischemic myocardial injury -troponin trending down. Etiology likely due to infection, acute illness.
Hx heart transplant -on immunosuppression with tacrolimus, prednisone. Noncompliance noted by cardiology. Cardiology signed off.
Chronic CHF preserved EF -stable.
Labile hypertension -blood pressure fluctuates, was as high as 218/109, then as low as 102/61. Continue lisinopril 20 mg p.o. daily. Added hydralazine 50 mg p.o. 3 times daily as needed SBP greater than 160.
GERD -on lansoprazole.
Hyperlipidemia -on atorvastatin.
DM2 with hyperglycemia -hemoglobin A1c 8.1%. He is on metformin at home. Currently on low resistance NovoLog scale. Continue Lantus 10 units at bedtime, NovoLog 8 units AC, corrective scale. Continue metformin.
Sarcoidosis
Diverticulosis
Functional paraparesis -reportedly has not walked in approximately 2 months. Uses a electric wheelchair. Patient does not know why he is not walking. Does have a reported history of spinal stenosis. Physical therapy was able to ambulate patient
room distance with use of rolling walker. Gait was fairly steady with rolling walker and he was asymptomatic.
DVT prophylaxis�subcu Lovenox
Full code
Total time spent to see the patient on the floor, examine the patient, review data and lab results, discuss treatment plan with patient, nursing staff around 35 minutes.
Physical exam
Gen-AAOx3, NAD
HEENT-NC, AT, anicteric, clear oral mm
Neck-supple
CV-reg, no M, +S1/S2
Lungs-clear B/L
Abd-soft, NT, ND
Ext-right upper extremity William wrapped, tenderness over the elbow but improving.
Musculoskeletal-no cyanosis, clubbing
Skin-warm and dry
Neuro-grossly non-focal
Psych-calm, cooperative
Anticipated Discharge: 24 - 48 hours
Subjective/Interval History
-
Date of Service: April 15, 2024
Patient had fever yesterday afternoon, currently resolved. His right elbow pain is mild. No vomiting.
Objective Data
-
Labs:
Laboratory Results
04/15/24
05:22
WBC 10.8
Hgb 12.6 L
Hct 37.4 L
Plt Count 254
Sodium 136
Potassium 4.9
Chloride 106
Carbon Dioxide 19 L
BUN 38 H
Creatinine 1.0
Glucose 138 H
Calcium 9.3
Vital Signs:
Vital Signs
Temp Pulse Resp BP Pulse Ox
100.9 F H 90 18 183/93 98
04/15/24 15:44 04/15/24 15:44 04/15/24 15:44 04/15/24 15:44 04/15/24 15:44
I&O
04/14/24 04/15/24 04/16/24
06:59 06:59 06:59
Intake Total 1690 / 1690 1380 / 1380
Output Total 970 / 970 975 / 975
Balance 720 / 720 405 / 405
[2024-04-16 09:06] LABS: Blood Urea Nitrogen 38 mg/dl (9-20); Calcium 8.9 mg/dl (8.4-10.2); Carbon Dioxide 23 mmol/L (22-30); Chloride 105 mmol/L (98-107); Estimated Creatinine Clearance 59 ml/min; Glucose 155 mg/dl (70-99); Magnesium 1.4 mg/dl (1.6-2.3); Phosphorus 3.7 mg/dl (2.5-4.5); Potassium 4.5 mmol/L (3.5-5.1); Sodium 135 mmol/L (135-145); eGFR > 60.00
[2024-04-16 12:08] LABS: Glucose - Point of Care 215 mg/dl (70-99)
[2024-04-16] MEDS: NOVOLOG FLEXPEN-LOW RESISTANCE 2 UNITS SC (12:13)
--- NOTE | 2024-04-16 14:33 | CM ---
Therapy eval today recommending STR at SNF. Referrals previously forwarded. Patient not cleared for discharge.
--- NOTE | 2024-04-16 15:23 | W.PN.ID1 ---
Date of Service
Date of Service: April 16, 2024
Today's Communication
Continue antibiotics.
Assessment / Plan
Severe right upper extremity cellulitis
Right olecranon bursitis 2* MSSA
MSSA Bacteremia (04/10 - 04/11)
Leukocytosis
- improved
Hx cardiac transplant
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
HTN
Dyslipidemia
DM
Sarcoidosis
Diverticulitis
Recommendations:
Continue cefazolin 2 g IV every 8 hours.
Repeat blood cultures negative x 4 days.
Would recommend at least 2 additional weeks of cefazolin, with further antibiotic therapy determined by clinical response.
Okay to place PICC line.
Continue with upper extremity elevation.
Monitor white count and temperature curve.
����������������������������������������������������������
Chief Complaint
-: Cellulitis and Bacteremia
Subjective / Review of Systems
Patient seen and examined. Reports ongoing, but decreased, right forearm discomfort.
Review of Systems: No Fever and No Chills
Vital Signs / Physical Exam
Vital Signs
Vital Signs
Temp Pulse Resp BP Pulse Ox
98.3 F 82 20 128/67 98
04/16/24 07:22 04/16/24 08:15 04/16/24 07:22 04/16/24 08:15 04/16/24 07:22
Physical Exam
Constitutional: No Acute Distress, Comfortable, Chronically Ill and Non-toxic
Eyes: No Conjunctival Hemorrhage and Sclera Anicteric
Cardiovascular: S1/S2; Negative S3/S4
Pulmonary: Clear; Negative Wheezes or Rales
Gastrointestinal: Soft and Non Tender
Extremities: Edema (Right upper extremity forearm area), Erythema (Right upper extremity forearm) and Pulses
Neurological: Awake and Alert
Psychological: Calm
Objective Data
Lab Data
Lab Results
04/16/24 07:32
04/16/24 07:32
Estimated Creat Clear 59 ml/min 04/16/24 07:32
Lactic Acid 1.1 mmol/L (0.7-2.0) 04/10/24 20:42
Total Bilirubin 0.8 mg/dl (0.2-1.3) 04/10/24 20:42
AST 33 U/L (17-59) 04/10/24 20:42
ALT 32 U/L (0-50) 04/10/24 20:42
Alkaline Phosphatase 135 U/L (38-126) H 04/10/24 20:42
Most recent labs reviewed.
Micro Results:
04/12/24 11:49 Blood Culture - Preliminary
Blood/Venous No Growth in 4 days- Final report to follow
04/12/24 11:20 Blood Culture - Preliminary
Blood/Venous No Growth in 4 days- Final report to follow
04/14/24 11:11 Blood Culture - Preliminary
Blood/Venous No Growth in 48 hours- Final report to follow
04/14/24 10:45 Blood Culture - Preliminary
Blood/Venous No Growth in 48 hours- Final report to follow
04/10/24 20:42 Blood Culture - Preliminary
Blood/Venous S aureus-Methicillin Sensitive
Gram Stain - Preliminary
04/10/24 20:42 Blood Culture - Preliminary
Blood/Venous S aureus-Methicillin Sensitive
Gram Stain - Preliminary
04/11/24 12:17 Wound Culture - Final
Bursa S aureus-Methicillin Sensitive
Gram Stain - Final
04/11/24 00:33 MRSA Screen - Final
Nose No Methicillin Resistant Staphylococcus aureus isolated.
Imaging:
04/12/2024 ECHO (TTE): EF approximately 55%. Mildly dilated left atrium. Mild tricuspid regurgitation. No intracardiac mass or thrombus formation seen. Please see full dictation for additional detail.
04/10/2024 Ultrasound right upper extremity: No sonographic evidence for right upper extremity venous thrombosis noted.
[2024-04-16 15:52] VITALS: BP 96/55
[2024-04-16 16:04] VITALS: BP 95/71; PULSE 84; O2SAT 98
[2024-04-16] MEDS: MAGNESIUM SULFATE 50 IV (16:27)
[2024-04-16] MEDS: LOVENOX 40 MG SC (17:39)
[2024-04-16 17:43] LABS: Glucose - Point of Care 149 mg/dl (70-99)
[2024-04-16] MEDS: NOVOLOG FLEXPEN-LOW RESISTANCE SC (17:43)
[2024-04-16] MEDS: FLUSH (NSS) 1 FLUSH IV (20:06)
[2024-04-16 21:22] LABS: Glucose - Point of Care 80 mg/dl (70-99)
[2024-04-16] MEDS: LANTUS SC (21:56)
[2024-04-16] MEDS: LIPITOR 40 MG PO (21:56)
[2024-04-16] MEDS: FLOMAX 0.400000000000000022 MG PO (21:56)
[2024-04-16] MEDS: PROGRAF 1 MG PO (21:56)
[2024-04-16 23:22] VITALS: BP 143/88
[2024-04-17 02:45] VITALS: BP 97/48
--- NOTE | 2024-04-17 03:53 | DOWNTIME ---
There was a [employer]st Downtime on 04/17/2024 from 0100 to 04/17/2024 at 0337. Downtime documentation of patient's care, including medication administrations, has been reconciled in the electronic record per guidelines. Refer to the
patient's paper chart under the miscellaneous tab to see printed paper medication records and downtime forms.
--- NOTE | 2024-04-17 04:05 | FALL ---
Description of Fall:
unwitnessed, pt found at the end of the bed kneeling on his knees, pt helped to get up into his bed, Full ROM, denies hitting his head, AAO.
Injuries Noted:
redness to bl knees
Action Taken:
Neurochecks, bed alarm box replaced, call summers within reach, bed to the lowest position, re-educated pt to use call summers when needing assistance.
Name of Provider Notified: Rob Castelan BIOLOGY RESEARCH ASSISTANT
[2024-04-17] MEDS: ANCEF 10 IV ×2 (04:16→13:05)
--- NOTE | 2024-04-17 05:02 | W.PN.UPDATE ---
Update Note
Progress Note Update
RN notified OIL RAG WASHER, patient found to be sitting in a kneeling position at the bedside. Patient seen and evaluated. Patient is AAOx3, stated he was trying to go use the commode, denies hitting head, b/l knees slightly reddened. no swelling, cuts or
bruises noted, + ROM both knees and legs. + pulses. No cuts bruises or edema noted anywhere in the body. Patient is on ASA, Plavix, Lovenox, Platelets in AM 264, labs due in AM. Will do Neuro-checks per protocol. Fall precautions. labs in AM.
[2024-04-17 05:12] VITALS: BMI 21.4
[2024-04-17 05:26] LABS: Hematocrit 32.6 % (39.0-52.0); Hemoglobin 11.1 g/dL (13.0-18.0); Mean Corpuscular Volume 88.1 fL (80.0-94.0); Mean Platelet Volume 9.6 fL (7.4-10.4); Platelet Count 283 10^3/uL (130-400); Red Cell Dist. Width 14.5 % (11.5-14.5); White Blood Cell Count 9.9 10^3/uL (4.8-10.8)
[2024-04-17 05:57] LABS: Blood Urea Nitrogen 42 mg/dl (9-20); Calcium 8.9 mg/dl (8.4-10.2); Carbon Dioxide 25 mmol/L (22-30); Chloride 103 mmol/L (98-107); Estimated Creatinine Clearance 60 ml/min; Glucose 154 mg/dl (70-99); Magnesium 1.7 mg/dl (1.6-2.3); Potassium 4.7 mmol/L (3.5-5.1); Sodium 136 mmol/L (135-145); eGFR > 60.00
[2024-04-17 07:31] VITALS: BP 128/85
[2024-04-17 07:41] LABS: Glucose - Point of Care 153 mg/dl (70-99)
[2024-04-17] MEDS: GLUCOPHAGE 500 MG PO (08:49)
[2024-04-17] MEDS: PROTONIX 40 MG PO (08:49)
[2024-04-17] MEDS: PLAVIX 75 MG PO (08:49)
[2024-04-17] MEDS: ZESTRIL 20 MG PO (08:49)
[2024-04-17] MEDS: DELTASONE 5 MG PO (08:49)
[2024-04-17] MEDS: ASPIR LOW (ENTERIC COATED) 81 MG PO (08:49)
[2024-04-17] MEDS: NOVOLOG FLEXPEN 8 UNITS SC ×2 (08:51→13:05)
[2024-04-17] MEDS: NOVOLOG FLEXPEN-LOW RESISTANCE 1 UNITS SC ×2 (08:52→13:05)
--- NOTE | 2024-04-17 08:53 | W.PN.HOSP.TC ---
Today's Communication/Plan
-
Cleared by ID for discharge today
Assessment / Plan
Assessment / Plan
MSSA Bacteremia due to right upper extremity cellulitis with Right olecranon bursitis 2* MSSA - Transthoracic echocardiogram done 04/12 without significant changes compared to previous. LVEF 55 to 60%.
Afebrile here, white blood cell count now normal. Repeat blood cultures negative. Appreciate ID input, continue cefazolin 2 g IV every 8 hours, will need at least 2 weeks IV antibiotics through 04/30/24. Last fever 04/15 at 3:44PM. Follow-up with ID
in the office to determine the need for additional antibiotic therapy. Discharge to [facility].
Prior to admission, he was on cephalexin and doxycycline prescribed by his primary care doctor without improvement.
CATIE -present on admission. Suspect due to volume depletion. CATIE resolved with IV fluid administration.
Hypokalemia -resolved.
Hypomagnesemia -replete prn.
Acute nonischemic myocardial injury -troponin trending down. Etiology likely due to infection, acute illness.
Hx heart transplant -on immunosuppression with tacrolimus, prednisone. Noncompliance noted by cardiology. Cardiology signed off.
Chronic CHF preserved EF -stable.
Labile hypertension -blood pressure fluctuates, was as high as 218/109, then as low as 102/61. Continue lisinopril 20 mg p.o. daily.
GERD -on lansoprazole.
Hyperlipidemia -on atorvastatin.
DM2 with hyperglycemia -hemoglobin A1c 8.1%. He is on metformin at home. Currently on low resistance NovoLog scale. Will discharge on Lantus 10 units at bedtime, NovoLog 6 units AC, metformin.
Sarcoidosis
Diverticulosis
Functional paraparesis -reportedly has not walked in approximately 2 months. Uses a electric wheelchair. Patient does not know why he is not walking. Does have a reported history of spinal stenosis. Physical therapy was able to ambulate patient
room distance with use of rolling walker. Gait was fairly steady with rolling walker and he was asymptomatic.
DVT prophylaxis�subcu Lovenox
Full code
Physical exam
Gen-AAOx3, NAD
HEENT-NC, AT, anicteric, clear oral mm
Neck-supple
CV-reg, no M, +S1/S2
Lungs-clear B/L
Abd-soft, NT, ND
Ext-right upper extremity William wrapped, tenderness over the elbow but improving.
Musculoskeletal-no cyanosis, clubbing
Skin-warm and dry
Neuro-grossly non-focal
Psych-calm, cooperative
Anticipated Discharge: Today
Subjective/Interval History
-
Date of Service: April 17, 2024
Overnight events noted. Patient denies pain. No chest pain, no fever.
Objective Data
-
Labs:
Laboratory Results
04/17/24
05:07
WBC 9.9
Hgb 11.1 L
Hct 32.6 L
Plt Count 283
Sodium 136
Potassium 4.7
Chloride 103
Carbon Dioxide 25
BUN 42 H
Creatinine 1.0
Glucose 154 H
Calcium 8.9
Vital Signs:
Vital Signs
Temp Pulse Resp BP Pulse Ox
97.9 F 82 18 128/85 98
04/17/24 07:31 04/17/24 08:49 04/17/24 07:31 04/17/24 08:49 04/17/24 07:31
I&O
04/16/24 04/17/24 04/18/24
06:59 06:59 06:59
Intake Total 1851 / 1851 1610 / 1610
Output Total 300 / 300 850 / 850
Balance 1551 / 1551 760 / 760
--- NOTE | 2024-04-17 09:41 | W.PN.UPDATE ---
Update Note
Progress Note Update
Appreciate all consultants. Left elbow bursa grew MSSA. Currently 5 days of negative blood Cx. Afeb. PICC placed. 2 weeks of IV Ancef and then continued ABX based on clinical response. Will be following up outpatient the ID group. Ice and elevation.
Obviously nothing surgical planned at this time. Ortho to sign off.
[2024-04-17 09:53] LABS: Glucose - Point of Care 154 mg/dl (70-99)
--- NOTE | 2024-04-17 10:01 | W.PN.ID1 ---
Date of Service
Date of Service: April 17, 2024
Today's Communication
Continue abx.
Assessment / Plan
Severe right upper extremity cellulitis
Right olecranon bursitis 2* MSSA
MSSA Bacteremia (04/10 - 04/11)
Leukocytosis
- improved
Hx cardiac transplant
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
HTN
Dyslipidemia
DM
Sarcoidosis
Diverticulitis
Recommendations:
Continue cefazolin 2 g IV every 8 hours.
Repeat blood cultures negative x 4 days.
Would recommend cefazolin to continue through 12/01/2023, with need for additional antibiotic therapy thereafter determined by clinical response.
Place PICC line.
Continue with upper extremity elevation.
Monitor white count and temperature curve.
����������������������������������������������������������
Chief Complaint
-: Cellulitis and Bacteremia
Subjective / Review of Systems
Review of Systems: No Fever and No Chills
Vital Signs / Physical Exam
Vital Signs
Vital Signs
Temp Pulse Resp BP Pulse Ox
97.9 F 82 18 128/85 98
04/17/24 07:31 04/17/24 08:49 04/17/24 07:31 04/17/24 08:49 04/17/24 07:31
Physical Exam
Constitutional: No Acute Distress, Comfortable, Chronically Ill and Non-toxic
Eyes: No Conjunctival Hemorrhage and Sclera Anicteric
Cardiovascular: S1/S2; Negative S3/S4
Pulmonary: Clear; Negative Wheezes or Rales
Gastrointestinal: Soft and Non Tender
Extremities: Edema (Right upper extremity forearm area), Erythema (Right upper extremity forearm) and Pulses
Neurological: Awake and Alert
Psychological: Calm
Objective Data
Lab Data
Lab Results
04/17/24 05:07
04/17/24 05:07
Estimated Creat Clear 60 ml/min 04/17/24 05:07
Lactic Acid 1.1 mmol/L (0.7-2.0) 04/10/24 20:42
Total Bilirubin 0.8 mg/dl (0.2-1.3) 04/10/24 20:42
AST 33 U/L (17-59) 04/10/24 20:42
ALT 32 U/L (0-50) 04/10/24 20:42
Alkaline Phosphatase 135 U/L (38-126) H 04/10/24 20:42
Most recent labs reviewed.
Micro Results:
04/12/24 11:49 Blood Culture - Preliminary
Blood/Venous No Growth in 4 days- Final report to follow
04/12/24 11:20 Blood Culture - Preliminary
Blood/Venous No Growth in 4 days- Final report to follow
04/14/24 11:11 Blood Culture - Preliminary
Blood/Venous No Growth in 48 hours- Final report to follow
04/14/24 10:45 Blood Culture - Preliminary
Blood/Venous No Growth in 48 hours- Final report to follow
04/10/24 20:42 Blood Culture - Preliminary
Blood/Venous S aureus-Methicillin Sensitive
Gram Stain - Preliminary
04/10/24 20:42 Blood Culture - Preliminary
Blood/Venous S aureus-Methicillin Sensitive
Gram Stain - Preliminary
04/11/24 12:17 Wound Culture - Final
Bursa S aureus-Methicillin Sensitive
Gram Stain - Final
04/11/24 00:33 MRSA Screen - Final
Nose No Methicillin Resistant Staphylococcus aureus isolated.
Imaging:
04/12/2024 ECHO (TTE): EF approximately 55%. Mildly dilated left atrium. Mild tricuspid regurgitation. No intracardiac mass or thrombus formation seen. Please see full dictation for additional detail.
04/10/2024 Ultrasound right upper extremity: No sonographic evidence for right upper extremity venous thrombosis noted.
Care Review
Plan reviewed with: Physician (Hospitalist)
--- NOTE | 2024-04-17 10:21 | CM ---
Addendum entered by Halie Salinas RN 04/17/24 13:49:
[facility] accepting the patient. Message left for patient's son with regards to the discharge plan.
Plan: Discharge to [facility].
Approved for 6 day; NRD 04/22/24; Clinicals called to [phone]
Auth # [id number]
Ambulance Auth # [id number]
Call report to: [phone]
Fax report to: [phone]
Medical and necessity forms on chart.
Original Note:
Reviewed the chart notes and spoke with the patient at the bedside. Patient ready for discharge. TT to [facility] regarding possible placement. IMM signed and placed on chart. CM continues to be available to patient/family and is
monitoring medical plan for needs at discharge.
Plan: Discharge to SNF/rehab once bed found and precert obtained. Patient is listed as a [facility] patient.
[2024-04-17 12:53] LABS: Glucose - Point of Care 168 mg/dl (70-99)
[2024-04-17] MEDS: PROGRAF 0.5 MG PO (13:06)
--- NOTE | 2024-04-17 14:21 | W.DCSUMMARY ---
Discharge Summary
Discharge Data
Date of Admission: 04/10/24
Date of Discharge: 04/17/24
-
Pending Results: No
Hospital Course
Discharge diagnosis:
Methicillin sensitive Staph aureus bacteremia
Right olecranon bursitis
Right upper extremity cellulitis
Acute kidney injury
Acute on chronic heart failure with a preserved ejection fraction
History of heart transplant on chronic immunosuppression
Type 2 diabetes
Hypokalemia
Hypomagnesemia
Acute nonischemic myocardial injury
Hyperlipidemia
Gastroesophageal reflux disease
Consults: Orthopedic surgery, ID, cardiology
Hospital course:
73-year-old male with a past medical history of cardiac transplant on immunosuppression, CHF, hypertension, cardiomyopathy, and type 2 diabetes who was originally admitted for right upper extremity cellulitis. Patient had failed doxycycline and
Keflex outpatient. Patient was seen in conjunction with ID, and treated with vancomycin and Ancef.
Patient was also seen in conjunction with orthopedic surgery. He was found to have right olecranon bursitis. The bursa was aspirated, 6 cc of purulent fluid was removed. Cultures grew out MSSA. Blood cultures also grew out MSSA. He is continued
on IV Ancef.
Patient had acute kidney injury upon admission. This resolved with IV fluids.
Patient's hospital course was complicated by acute on chronic heart failure with a preserved ejection fraction. He was seen in conjunction with cardiology, and diuresed with IV Lasix. He became euvolemic, and does not need any more Lasix.
Patient has type 2 diabetes, and is only on metformin at home. His hemoglobin A1c is 8.1. He had hyperglycemia while in the hospital, and was started on Lantus 10 units at bedtime, NovoLog 6 units AC 3 times daily. He can continue his insulin at
the short-term rehab. When he goes home, he likely can be changed to a sulfonylurea.
Patient's bacteremia and right elbow bursitis was slow to improve. ID recommends discharge on Ancef through 04/30/2024. ID will call him with an appointment, to determine the need for more antibiotics based on his clinical response.
Patient's multiple medical conditions have been optimized. He is medically stable for discharge. He needs to follow-up with his primary care doctor 1 week after he leaves rehab, as well as ID in the office.
Disposition: Short-term rehab
Discharge planning: Required 40 minutes
Discharge Plan
-
Patient Disposition: Long Term/SNF
Discharge Diagnosis/Procedures: Methicillin sensitive Staph aureus bacteremia, right olecranon bursitis, right upper extremity cellulitis, acute kidney injury, labile hypertension, type 2 diabetes, chronic heart failure, history of heart transplant
on immunosuppression
Condition: Good
Diet: 2 Gram Sodium and Diabetic, Carb Controlled
Activity: As tolerated
Driving Restrictions: As prior to admission
Specialty Instructions: Weigh Daily- Call MD for wt gain/loss 3 lbs overnight/5 lbs in 1 week
Activity Restrictions/Additional Instructions:
Continue cefazolin 2 g IV every 8 hours through 04/30/2024.
Continue ice and elevation to the right elbow.
The infectious disease physician's office will call you for follow-up appointment, then will determine if you need more antibiotics.
Please follow-up with your primary care doctor 1 week after you leave rehab.
Referrals:
Natty Tobias [Other] - 06/17/24 7:30 am (You are scheduled for your annual heart transplant visit at [facility] on 06/17/24 starting with an echo at 7:30 AM, then a PET/stress test at 9 AM and then to see the provider at 10:30 AM.)
Alon Norman MD [Family Provider] - in one week
Prescriptions:
New
cefazolin 10 gram Recon Soln
2 g IV Q8H 14 Days Qty: 0 0RF
acetaminophen [Acetaminophen Extra Strength] 500 mg tablet
1,000 mg PO QID PRN (Reason: fever or pain) Qty: 60 0RF
tramadol 50 mg Tablet
50 mg PO Q4HPRN PRN (Reason: moderate pain) Qty: 3 0RF
Insulin Glargine Lantus [Lantus] 10 UNITS
Subcutaneous Insulin Syringe [Syringe-Insulin] 0 UNIT
As Directed mls/hr SC HS
Ordered By: Jasper Oneill MD
Last Taken: 04/15/24 21:52 0.1 mls
insulin aspart U-100 [Novolog FlexPen U-100 Insulin] 100 unit/mL (3 mL) insulin pen
6 unit SC .ACTID Qty: 15 0RF
Continued
atorvastatin 40 MG tablet
40 mg PO HS
tacrolimus 1 MG capsule
1 mg PO HS
Patient Comments:
04/10/2024, prescribed for pt. to take BID but pt. takes HS.
Rx Instructions:
04/10/2024, take with 0.5 mg for a total of 1.5 mg.
prednisone 5 MG tablet
5 mg PO DAILY
aspirin 81 MG tablet,delayed release (DR/EC)
81 mg PO DAILY
tamsulosin 0.4 MG capsule
0.4 mg PO HS
lisinopril 20 mg Tablet
20 mg PO DAILY
clopidogrel 75 mg Tablet
75 mg PO DAILY
lansoprazole 30 mg Capsule,Delayed Release(Dr/Ec)
30 mg PO DAILY
Multivitamin 50 Plus Tablet
1 tab PO DAILY
metformin 500 mg Tablet
500 mg PO BID
Patient Comments:
04/10/2024, pt. ran out roughly 2 days ago.
magnesium oxide 500 mg magnesium Tablet
500 mg PO HS
tacrolimus 0.5 mg Capsule
0.5 mg PO Q12H
Discontinued
amlodipine 10 mg Tablet
10 mg PO DAILY Qty: 30 0RF
Patient Comments:
04/10/2024, last filled on 05/10/2023 for 90-day supply.
doxycycline hyclate 100 mg Capsule
100 mg PO DAILY
Patient Comments:
04/10/2024, filled on 04/08/2024 and instructed to take one capsule Daily for 10 days.
ibuprofen 800 mg Tablet
800 mg PO BIDPRN PRN (Reason: mild pain)
cephalexin 500 mg capsule
500 mg PO Q6H
Patient Comments:
04/10/2024, filled on 04/08/2024 and instructed to take one capsule Q6H for 10 days.
oxycodone-acetaminophen [Percocet] 5-325 mg tablet
1 tab PO BID PRN (Reason: severe pain)
Discharge Orders:
Discharge Patient (As Directed); Ordered 04/17/24
Ordered By: Jasper Oneill
Discharge Date and Time
Discharge Date/Time: 04/17/24 17:04
Print Language: BHUTANESE
[2024-04-17 15:22] VITALS: BP 93/60
[2024-04-17 16:21] LABS: Glucose - Point of Care 235 mg/dl (70-99)
[2024-04-17] MEDS: NOVOLOG FLEXPEN SC (16:36)
[2024-04-17] MEDS: NOVOLOG FLEXPEN-LOW RESISTANCE SC (16:37)
== END 2024-04-17 17:04 | DRG 871 ==
LOC: 2 NORTH 22:14
PROVIDERS: Clinical Nurse Specialist Family Health; Hospitalist; Internal Medicine Interventional Cardiology; Physician Assistant Surgical; ADMITTING PHYSICIAN Internal Medicine; ATTENDING PHYSICIAN Family Medicine; CONSULT PHYSICIAN Orthopaedic Surgery; EMERGENCY PHYSICIAN Emergency Medicine; FAMILY PHYSICIAN Internal Medicine; OTHER PHYSICIAN Internal Medicine Cardiovascular Disease; OTHER PHYSICIAN Internal Medicine Infectious Disease
PROC: 0M933ZX Drainage of Right Elbow Bursa and Ligament, Percutaneous Approach, Diagnostic (ICD-10-PCS; 2024-04-11)
PROC: B24BZZZ Ultrasonography of Heart with Aorta (ICD-10-PCS; 2024-04-12)
PROC: 02HV33Z Insertion of Infusion Device into Superior Vena Cava, Percutaneous Approach (ICD-10-PCS; 2024-04-16)
DX: A41.01 Sepsis due to Methicillin susceptible Staphylococcus aureus (principal); I50.33 Acute on chronic diastolic (congestive) heart failure; L03.113 Cellulitis of right upper limb; I13.0 Hypertensive heart and chronic kidney disease with heart failure and stage 1 through stage 4 chronic kidney disease, or unspecified chronic kidney disease; I5A Non-ischemic myocardial injury (non-traumatic); N17.9 Acute kidney failure, unspecified; Z94.1 Heart transplant status; I42.9 Cardiomyopathy, unspecified; D84.821 Immunodeficiency due to drugs; M71.121 Other infective bursitis, right elbow; E11.22 Type 2 diabetes mellitus with diabetic chronic kidney disease; E11.51 Type 2 diabetes mellitus with diabetic peripheral angiopathy without gangrene; E11.65 Type 2 diabetes mellitus with hyperglycemia; E87.6 Hypokalemia; E83.42 Hypomagnesemia; E86.0 Dehydration; K21.9 Gastro-esophageal reflux disease without esophagitis; I70.213 Atherosclerosis of native arteries of extremities with intermittent claudication, bilateral legs; D86.89 Sarcoidosis of other sites; D86.0 Sarcoidosis of lung; N18.9 Chronic kidney disease, unspecified; T45.1X6A Underdosing of antineoplastic and immunosuppressive drugs, initial encounter; E78.00 Pure hypercholesterolemia, unspecified; S51.811A Laceration without foreign body of right forearm, initial encounter; F44.4 Conversion disorder with motor symptom or deficit; V00.811A Fall from moving wheelchair (powered), initial encounter; Z79.84 Long term (current) use of oral hypoglycemic drugs; Z87.891 Personal history of nicotine dependence; Z85.828 Personal history of other malignant neoplasm of skin; Z79.621 Long term (current) use of calcineurin inhibitor; Z79.82 Long term (current) use of aspirin; Z79.02 Long term (current) use of antithrombotics/antiplatelets; Z79.52 Long term (current) use of systemic steroids; Z91.128 Patient's intentional underdosing of medication regimen for other reason; Z91.199 Patient's noncompliance with other medical treatment and regimen due to unspecified reason
CPT/HCPCS: 93308; 71045; 71046; 73090; 80048; 80053; 80197; 81003; 82570; 82962; 83036; 83605; 83735; 83880; 84100; 84300; 84484; 85025; 85027; 87040; 87070; 87147; 87186; 87205; 89051; 89060; 93005; 93321; 93325; 93971; 96365; 96367; 97110; 97116; 97162; 97166; 97530; 97535; 99285

== ENCOUNTER → 2024-04-19 12:52 | Outpatient (REF) | payer OTHER, MEDICARE, SELFPAY ==
[2024-04-19 13:08] LABS: % Basophils 1.1 % (0-2); % Eosinophils 1.6 % (0-6); % Immature Granulocytes 1.8 % (0-0.5); % Lymphocytes 12.5 % (20.5-51.1); Absolute Basophils 0.1 10^3/uL (0-0.2); Absolute Eosinophils 0.2 10^3/uL (0-0.7); Absolute Immature Granulocytes 0.2 10^3/uL (0-0.05); Absolute Lymphocytes 1.3 10^3/uL (1.2-3.4); Absolute Neutrophils 7.5 10^3/uL (1.4-6.5); Hemoglobin 11.2 g/dL (13.0-18.0); Mean Corpuscular Hgb 29.8 pg (27.0-31.0); Mean Corpuscular Volume 93.1 fL (80.0-94.0); Nucleated Red Blood Cells % 0 % (-); Platelet Count 360 10^3/uL (130-400); Red Blood Cell Count 3.76 10^6/uL (4.70-6.10); Red Cell Dist. Width 14.2 % (11.5-14.5); White Blood Cell Count 10.2 10^3/uL (4.8-10.8)
[2024-04-19 13:21] LABS: Blood Urea Nitrogen 33 mg/dl (9-20); Calcium 8.8 mg/dl (8.4-10.2); Carbon Dioxide 26 mmol/L (22-30); Chloride 108 mmol/L (98-107); Glucose 86 mg/dl (70-99); Potassium 4.7 mmol/L (3.5-5.1); Sodium 140 mmol/L (135-145); eGFR > 60.00
== END ==
LOC: OLABP 12:52
PROVIDERS: ATTENDING PHYSICIAN Family Medicine
DX: A41.9 Sepsis, unspecified organism (principal); M71.10 Other infective bursitis, unspecified site; L03.90 Cellulitis, unspecified
CPT/HCPCS: 36415; 80048; 85025

== ENCOUNTER → 2024-04-23 09:56 | Outpatient (REF) | payer OTHER, MEDICARE, SELFPAY ==
[2024-04-23 11:01] LABS: % Basophils 1.7 % (0-2); % Immature Granulocytes 1.8 % (0-0.5); % Lymphocytes 17.1 % (20.5-51.1); % Monocytes 9.3 % (1.7-9.3); % Neutrophils 69.1 % (42.2-75.2); Absolute Basophils 0.2 10^3/uL (0-0.2); Absolute Eosinophils 0.1 10^3/uL (0-0.7); Absolute Immature Granulocytes 0.2 10^3/uL (0-0.05); Absolute Lymphocytes 1.5 10^3/uL (1.2-3.4); Absolute Monocytes 0.8 10^3/uL (0.1-0.6); Hematocrit 31.5 % (39.0-52.0); Hemoglobin 10.4 g/dL (13.0-18.0); Mean Corpuscular Hgb 29.6 pg (27.0-31.0); Mean Corpuscular Volume 89.7 fL (80.0-94.0); Mean Platelet Volume 9.5 fL (7.4-10.4); Nucleated Red Blood Cells % 0 % (-); Platelet Count 429 10^3/uL (130-400); Red Blood Cell Count 3.51 10^6/uL (4.70-6.10); Red Cell Dist. Width 14.3 % (11.5-14.5); White Blood Cell Count 8.7 10^3/uL (4.8-10.8)
[2024-04-23 11:08] LABS: ALT (SGPT) 13 U/L (0-50); AST (SGOT) 18 U/L (17-59); Albumin 2.8 g/dl (3.5-5.0); Alkaline Phosphatase 53 U/L (38-126); Blood Urea Nitrogen 28 mg/dl (9-20); Calcium 8.7 mg/dl (8.4-10.2); Carbon Dioxide 28 mmol/L (22-30); Chloride 107 mmol/L (98-107); Glucose 87 mg/dl (70-99); Potassium 4.2 mmol/L (3.5-5.1); Sodium 142 mmol/L (135-145); Total Bilirubin 0.4 mg/dl (0.2-1.3); Total Protein 5.3 g/dl (6.3-8.2); eGFR > 60.00
[2024-04-24 20:11] LABS: Tacrolimus (Prograft - FK506) 3.7 ng/mL
== END ==
LOC: OLABP 09:56
PROVIDERS: ATTENDING PHYSICIAN Family Medicine
DX: M71.121 Other infective bursitis, right elbow (principal); A41.9 Sepsis, unspecified organism; E11.8 Type 2 diabetes mellitus with unspecified complications; Z91.199 Patient's noncompliance with other medical treatment and regimen due to unspecified reason; I50.31 Acute diastolic (congestive) heart failure; D72.829 Elevated white blood cell count, unspecified; I10 Essential (primary) hypertension; E78.5 Hyperlipidemia, unspecified; G82.20 Paraplegia, unspecified; F44.4 Conversion disorder with motor symptom or deficit; E87.6 Hypokalemia; K21.9 Gastro-esophageal reflux disease without esophagitis; D86.9 Sarcoidosis, unspecified; L03.113 Cellulitis of right upper limb; D48.9 Neoplasm of uncertain behavior, unspecified
CPT/HCPCS: 36415; 80053; 80197; 85025; 86140

== ENCOUNTER 2024-05-03 18:36 | Observation (INO) | payer OTHER, SELFPAY ==
[2024-05-03] VITALS (9 sets, daily range): BP systolic 137–199; BP diastolic 76–105; BMI 22.6; BMI 20.2
[2024-05-03 11:50] LABS: % Basophils 0.8 % (0-2); % Eosinophils 0.2 % (0-6); % Immature Granulocytes 0.4 % (0-0.5); % Lymphocytes 9.1 % (20.5-51.1); % Monocytes 9.9 % (1.7-9.3); % Neutrophils 79.6 % (42.2-75.2); Absolute Basophils 0.1 10^3/uL (0-0.2); Absolute Immature Granulocytes 0.1 10^3/uL (0-0.05); Absolute Lymphocytes 1.1 10^3/uL (1.2-3.4); Absolute Monocytes 1.2 10^3/uL (0.1-0.6); Absolute Neutrophils 9.3 10^3/uL (1.4-6.5); Hematocrit 34.5 % (39.0-52.0); Hemoglobin 11.2 g/dL (13.0-18.0); Mean Corp Hgb Conc. 32.5 g/dL (33.0-37.0); Mean Corpuscular Hgb 29.1 pg (27.0-31.0); Mean Corpuscular Volume 89.6 fL (80.0-94.0); Mean Platelet Volume 9.9 fL (7.4-10.4); Nucleated Red Blood Cells % 0 % (-); Platelet Count 246 10^3/uL (130-400); Red Blood Cell Count 3.85 10^6/uL (4.70-6.10); Red Cell Dist. Width 14.2 % (11.5-14.5); White Blood Cell Count 11.7 10^3/uL (4.8-10.8)
--- NOTE | 2024-05-03 11:52 | ED.GENMED ---
History of Present Illness
<Momo Andrew PA-C - Last Filed: 05/04/24 09:04>
General
Chief Complaint: Change in Mental Status
Time Seen by Provider: 05/03/24 11:41
History of Present Illness
History of Present Illness:
73-year-old male with history of cardiomyopathy status post heart transplant, and insulin-dependent diabetes presents to the emergency department for evaluation of altered mental status. The patient was admitted to this hospital in March for
olecranon bursitis with bacteremia, was discharged from there to [facility]. Was reportedly discharged from [facility] to home 2 days ago. Visiting nurse came to the patient's house today and found him hanging out the side door of his
truck outside of his home. There was no family present. He apparently lives with the son but the patient is unaware of the son's whereabouts. Unclear baseline mentation, he believes that his winter 1994.
Past History
<Momo Andrew PA-C - Last Filed: 05/04/24 09:04>
Past History
ED Past Medical History: Cancer (Skin CA basal Cell), CHF, GERD, HTN, Hypercholesterolemia, IDDM and Other (Sarcoidosis, Cardiomyopathy, Diverticulitis, )
ED Past Surgical History: Cardiac (Heart transplant X 2) and Other (Cardiac transplant)
Social History
Tobacco: Former smoker
Alcohol: None
Drug: None
Personal: Single
Living: with family (Lives with son)
Review of Systems
<Momo Andrew PA-C - Last Filed: 05/04/24 09:04>
Review of Systems
Allergies reviewed?: Yes
All Other Systems: ROS reviewed and negative except as documented in HPI and ROS
Phy Exam
<Momo Andrew PA-C - Last Filed: 05/04/24 09:04>
Physical Exam
Physical Exam:
GEN: Disheveled, malnourished
Eyes: PERRLA, EOMs intact, no scleral icterus
HENT: NCAT, oral mucosa dry
Lungs: CTAB, no wheezes, rales, rhonchi, normal chest wall excursion
Cardiac: RRR, no M/R/G, no peripheral edema. Radial pulses 2+ bilat
Abdomen: S, NT, ND, NABS, no masses or hepatosplenomegaly
Neuro: Alert to place, disoriented to time and events, moves all extremities freely
MSK: No gross deformity or ecchymosis. No edema. No digital clubbing
Skin: Numerous areas of skin breakdown to the bilateral upper and lower extremities
Psych: Calm, cooperative, proper hygiene
Course
<Momo Andrew PA-C - Last Filed: 05/04/24 09:04>
Orders/Labs/Results
Orders:
Orders
05/03/24 11:42
Alcohol Urgent
CMP [Comprehensive Metabolic Panel] Urgent
Complete Blood Count/With Diff Urgent
Creatine Phosphokinase Urgent
Comment: CPK ADDED ON BY FLOOR 4:30PM 05-03-24
05/03/24 11:49
Add On- LAB Urgent
Tests Added?: alcohol level
CT Head W/o Iv Contrast Urgent
Comment:
Reason For Exam: confusion
05/03/24 13:09
Case Management Consult ONCE
Case Management Consult: VN/Home Care
PT Consult [Pt Eval And Treat] Urgent
Activity Level: As Tolerated
05/03/24 Dinner
2000 calorie (17 carb) Diabetic
At Your Request: Full Participation
Diabetic Diet: Cholesterol Lowering
05/03/24 15:09
Fentanyl, Urine Urgent
Urinalysis Reflex To Culture Urgent
Date Specimen was Collected: 05/03/24
Time Specimen was Collected: 12:10
Urine Drug Abuse Screen Urgent
Date Specimen was Collected: 05/03/24
Time Specimen was Collected: 12:10
Urine Microscopic Reflex Cult Urgent
05/03/24 16:27
Add On- LAB Urgent
Tests Added?: cpk
05/03/24 17:08
Add On- LAB Urgent
Tests Added?: urine drug screen
05/03/24 18:23
Admit/Transfer Patient As Directed
Co-Sign Provider:
Level of Care: Observation services
Assign to:: Telemetry
Physician / Group: nataliia
Diagnosis: metabolic encephelopathy methamphetamine
Reason for Telemetry: Arrhythmia
Date to Stop Telemetry: 05/06/24
Time to Stop Telemetry: 11:00
Code Status As Directed
Resuscitation Status: Full Code
05/03/24 18:25
HydrALAZINE [Apresoline] 5 mg IV Q6HPRN PRN
05/03/24 18:32
OT Consult [Ot Eval And Treat] Routine
Pt Eval And Treat Routine
Activity Level: As Tolerated
05/03/24 19:21
0.9% Sodium Chloride 1000 ml [Nss] 1,000 ml IV 80 mls/hr
Acetaminophen [Tylenol] 1,000 mg PO QIDPRN PRN
Dextrose 50%-Water [Dextrose 50% Syringe] 12.5 grams IV [id number] PRN
Glucagon [GlucaGen] 1 mg IM PRN PRN
Lorazepam [Ativan] 0.5 mg IV Q4HPRN PRN
Ondansetron Injectable [Zofran] 4 mg IV Q6HPRN PRN
05/03/24 19:21
Activity As Directed
Activity Level: As Tolerated
Bedside Glucose Monitoring As Directed
Frequency: AC&HS
Additional Instructions:: Change to q6h if pt on TPN, tube feeding or not eating
Vital Signs As Directed
Frequency: Per unit guidelines
DX Deep Vein Thrombosis Video Routine
05/03/24 20:00
Heparin 5,000 units SC Q12
05/03/24 20:42
Troponin I Urgent
05/03/24 22:00
Atorvastatin [Lipitor] 40 mg PO HS
Magnesium Oxide 500 mg PO HS
Tacrolimus [Prograf] 0.5 mg PO Q12H
Tacrolimus [Prograf] 1 mg PO HS
Tamsulosin [Flomax] 0.4 mg PO HS
05/04/24 06:00
Complete Blood Count/With Diff IN AM
Comprehensive Metabolic Panel IN AM
05/04/24 07:30
Insulin Aspart Corrective Low [Novolog Flexpen-Low Resistance] See Protocol SC AC
05/04/24 08:00
Aspirin Low Dose EC [Aspir Low (Enteric Coated)] 81 mg PO DAILY
Clopidogrel Bisulfate [Plavix] 75 mg PO DAILY
Lisinopril [Zestril] 20 mg PO DAILY
Multivitamin [Theragran] 1 tablet PO DAILY
Pantoprazole [Protonix] 40 mg PO DAILY
Prednisone [Deltasone] 5 mg PO DAILY
05/06/24 11:00
DC Protocol for Telemetry ONCE
Abnormal Lab Results
05/03/24 05/03/24
11:42 15:09
WBC 11.7 H 10^3/uL
(4.8-10.8)
RBC 3.85 L 10^6/uL
(4.70-6.10)
Hgb 11.2 L g/dL
(13.0-18.0)
Hct 34.5 L %
(39.0-52.0)
MCHC 32.5 L g/dL
(33.0-37.0)
Abs Immat Gran (auto) 0.1 H 10^3/uL
(0-0.05)
Absolute Neuts (auto) 9.3 H 10^3/uL
(1.4-6.5)
Absolute Lymphs (auto) 1.1 L 10^3/uL
(1.2-3.4)
Absolute Monos (auto) 1.2 H 10^3/uL
(0.1-0.6)
Neutrophils % 79.6 H %
(42.2-75.2)
Lymphocytes % 9.1 L %
(20.5-51.1)
Monocytes % 9.9 H %
(1.7-9.3)
BUN 31 H mg/dl
(9-20)
Glucose 161 H mg/dl
(70-99)
Creatine Kinase 185 H U/L
(55-170)
Total Protein 6.2 L g/dl
(6.3-8.2)
Urine Albumin (Reflex) 1+ A
(Neg - Trace)
Ur Amphetamines Screen Positive H
(Negative)
U Methamphetamines Scrn Positive H
(Negative)
05/03/24 11:42
05/03/24 11:42
Vital Signs
Initial and Last Documented VS:
Initial Vital Signs
Temp Pulse Resp BP Pulse Ox
99.1 F 95 13 184/96 97
05/03/24 11:29 05/03/24 11:29 05/03/24 11:29 05/03/24 11:29 05/03/24 11:29
Last Documented Vital Signs
Temp Pulse Resp BP Pulse Ox
98.3 F 76 18 146/73 97
05/04/24 08:00 05/04/24 08:00 05/04/24 08:00 05/04/24 08:00 05/04/24 08:00
<Aden Clayton MD - Last Filed: 05/03/24 18:36>
Orders/Labs/Results
Orders:
Orders
05/03/24 11:42
Alcohol Urgent
CMP [Comprehensive Metabolic Panel] Urgent
Complete Blood Count/With Diff Urgent
Creatine Phosphokinase Urgent
Comment: CPK ADDED ON BY FLOOR 4:30PM 05-03-24
05/03/24 11:49
Add On- LAB Urgent
Tests Added?: alcohol level
CT Head W/o Iv Contrast Urgent
Comment:
Reason For Exam: confusion
05/03/24 13:09
Case Management Consult ONCE
Case Management Consult: VN/Home Care
PT Consult [Pt Eval And Treat] Urgent
Activity Level: As Tolerated
05/03/24 Dinner
2000 calorie (17 carb) Diabetic
At Your Request: Full Participation
Diabetic Diet: Cholesterol Lowering
05/03/24 15:09
Fentanyl, Urine Urgent
Urinalysis Reflex To Culture Urgent
Date Specimen was Collected: 05/03/24
Time Specimen was Collected: 12:10
Urine Drug Abuse Screen Urgent
Date Specimen was Collected: 05/03/24
Time Specimen was Collected: 12:10
Urine Microscopic Reflex Cult Urgent
05/03/24 16:27
Add On- LAB Urgent
Tests Added?: cpk
05/03/24 17:08
Add On- LAB Urgent
Tests Added?: urine drug screen
05/03/24 18:23
Admit/Transfer Patient As Directed
Co-Sign Provider:
Level of Care: Observation services
Assign to:: Telemetry
Physician / Group: nataliia
Diagnosis: metabolic encephelopathy methamphetamine
Reason for Telemetry: Arrhythmia
Date to Stop Telemetry: 05/06/24
Time to Stop Telemetry: 11:00
Code Status As Directed
Resuscitation Status: Full Code
05/03/24 18:25
HydrALAZINE [Apresoline] 5 mg IV Q6HPRN PRN
05/03/24 18:32
OT Consult [Ot Eval And Treat] Routine
Pt Eval And Treat Routine
Activity Level: As Tolerated
05/03/24 19:21
0.9% Sodium Chloride 1000 ml [Nss] 1,000 ml IV 80 mls/hr
Acetaminophen [Tylenol] 1,000 mg PO QIDPRN PRN
Dextrose 50%-Water [Dextrose 50% Syringe] 12.5 grams IV [id number] PRN
Glucagon [GlucaGen] 1 mg IM PRN PRN
Lorazepam [Ativan] 0.5 mg IV Q4HPRN PRN
Ondansetron Injectable [Zofran] 4 mg IV Q6HPRN PRN
05/03/24 19:21
Activity As Directed
Activity Level: As Tolerated
Bedside Glucose Monitoring As Directed
Frequency: AC&HS
Additional Instructions:: Change to q6h if pt on TPN, tube feeding or not eating
Vital Signs As Directed
Frequency: Per unit guidelines
DX Deep Vein Thrombosis Video Routine
05/03/24 20:00
Heparin 5,000 units SC Q12
05/03/24 20:42
Troponin I Urgent
05/03/24 22:00
Atorvastatin [Lipitor] 40 mg PO HS
Magnesium Oxide 500 mg PO HS
Tacrolimus [Prograf] 0.5 mg PO Q12H
Tacrolimus [Prograf] 1 mg PO HS
Tamsulosin [Flomax] 0.4 mg PO HS
05/04/24 06:00
Complete Blood Count/With Diff IN AM
Comprehensive Metabolic Panel IN AM
05/04/24 07:30
Insulin Aspart Corrective Low [Novolog Flexpen-Low Resistance] See Protocol SC AC
05/04/24 08:00
Aspirin Low Dose EC [Aspir Low (Enteric Coated)] 81 mg PO DAILY
Clopidogrel Bisulfate [Plavix] 75 mg PO DAILY
Lisinopril [Zestril] 20 mg PO DAILY
Multivitamin [Theragran] 1 tablet PO DAILY
Pantoprazole [Protonix] 40 mg PO DAILY
Prednisone [Deltasone] 5 mg PO DAILY
05/06/24 11:00
DC Protocol for Telemetry ONCE
Abnormal Lab Results
05/03/24 05/03/24
11:42 15:09
WBC 11.7 H 10^3/uL
(4.8-10.8)
RBC 3.85 L 10^6/uL
(4.70-6.10)
Hgb 11.2 L g/dL
(13.0-18.0)
Hct 34.5 L %
(39.0-52.0)
MCHC 32.5 L g/dL
(33.0-37.0)
Abs Immat Gran (auto) 0.1 H 10^3/uL
(0-0.05)
Absolute Neuts (auto) 9.3 H 10^3/uL
(1.4-6.5)
Absolute Lymphs (auto) 1.1 L 10^3/uL
(1.2-3.4)
Absolute Monos (auto) 1.2 H 10^3/uL
(0.1-0.6)
Neutrophils % 79.6 H %
(42.2-75.2)
Lymphocytes % 9.1 L %
(20.5-51.1)
Monocytes % 9.9 H %
(1.7-9.3)
BUN 31 H mg/dl
(9-20)
Glucose 161 H mg/dl
(70-99)
Creatine Kinase 185 H U/L
(55-170)
Total Protein 6.2 L g/dl
(6.3-8.2)
Urine Albumin (Reflex) 1+ A
(Neg - Trace)
Ur Amphetamines Screen Positive H
(Negative)
U Methamphetamines Scrn Positive H
(Negative)
05/03/24 11:42
05/03/24 11:42
Vital Signs
Initial and Last Documented VS:
Initial Vital Signs
Temp Pulse Resp BP Pulse Ox
99.1 F 95 13 184/96 97
05/03/24 11:29 05/03/24 11:29 05/03/24 11:29 05/03/24 11:29 05/03/24 11:29
Last Documented Vital Signs
Temp Pulse Resp BP Pulse Ox
98.3 F 76 18 146/73 97
05/04/24 08:00 05/04/24 08:00 05/04/24 08:00 05/04/24 08:00 05/04/24 08:00
<Burak Hills PA-C - Last Filed: 05/03/24 17:35>
Orders/Labs/Results
Orders:
Orders
05/03/24 11:42
Alcohol Urgent
CMP [Comprehensive Metabolic Panel] Urgent
Complete Blood Count/With Diff Urgent
Creatine Phosphokinase Urgent
Comment: CPK ADDED ON BY FLOOR 4:30PM 05-03-24
05/03/24 11:49
Add On- LAB Urgent
Tests Added?: alcohol level
CT Head W/o Iv Contrast Urgent
Comment:
Reason For Exam: confusion
05/03/24 13:09
Case Management Consult ONCE
Case Management Consult: VN/Home Care
PT Consult [Pt Eval And Treat] Urgent
Activity Level: As Tolerated
05/03/24 Dinner
2000 calorie (17 carb) Diabetic
At Your Request: Full Participation
Diabetic Diet: Cholesterol Lowering
05/03/24 15:09
Fentanyl, Urine Urgent
Urinalysis Reflex To Culture Urgent
Date Specimen was Collected: 05/03/24
Time Specimen was Collected: 12:10
Urine Drug Abuse Screen Urgent
Date Specimen was Collected: 05/03/24
Time Specimen was Collected: 12:10
Urine Microscopic Reflex Cult Urgent
05/03/24 16:27
Add On- LAB Urgent
Tests Added?: cpk
05/03/24 17:08
Add On- LAB Urgent
Tests Added?: urine drug screen
05/03/24 18:23
Admit/Transfer Patient As Directed
Co-Sign Provider:
Level of Care: Observation services
Assign to:: Telemetry
Physician / Group: nataliia
Diagnosis: metabolic encephelopathy methamphetamine
Reason for Telemetry: Arrhythmia
Date to Stop Telemetry: 05/06/24
Time to Stop Telemetry: 11:00
Code Status As Directed
Resuscitation Status: Full Code
05/03/24 18:25
HydrALAZINE [Apresoline] 5 mg IV Q6HPRN PRN
05/03/24 18:32
OT Consult [Ot Eval And Treat] Routine
Pt Eval And Treat Routine
Activity Level: As Tolerated
05/03/24 19:21
0.9% Sodium Chloride 1000 ml [Nss] 1,000 ml IV 80 mls/hr
Acetaminophen [Tylenol] 1,000 mg PO QIDPRN PRN
Dextrose 50%-Water [Dextrose 50% Syringe] 12.5 grams IV [id number] PRN
Glucagon [GlucaGen] 1 mg IM PRN PRN
Lorazepam [Ativan] 0.5 mg IV Q4HPRN PRN
Ondansetron Injectable [Zofran] 4 mg IV Q6HPRN PRN
05/03/24 19:21
Activity As Directed
Activity Level: As Tolerated
Bedside Glucose Monitoring As Directed
Frequency: AC&HS
Additional Instructions:: Change to q6h if pt on TPN, tube feeding or not eating
Vital Signs As Directed
Frequency: Per unit guidelines
DX Deep Vein Thrombosis Video Routine
05/03/24 20:00
Heparin 5,000 units SC Q12
05/03/24 20:42
Troponin I Urgent
05/03/24 22:00
Atorvastatin [Lipitor] 40 mg PO HS
Magnesium Oxide 500 mg PO HS
Tacrolimus [Prograf] 0.5 mg PO Q12H
Tacrolimus [Prograf] 1 mg PO HS
Tamsulosin [Flomax] 0.4 mg PO HS
05/04/24 06:00
Complete Blood Count/With Diff IN AM
Comprehensive Metabolic Panel IN AM
05/04/24 07:30
Insulin Aspart Corrective Low [Novolog Flexpen-Low Resistance] See Protocol SC AC
05/04/24 08:00
Aspirin Low Dose EC [Aspir Low (Enteric Coated)] 81 mg PO DAILY
Clopidogrel Bisulfate [Plavix] 75 mg PO DAILY
Lisinopril [Zestril] 20 mg PO DAILY
Multivitamin [Theragran] 1 tablet PO DAILY
Pantoprazole [Protonix] 40 mg PO DAILY
Prednisone [Deltasone] 5 mg PO DAILY
05/06/24 11:00
DC Protocol for Telemetry ONCE
Abnormal Lab Results
05/03/24 05/03/24
11:42 15:09
WBC 11.7 H 10^3/uL
(4.8-10.8)
RBC 3.85 L 10^6/uL
(4.70-6.10)
Hgb 11.2 L g/dL
(13.0-18.0)
Hct 34.5 L %
(39.0-52.0)
MCHC 32.5 L g/dL
(33.0-37.0)
Abs Immat Gran (auto) 0.1 H 10^3/uL
(0-0.05)
Absolute Neuts (auto) 9.3 H 10^3/uL
(1.4-6.5)
Absolute Lymphs (auto) 1.1 L 10^3/uL
(1.2-3.4)
Absolute Monos (auto) 1.2 H 10^3/uL
(0.1-0.6)
Neutrophils % 79.6 H %
(42.2-75.2)
Lymphocytes % 9.1 L %
(20.5-51.1)
Monocytes % 9.9 H %
(1.7-9.3)
BUN 31 H mg/dl
(9-20)
Glucose 161 H mg/dl
(70-99)
Creatine Kinase 185 H U/L
(55-170)
Total Protein 6.2 L g/dl
(6.3-8.2)
Urine Albumin (Reflex) 1+ A
(Neg - Trace)
Ur Amphetamines Screen Positive H
(Negative)
U Methamphetamines Scrn Positive H
(Negative)
05/03/24 11:42
05/03/24 11:42
Vital Signs
Initial and Last Documented VS:
Initial Vital Signs
Temp Pulse Resp BP Pulse Ox
99.1 F 95 13 184/96 97
05/03/24 11:29 05/03/24 11:29 05/03/24 11:29 05/03/24 11:29 05/03/24 11:29
Last Documented Vital Signs
Temp Pulse Resp BP Pulse Ox
98.3 F 76 18 146/73 97
05/04/24 08:00 05/04/24 08:00 05/04/24 08:00 05/04/24 08:00 05/04/24 08:00
<Momo Andrew PA-C - Last Filed: 05/04/24 09:04>
MDM/Problems Addressed
MDM/Problems Addressed:
Medically the patient appears stable. Did order for urinalysis however he refused this both by straight cath and simple urine collection. Labs and head CT unremarkable. I was unable after several attempts to reach the patient's son with whom he
reportedly resides. I did reach out to his primary care physician's office who indicate that he is normally not confused to this degree. Unclear if patient is truly suitable for discharge from his rehab facility from 2 days ago given that physical
therapy evaluated the patient and he is quite unsteady on his feet. I did consult case management for assistance with placement, given these findings he is not a safe discharge to home particular given that we do not know the whereabouts of the son
with whom he reportedly resides. Pt is agreeable to placement at [facility]; again attempted to reach out to son unsuccessfully. Initially chart indicate a secondary contact however I contacted this individual and it was not valid and this
person had no affiliation with the patient. After speaking with the patient's primary care physician there was a integration lead by the name of Trista Nolen listed in the chart however this number was not answered and voicemail was full. Ultimately
the patient appears quite disheveled and not able to care for himself thus will be discharged to rehab when case management has facilitated this further
<Momo Andrew PA-C - Last Filed: 05/04/24 09:04>
*Critical Care Note
Total Time (30-74mins, 75-104mins- exclusive of procedures): Not Applicable
<[place]ak [place] PA-C - Last Filed: 05/03/24 17:35>
Update Note
Update Note:
Assumed care of patient pending case management evaluation. Initial thought was to potentially send patient to a custodial facility. Patient actually refused to go to nursing facility however we were able to finally get a hold of the
patient's son. We described as confusion and current mental status as far as the significant confusion. The son states this is new this is not typical for him. That being said, patient was found hanging outside of his truck by a visiting nurse
today. He was recently discharged from [facility] after being here for Staph aureus bacteremia. No fever here today. Patient has change in mental status and is not safe for discharge home. Admit to hospital for further evaluation
ED Attending Note
<Momo Andrew PA-C - Last Filed: 05/04/24 09:04>
-
Portions of this chart may have been created with voice recognition software.� Occasional wrong word or��sound alike� substitutions may have occurred due to the inherent limitations of voice recognition software.
<Aden Clayton MD - Last Filed: 05/03/24 18:36>
ED Attending Note
Patient seen and examined by attending physician: Yes
I performed the substantive portion of visit, reviewed & personally made and approve the management plan that is documented in note by myself or ANABELL.: Yes
ED Attending Note:
73-year-old male apparently found hanging out of his car door this morning. This is noted by the visiting nurse. Discharge from [facility] 2 days ago. We finally did get hold of the son who stated his mental status has not been quite the same since
he left [facility] and seems to be worsening. Patient without specific complaints.
On exam he is older than stated age. Alert to name alert to the president. Somewhat alert to the fact that he is in the hospital but off on the year. Neck is supple. He is nonfocal. He has an old sternotomy scar. No respiratory distress.
Minimal swelling to the right arm with mild erythematous changes.
This seems to be a gradual issue over days possibly longer. Clinically not meningitic. Labs are stable. However there clearly is a mental status change that was not there previously. Cannot go home and warrants further inpatient evaluation.
Discharge Plan
Departure
Patient Disposition: Admit
Date of Disposition: 05/03/24
Time of Disposition: 15:22
Admit to: Telemetry
Presentation/result/management discussed w/ accepting MD/DO: Hospitalist
Discharge Problem:
Adult failure to thrive, Ambulatory dysfunction, Acute confusion
Interventions
Interventions:
*Risk Screen - Suicide Last Done: 05/03/24 11:29
*General Assessment Last Done: 05/03/24 11:29
*Neglect/Abuse Screening Last Done: 05/03/24 11:29
ED- Fall Risk Assessment Last Done: 05/03/24 11:36
*ED COVID-19 Vaccine History Last Done: 05/03/24 11:29
*Nursing Disposition Last Done: 05/03/24 19:14
ED- Pulmonary Assessment Last Done: 05/03/24 11:36
ED-Psychological Assessment Last Done: 05/03/24 19:14
ED- Neurological Assessment Last Done: 05/03/24 11:36
ED- Cardiac Assessment Last Done: 05/03/24 11:36
ED Swallowing Screen Last Done: 05/03/24 11:36
Discharge Date and Time
Discharge Date/Time: 05/03/24 19:18
[2024-05-03 12:00] LABS: ALT (SGPT) < 10 U/L (0-50); AST (SGOT) 23 U/L (17-59); Albumin 3.8 g/dl (3.5-5.0); Alkaline Phosphatase 71 U/L (38-126); Blood Urea Nitrogen 31 mg/dl (9-20); Carbon Dioxide 25 mmol/L (22-30); Chloride 104 mmol/L (98-107); Estimated Creatinine Clearance 49 ml/min; Glucose 161 mg/dl (70-99); Potassium 3.7 mmol/L (3.5-5.1); Sodium 138 mmol/L (135-145); Total Bilirubin 1.2 mg/dl (0.2-1.3); Total Protein 6.2 g/dl (6.3-8.2); eGFR > 60.00
[2024-05-03 12:24] LABS: Alcohol None Detected
--- NOTE | 2024-05-03 13:41 | CM ---
Addendum entered by Sharon Kim 05/03/24 15:41:
Patient will be going to [facility]. REPORT: [phone] FAX: [phone]. Info given to bedside nurse.
Authorization Number: [id number]
Next review: 05/07. Call: [phone]
Patient has used 42/100 of his Medicare days.
All above relayed to shubham Munoz at [facility].
Addendum entered by Sharon Kim 05/03/24 15:17:
Correction: Catracho Kim.
Addendum entered by Sharon Kim 05/03/24 14:28:
SNF referrals sent to [facility], [facility] and [facility]. Await response.
Original Note:
CM reviewed chart. CM introduced self and role. Patient laying in bed. He stated he lives with his son and has HHC with [facility]. Was discharged from [facility] on the 01 of May. Call made out to admissions liaison and director inpatient headache program-
Catracho Bobo.
[2024-05-03 15:24] LABS: Urine Albumin 1+ (Neg - Trace); Urine Bilirubin Negative (Negative); Urine Character Clear (Clear); Urine Color Yellow; Urine Glucose Negative (Negative); Urine Ketone Negative (Negative); Urine Leukocyte Negative (Negative); Urine Nitrite Negative (Negative); Urine Occult Blood Negative (Negative); Urine Specific Gravity 1.015 (<1.030); Urine Urobilinogen 1+ (Neg - 1+)
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
[2024-05-03 15:54] LABS: Urine Hyaline Cast 0-2 /LPF (0-2); Urine Red Blood Cell 0-2 /HPF (0-2)
--- NOTE | 2024-05-03 16:10 | CM ---
Addendum entered by Myla Hoffmann RN 05/03/24 16:43:
CM left message for [phone] to contact son.
Addendum entered by Myla Hoffmann RN 05/03/24 16:30:
CM attempted to call patient's son. Voicemail is full and CM was unable to leave message.
Original Note:
CM updated patient with plan for discharge to [facility]. Patient is now refusing to be transferred. He is stating that he wants to return home and get his truck. He also stated that he has a doctor's appointment tomorrow that he has to make.
CM attempted to reassure patient that his medical needs to be provided for. Patient persisted in stating that he's in charge and does not now want to go to rehab. Patient further stated that he has a home to return to updated bedside RN and ED
PA.
CM updated CM director with discharge difficulties.
--- NOTE | 2024-05-03 16:59 | CM ---
Call to [facility], spoke to Tina , she stated they have had him on hold since before he went to [email or web address]. She did provide the phone number that they had for the Son, which is [phone]. Update to [facility].
[2024-05-03 17:06] LABS: Creatine Phosphokinase 185 U/L (55-170)
[2024-05-03 17:41] LABS: Amphetamines Positive (Negative); Barbiturates Negative (Negative); Benzodiazepines Negative (Negative); Buprenorphine Negative (Negative); Cocaine Negative (Negative); Marijuana Negative (Negative); Methadone Negative (Negative); Methamphetamines Positive (Negative); Opiates Negative (Negative); Phencyclidine Negative (Negative); Tricyclic Antidepressants Negative (Negative)
[2024-05-03 18:10] LABS: Fentanyl, Urine Negative (Negative)
--- NOTE | 2024-05-03 18:28 | HPS.HSE ---
Family Physician
-
Family Physician: NOT KNOW UNKNOWN - PT DOES
Chief Complaint
-
altered mental status
History of Present Illness
73-year-old male past medical history of MSSA bacteremia secondary to right olecranon bursitis, chronic HFpEF, cardiomyopathy status post heart transplant on immunosuppression, labile hypertension, GERD, hyperlipidemia, peripheral arterial disease,
type 2 diabetes, sarcoidosis, diverticulosis, functional paraplegia, spinal stenosis presenting with altered mental status.
Patient was recently admitted for MSSA bacteremia secondary to right leg and bursitis treated with antibiotics he was discharged to [facility]. He was discharged from [facility] to home 2 days ago. Visiting nurse came to see patient at his house today
and found him hanging out of the side door of his truck outside of his house. No family is present but son stated that patient has significant off of his baseline mental status.
Patient denies using any drugs. He denies alcohol or smoking. He states that he celebrated April at home with his dog. He is insistent that he wants to go home. He is complaining of some generalized body pains but denies any fevers or
chills, shortness of breath, nausea or vomiting. He denies fevers or chills. He states that the wounds on his lower extremity are improving.
Medical History
Past Medical History
Past Medical History: Reports Other (MSSA bacteremia secondary to right olecranon bursitis, chronic HFpEF, cardiomyopathy status post heart transplant on immunosuppression, labile hypertension, GERD, hyperlipidemia, peripheral arterial disease, type
2 diabetes, sarcoidosis, diverticulosis, functional paraplegia, spinal stenosis)
Past Surgical History: Reports Other (Cardiac (Heart transplant X 2) and Other (Cardiac transplant))
Social History
Tobacco: Non-smoker
Alcohol: None
Drug: None
Family History
Family History: Not pertinent
Allergies / Home Medications
Allergies reflects when Allergies were last updated in [facility].
Home Medications with original date entered in [facility]
Allergy/Medication List:
Allergies
Allergy/AdvReac Type Severity Reaction Status Date / Time
doxycycline Allergy Nausea / Verified 04/11/24 16:31
Vomiting
Home Medications
atorvastatin 40 mg tablet 40 mg PO HS High cholesterol 01/04/10
tacrolimus 1 mg capsule, immediate-release 1 mg PO HS Transplant 01/04/10
aspirin 81 mg tablet,delayed release 81 mg PO DAILY Heart disease/condition 03/03/22
prednisone 5 mg tablet 5 mg PO DAILY inflammation 03/03/22
tamsulosin 0.4 mg capsule 0.4 mg PO HS Urinary issue 03/03/22
clopidogrel 75 mg tablet 75 mg PO DAILY Blood Clot Prevention/Tx 01/10/24
lansoprazole 30 mg capsule,delayed release 30 mg PO DAILY Gastrointestinal Issue 01/10/24
lisinopril 20 mg tablet 20 mg PO DAILY Blood Pressure 01/10/24
qneligsevzdf-vknwugog-ymovwq tablet (Multivitamin 50 Plus tablet) 1 tab PO DAILY Supplement 01/10/24
magnesium oxide 500 mg PO HS 04/10/24
metformin 500 mg tablet 500 mg PO BID 04/10/24
tacrolimus 0.5 mg capsule, immediate-release 0.5 mg PO Q12H 04/10/24
Insulin Glargine Lantus [Lantus] 10 units As Directed mls/hr SC HS 04/17/24
acetaminophen 500 mg tablet (Acetaminophen Extra Strength) 1,000 mg (2 x 500 mg) PO QID PRN fever or pain #60 tabs 04/17/24
insulin aspart U-100 100 unit/mL (3 mL) subcutaneous pen (Novolog FlexPen U-100 Insulin aspart) 6 unit SC AC 05/03/24
oxycodone-acetaminophen 5 mg-325 mg tablet 1 tab PO BIDPRN PRN severe pain 05/03/24
Review of Systems
-
History Source: Patient
A 12 point ROS was completed and negative except as noted: Yes
Constitutional: Reports No Symptoms
EENT: Reports No Symptoms
Respiratory: Reports No Symptoms
Cardiac: Reports No Symptoms
Abdomen/GI: Reports No Symptoms
: Reports No Symptoms
Musculoskeletal: Reports No Symptoms
Skin: Reports No Symptoms
Neurological: Reports No Symptoms
Endocrine: Reports No Symptoms
Hematologic/Lymphatic: Reports No Symptoms
Psych: Reports No Symptoms
Physical Exam
Vital Signs
Vital Signs
Temp Pulse Resp BP Pulse Ox
99.1 F 92 15 185/90 97
05/03/24 11:29 05/03/24 17:00 05/03/24 17:00 05/03/24 15:00 05/03/24 15:30
Physical Exam
General: Well Developed, Well Nourished and No Apparent Distress
HEENT: NormoCephalic, Moist mucous membranes and Atraumatic
Respiratory: Clear
Cardiac: S1/S2 and Regular Rhythm; No Murmur or Rub
GI: Soft, Non Tender, Non Distended and Normal Bowel Sounds; No Organomegaly
Rectal: Deferred by Provider
Musculoskeletal: No Clubbing, No Cyanosis and No Edema
Skin: No Rash
Neuro: Nonfocal/grossly intact
Laboratory Results
-
05/03/24 11:42
05/03/24 11:42
Laboratory Results
Total Bilirubin 1.2 mg/dl (0.2-1.3) 05/03/24 11:42
AST 23 U/L (17-59) 05/03/24 11:42
ALT < 10 U/L (0-50) 05/03/24 11:42
Alkaline Phosphatase 71 U/L (38-126) 05/03/24 11:42
Data Reviewed
-
Lab Data: Labs Reviewed by me
Old Records: Reviewed
Impression/Plan
-
IMPRESSION:
PLAN:
# Metabolic encephalopathy likely secondary to amphetamine/methamphetamine intoxication
-Alert to self and president but not to date or year
-Patient very poor historian
-UDS positive for amphetamine/methamphetamines
-UDS unremarkable
-Alcohol level negative
-CT head shows no acute intracranial abnormality
-IV fluids
-As needed Ativan for agitation
-Patient does not have clear capacity to go home at this time and likely cannot care for himself at home
-Check troponin/EKG
-PT/OT
#Hypertensive urgency secondary to amphetamine/methamphetamine/possible medication noncompliance
-As needed hydralazine
# Mild lower extremity superficial wounds
-Appear to be healing
History of opioid use disorder
History of MSSA bacteremia secondary to right olecranon bursitis
History of cardiomyopathy status post heart transplant on immunosuppression
-Continue prednisone
-Continue tacrolimus
Chronic HFpEF
Essential hypertension with labile blood pressure
-Continue lisinopril
Peripheral arterial disease
-Continue aspirin, Plavix,
GERD
-Continue lansoprazole
Hyperlipidemia
-Continue statin
Type 2 diabetes
-Insulin sliding scale
-Hold metformin
Sarcoidosis
Diverticulosis
History of functional paraplegia
Spinal stenosis
Chronic anemia
-Hemoglobin at baseline
BPH
-Continue tamsulosin
Full code
DVT prophylaxis�heparin
Diabetic/cardiac diet
--- NOTE | 2024-05-03 19:21 | PTCARENOTE ---
Pt received from ED to [id number]. Pt oriented to room and call summers.
[2024-05-03] MEDS: HEPARIN 5000 UNITS SC (20:01)
[2024-05-03] MEDS: FLOMAX 0.4 MG PO (20:03)
[2024-05-03] MEDS: APRESOLINE 5 MG IV (20:03)
[2024-05-03] MEDS: MAGNESIUM OXIDE 500 MG PO (20:03)
[2024-05-03] MEDS: LIPITOR 40 MG PO (20:03)
[2024-05-03] MEDS: NSS 1000 IV (20:13)
[2024-05-03 21:12] LABS: Troponin I 0.016 ng/ml
[2024-05-03 21:29] LABS: Glucose - Point of Care 179 mg/dl (70-99)
[2024-05-03] MEDS: PROGRAF 0.5 MG PO (21:44)
[2024-05-03] MEDS: PROGRAF 1 MG PO (21:45)
[2024-05-04] VITALS (7 sets, daily range): BP systolic 116–175; BP diastolic 54–90; PULSE 84; BMI 20.6
--- NOTE | 2024-05-04 03:12 | VATNOTE ---
VAT paged to assess patient's right forearm iv as primary RN noticed that patient's right hand was swollen. PIV in proper placement, flushing with ease, no complaints of pain, no swelling at insertion site or around site however patient has swelling
in right hand. PIV removed and restarted in left forearm. US suggested by this VAT RN to r/o DVT. Primary RN notified, will continue to monitor.
[2024-05-04 07:24] LABS: Glucose - Point of Care 197 mg/dl (70-99)
[2024-05-04] MEDS: THERAGRAN 1 TABLET PO (07:52)
[2024-05-04] MEDS: HEPARIN 5000 UNITS SC ×2 (07:52→19:31)
[2024-05-04] MEDS: PLAVIX 75 MG PO (07:52)
[2024-05-04] MEDS: ZESTRIL 20 MG PO (07:52)
[2024-05-04] MEDS: PROTONIX 40 MG PO (07:52)
[2024-05-04] MEDS: ASPIR LOW (ENTERIC COATED) 81 MG PO (07:52)
[2024-05-04] MEDS: DELTASONE 5 MG PO (07:53)
[2024-05-04] MEDS: NOVOLOG FLEXPEN-LOW RESISTANCE 1 UNITS SC (07:53)
[2024-05-04] MEDS: NSS 1000 IV ×2 (09:28→21:57)
[2024-05-04] MEDS: PROGRAF 0.5 MG PO ×2 (09:31→21:58)
[2024-05-04 09:42] LABS: % Basophils 1.4 % (0-2); % Eosinophils 1.8 % (0-6); % Immature Granulocytes 0.5 % (0-0.5); % Monocytes 9.9 % (1.7-9.3); % Neutrophils 72.4 % (42.2-75.2); Absolute Basophils 0.1 10^3/uL (0-0.2); Absolute Eosinophils 0.1 10^3/uL (0-0.7); Absolute Lymphocytes 1.1 10^3/uL (1.2-3.4); Absolute Monocytes 0.8 10^3/uL (0.1-0.6); Absolute Neutrophils 5.7 10^3/uL (1.4-6.5); Hematocrit 33.9 % (39.0-52.0); Hemoglobin 11.3 g/dL (13.0-18.0); Mean Corp Hgb Conc. 33.3 g/dL (33.0-37.0); Mean Corpuscular Hgb 30.1 pg (27.0-31.0); Mean Corpuscular Volume 90.2 fL (80.0-94.0); Mean Platelet Volume 10.5 fL (7.4-10.4); Nucleated Red Blood Cells % 0 % (-); Platelet Count 242 10^3/uL (130-400); Red Blood Cell Count 3.76 10^6/uL (4.70-6.10); Red Cell Dist. Width 14.1 % (11.5-14.5); White Blood Cell Count 7.8 10^3/uL (4.8-10.8)
[2024-05-04 11:27] LABS: Glucose - Point of Care 230 mg/dl (70-99)
[2024-05-04 12:10] LABS: ALT (SGPT) < 10 U/L (0-50); AST (SGOT) 18 U/L (17-59); Albumin 2.7 g/dl (3.5-5.0); Alkaline Phosphatase 59 U/L (38-126); Blood Urea Nitrogen 22 mg/dl (9-20); Calcium 7.3 mg/dl (8.4-10.2); Carbon Dioxide 21 mmol/L (22-30); Chloride 111 mmol/L (98-107); Estimated Creatinine Clearance 71 ml/min; Glucose 210 mg/dl (70-99); Sodium 139 mmol/L (135-145); eGFR > 60.00
--- NOTE | 2024-05-04 12:10 | W.PN.HOSP.TC ---
Today's Communication/Plan
-
hand xray
follow up labs
cards consult
continue tac and pred
Assessment / Plan
Assessment / Plan
NAD, Comfortbale in bed
MMM, Scleral anciteric
CTA BL
RRR, normal s/s2
Soft, NT, ND
Right hand isolated nonpitting edema
AAOX2 (person, place) year he thought was 2029, knew the current and previous president
Encephalopathy in part likely related to intoxication. UDS positive for amphetamines and methamphetamines. He states he does not use this for
-Continue to monitor for signs of withdrawal
-Expect mental status to continue to improve
-Improving consider MRI EEG neurology consultation
Right hand swelling
-Check check hand x-ray
-COsnider soft tissue ultrasound if concerned for underlying infection
Mild lower extremity superficial wounds appear to be healing well
Heart transplant on immunosuppression
-Continue pred and tac
-Continue to follow tac trough level
-Consult cardiology
Anticipated Discharge: 24 - 48 hours
Subjective/Interval History
-
Date of Service: May 04, 2024
seen and examined.
no new compalints.
no acute overniggt events.
right hand swelling, noted, returned, went away when he went to [facility].
Objective Data
-
Labs:
Laboratory Results
05/04/24 05/04/24
08:25 10:40
WBC 7.8
Hgb 11.3 L
Hct 33.9 L
Plt Count 242
Sodium Cancelled Pending
Potassium Cancelled Pending
Chloride Cancelled Pending
Carbon Dioxide Cancelled Pending
BUN Cancelled Pending
Creatinine Cancelled Pending
Glucose Cancelled Pending
Calcium Cancelled Pending
Total Bilirubin Cancelled Pending
AST Cancelled Pending
ALT Cancelled Pending
Alkaline Phosphatase Cancelled Pending
Vital Signs:
Vital Signs
Temp Pulse Resp BP Pulse Ox
98.0 F 76 18 168/90 96
05/04/24 12:03 05/04/24 12:03 05/04/24 12:03 05/04/24 12:03 05/04/24 12:03
I&O
05/03/24 05/04/24 05/05/24
06:59 06:59 06:59
Intake Total 1090 / 1090
Output Total 450 / 450
Balance 640 / 640
[2024-05-04] MEDS: NOVOLOG FLEXPEN-LOW RESISTANCE 2 UNITS SC ×2 (12:23→17:06)
--- NOTE | 2024-05-04 16:31 | CON.CAR ---
Consultation
Consultation Request
Date/Time Consultation Requested: 05/04/2024 at 1400
Date/Time Consultation Performed: 05/04/2024 at 1600
Requesting Provider: Dr. Leighton Hahn
Performing Provider: Du Scott MD
Reason for Consultation: History of heart transplant
Medical History
-
Chief Complaint: Toxic metabolic encephalopathy
History of Present Illness:
Mr. Pantoja is a 73-year-old man with a history of heart transplant for what was hypothosized to be sarcoidosis in 2000 at the [facility], retransplanted when it was discovered that his first donor had a malignancy. He was
admitted in March 2024 with methicillin sensitive bacteremia related to his cellulitis and bursitis. He was discharged from [facility] 2 days ago, and visiting nurses arrived on the day of admission to find that he was in his truck, hanging out the
side door with a change in mentation. He lives with his son. He denies fevers or chills. Alcohol screen was negative. He does not smoke. He had methamphetamines in his tox screen. He now feels better. Tacrolimus levels were 3.7 when admitted
in March. He currently has no cardiac symptoms. Patient's transplant project management is Dr. Natty Clayton,
Past Medical History
Past Medical History: Other (Methicillin sensitive Staph aureus bacteremia March 2024, without evidence of endocarditis by echo, history of heart transplantation, chronic HFpEF, hypertension, GERD, hyperlipidemia, type 2 diabetes, peripheral arterial
disease, cardiac and pulmonary sarcoidosis, spinal stenosis with lower extremit)
Past Surgical History: Cardiac (Heart transplant times 11/2000 at the [facility])
Social History
Tobacco: Non-Smoker
Alcohol: None
Drug: None
Personal: Single (Son lives with him)
Living: With Family
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
Family History
Family History: Reviewed & Not Pertinent
Allergies / Home Medications
Allergy/AdvReac Type Severity Reaction Status Date / Time
doxycycline Allergy Nausea / Verified 04/11/24 16:31
Vomiting
�Medication �Instructions �Recorded �Confirmed �Type
atorvastatin 40 mg tablet 40 mg PO HS High cholesterol 01/04/10 05/03/24 History
tacrolimus 1 mg capsule, 1 mg PO HS Transplant 01/04/10 05/03/24 History
immediate-release
aspirin 81 mg tablet,delayed 81 mg PO DAILY Heart 03/03/22 05/03/24 History
release disease/condition
prednisone 5 mg tablet 5 mg PO DAILY inflammation 03/03/22 05/03/24 History
tamsulosin 0.4 mg capsule 0.4 mg PO HS Urinary issue 03/03/22 05/03/24 History
clopidogrel 75 mg tablet 75 mg PO DAILY Blood Clot 01/10/24 05/03/24 History
Prevention/Tx
lansoprazole 30 mg capsule,delayed 30 mg PO DAILY Gastrointestinal 01/10/24 05/03/24 History
release Issue
lisinopril 20 mg tablet 20 mg PO DAILY Blood Pressure 01/10/24 05/03/24 History
nwbrrjghsohz-jpavbcnf-ewhidv 1 tab PO DAILY Supplement 01/10/24 05/03/24 History
tablet (Multivitamin 50 Plus
tablet)
magnesium oxide 500 mg PO HS Supplement 04/10/24 05/03/24 History
metformin 500 mg tablet 500 mg PO BID Diabetes 04/10/24 05/03/24 History
tacrolimus 0.5 mg capsule, 0.5 mg PO Q12H Transplant 04/10/24 05/03/24 History
immediate-release
Insulin Glargine Lantus As Directed mls/hr SC HS 04/17/24 05/03/24 Rx
[Lantus] 10 units
acetaminophen 500 mg tablet 1,000 mg (2 x 500 mg) PO QID PRN 04/17/24 05/03/24 Rx
(Acetaminophen Extra Strength) fever or pain #60 tabs
insulin aspart U-100 100 unit/mL 6 unit SC AC Diabetes 05/03/24 05/03/24 History
(3 mL) subcutaneous pen (Novolog
FlexPen U-100 Insulin aspart)
oxycodone-acetaminophen 5 mg-325 1 tab PO BIDPRN PRN severe pain 05/03/24 05/03/24 History
mg tablet
Review of Systems
-
All other systems: Negative unless noted
Physical Exam
Vital Signs
Temp Pulse Resp BP Pulse Ox
36.6 C 86 18 123/67 98
05/04/24 15:43 05/04/24 15:43 05/04/24 15:43 05/04/24 15:43 05/04/24 15:43
Lab Results
05/04/24 08:25
05/04/24 10:40
Troponin I 0.016 ng/ml 05/03/24 20:42
Physical Exam
General: Well Developed and No Apparent Distress
HEENT: Normocephalic
Respiratory: Clear
Cardiac: Regular Rhythm and Murmur (No murmur, carotids okay)
GI: Soft, Non Distended and Normal Bowel Sounds
Musculoskeletal: No Edema (Except right upper extremity, which is nontender)
Skin: Warm and Dry
Neuro: AO x 3
Psych: Calm
Impression / Plan
-
Impression:
Metabolic encephalopathy, improved
Recent MSSA bacteremia with bursitis and lower extremity wounds
Heart transplantation December 2000 and January 2001 for sarcoidosis
HFpEF by hospital records
Pulmonary and cardiac sarcoidosis
Pulmonary hypertension
Hypertension
PAD
Hypercholesterolemia
Echocardiogram March 2024: Mild LVH, EF 55-60% mildly dilated left atrium, mild tricuspid regurgitation, pulmonary artery systolic pressure 52 mmHg
Plan:
Despite history of orthotopic heart transplant, Mr. Kaiser appears stable from a cardiac standpoint and it seems unlikely that his posttransplant status at contributed to his metabolic encephalopathy which seems to have largely cleared. The cause
of this is uncertain. It seems unlikely to relate to tacrolimus, as his last tacrolimus level was actually mildly subtherapeutic, and rare entities such as posterior reversible encephalopathy syndrome seem very unlikely although this has been
listed as an adverse effect of tacrolimus.
His recent echocardiogram was satisfactory. This does not need to be repeated.
.
I will repeat a tacrolimus level. I ordered an an ECG
I took the liberty of ordering an ultrasound of his right upper extremity venous system to exclude DVT
Supplement potassium, check magnesium
He should follow-up to the transplant center at the [facility].
From my standpoint okay to begin discharge planning.
Data Reviewed
-
EKG: Tracing Personally Visualized and interpreted (ECG pending)
Labs: Labs Reviewed by me (Hemoglobin 11.3, potassium is 3,BUN and creatinine 22 and 0.8, troponin is 0.016)
Old Records: Reviewed
[2024-05-04 16:48] LABS: Glucose - Point of Care 207 mg/dl (70-99)
--- NOTE | 2024-05-04 16:49 | CM ---
Patient admitted under observational status. PHILLIP letter provided and explained. The patient had no questions with regards to the letter.
The patient resides with his son in a one story home with one step to enter. The patient has a rolling walker and cane. The patient has had [facility] in past and been to [facility]. CM continues to be available to patient/family and is monitoring
medical plan for needs at discharge.
Plan: Discharge plans will depend on the patient's progress.
[2024-05-04] MEDS: KCL 40 MEQ PO (17:05)
[2024-05-04 19:04] LABS: Magnesium 1.4 mg/dl (1.6-2.3)
[2024-05-04] MEDS: FLOMAX 0.4 MG PO (19:32)
[2024-05-04] MEDS: MAGNESIUM OXIDE 500 MG PO (19:32)
[2024-05-04] MEDS: LIPITOR 40 MG PO (19:32)
[2024-05-04 21:13] LABS: Glucose - Point of Care 106 mg/dl (70-99)
[2024-05-04] MEDS: PROGRAF 1 MG PO (21:58)
--- NOTE | 2024-05-04 22:17 | W.PN.UPDATE ---
Update Note
Progress Note Update
2129 RN reports tacrolimus level is 1.3 (ref range per lab 5-20). Pt gets 0.5 mg daily am and 1.5mg daily pm
TT sent to cardiology Dr ALBERTA carey, he will reach out to transplant team in am for assistance with med adjustments
[2024-05-04] MEDS: MAGNESIUM SULFATE 50 IV (22:20)
--- NOTE | 2024-05-04 22:26 | PTCARENOTE ---
Lab called this RN w/ tacrolimus level of 1.3 with reference range being 5-20. House DOMINGO made aware. DOMINGO states she spoke with cardiology Dr Scott and that he would contact transplant team in the am about low levels.
[2024-05-05] VITALS (8 sets, daily range): BP systolic 118–200; BP diastolic 64–105; BMI 21.2
[2024-05-05 07:20] LABS: Glucose - Point of Care 146 mg/dl (70-99)
[2024-05-05] MEDS: NOVOLOG FLEXPEN-LOW RESISTANCE SC (08:12)
[2024-05-05] MEDS: PLAVIX 75 MG PO (08:13)
[2024-05-05] MEDS: ASPIR LOW (ENTERIC COATED) 81 MG PO (08:13)
[2024-05-05] MEDS: THERAGRAN 1 TABLET PO (08:13)
[2024-05-05] MEDS: ZESTRIL 20 MG PO (08:13)
[2024-05-05] MEDS: DELTASONE 5 MG PO (08:13)
[2024-05-05] MEDS: HEPARIN 5000 UNITS SC ×2 (08:13→21:29)
[2024-05-05] MEDS: PROTONIX 40 MG PO (08:13)
--- NOTE | 2024-05-05 08:48 | W.PN.CARDCBS ---
Today's Communication / Plan
-
From cardiac standpoint, okay for discharge
See below for recommendations
Potassium level is pending, patient will likely require discharge on potassium, with follow-up BMP and magnesium based on today's reading
With double magnesium oxide at discharge to 500 twice daily
Tacrolimus dose should be 1.5 mg twice daily
[facility] will arrange for cardiac follow-up
Impression / Plan
-
Impression:
Metabolic encephalopathy, improved
Recent MSSA bacteremia with bursitis and lower extremity wounds
Heart transplantation December 2000 and January 2001 for sarcoidosis
HFpEF by hospital records
Pulmonary and cardiac sarcoidosis
Pulmonary hypertension
Hypertension
PAD
Hypercholesterolemia
Hypomagnesemia and hypokalemia
Echocardiogram March 2024: Mild LVH, EF 55-60% mildly dilated left atrium, mild tricuspid regurgitation, pulmonary artery systolic pressure 52 mmHg
Plan:
From a cardiac standpoint, he is stable, mental status seems normal and cardiac status unlikely to account for his TME.
Ultrasound of right upper extremity is pending-defer to hospitalist for review
I have spoken with [facility] transplant service on-call. His tacrolimus level was low. They recommend tacrolimus 1.5 mg twice daily at discharge, and they will arrange for follow-up.
Potassium level is pending. Suspect patient will need potassium at discharge, defer to hospitalist as to dosage
Recommended cardiac medications at discharge:
Magnesium oxide 500 mg twice daily (double dose)
Tacrolimus 1.5 mg twice daily (higher dose)
Potassium, dose to be determined by hospitalist
Aspirin 81 mg a day
Atorvastatin 40 mg at bedtime
Clopidogrel 75 mg daily
Lisinopril 20 mg daily
Prednisone 5 mg daily
Please check BMP and magnesium level in 1 week
Follow-up to the [facility]-they will contact patient
Patient has been instructed not to drive until cleared by the [facility]
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
Subjective
Date of Service: May 05, 2024:
Patient offers no complaints. He swears that he was taking tacrolimus 1.5 mg twice daily, records while in rehab suggest he was taking 0.5 in a.m. and 1.5 in p.m. I spoke with the [facility] who said 1.5 twice daily was acceptable.
PMH/PSH/FH/SH: Reviewed
Allergies: Doxycycline
Outpatient cardiac meds: Aspirin 81 mg a day, atorvastatin 40 mg at bedtime, clopidogrel 75 mg a day, insulin, lisinopril 20 mg daily, mag oxide 500 mg at bedtime, metformin 500 mg twice daily, oxycodone, prednisone 5 mg a day, tacrolimus 0 point 5
AM, 1 point 5 PM, tamsulosin
Current medications: Subcu heparin, aspirin 81 mg a day, atorvastatin 40 mg at bedtime, clopidogrel 75 mg a day, Protonix, lisinopril 20 mg daily, magnesium oxide 500 mg at bedtime, multivitamins, prednisone 5, tacrolimus 0 point 5 AM, 1 point 5 PM,
tamsulosin 0.4
ROS negative except as above
141/80, pulse 70, respirate 18, afebrile, sats 98%, weight is 63.2 kg, no distress, head neck exam unremarkable, lungs are clear regular rate and rhythm, JVD okay, abdomen benign not much edema.
Weight is up 1.9 kg
Magnesium yesterday was 1.4, patient received magnesium, potassium was 3, repeat potassium pending
Tacrolimus level is 1.3.
Objective
Labs:
05/04/24 08:25
Labs
Hgb 11.3 g/dL (13.0-18.0) L 05/04/24 08:25
Hct 33.9 % (39.0-52.0) L 05/04/24 08:25
Plt Count 242 10^3/uL (130-400) 05/04/24 08:25
Sodium 139 mmol/L (135-145) 05/04/24 10:40
Potassium 3.0 mmol/L (3.5-5.1) L 05/04/24 10:40
BUN 22 mg/dl (9-20) H 05/04/24 10:40
Creatinine 0.8 mg/dL (0.7-1.3) 05/04/24 10:40
Glucose 210 mg/dl (70-99) H 05/04/24 10:40
Troponins
05/03/24
20:42
Troponin I 0.016
Vital Signs and I&O:
Vital Signs
Temp Pulse Resp BP Pulse Ox
36.6 C 70 18 141/80 98
05/05/24 07:20 05/05/24 08:13 05/05/24 07:20 05/05/24 08:13 05/05/24 07:20
Vital Signs
Temp Pulse Resp BP Pulse Ox
36.6 C 70 18 141/80 98
05/05/24 07:20 05/05/24 08:13 05/05/24 07:20 05/05/24 08:13 05/05/24 07:20
Intake & Output
05/03/24 05/04/24 05/05/24 05/06/24
07:59 07:59 07:59 07:59
Intake Total 1090 / 1090 1340 / 1340
Output Total 450 / 450 350 / 350
Balance 640 / 640 990 / 990
Physical Exam
Physical Exam
See above
[2024-05-05] MEDS: PROGRAF 0.5 MG PO ×2 (10:38→21:29)
[2024-05-05 11:42] LABS: Glucose - Point of Care 366 mg/dl (70-99)
--- NOTE | 2024-05-05 11:59 | W.PN.HOSP.TC ---
Today's Communication/Plan
-
Follow-up cardiology recommendations in terms of tacrolimus dose
Assessment / Plan
Assessment / Plan
NAD, Comfortbale in bed
MMM, Scleral anciteric
CTA BL
RRR, normal s/s2
Soft, NT, ND
Right hand isolated nonpitting edema
AAOX2 (person, place) year he thought was 2029, knew the current and previous president
Encephalopathy in part likely related to intoxication. UDS positive for amphetamines and methamphetamines. He states he does not use this for
Seems resolved
Right hand swelling
Right hand x-ray demonstrating no osteomyelitis nor soft tissue infection but demonstrating soft tissue swelling. DVT study of the upper extremity right from 04/22 did not demonstrate DVT. Cardiology has ordered another study of this.
Mild lower extremity superficial wounds appear to be healing well
Heart transplant on immunosuppression x 2
-Continue pred and tac
-Continue to follow tac trough level
- -Subtherapeutic
-Awaiting further cardiology recommendations on tacrolimus dosing.
Hypokalemia s/p repletion. Repeat BMP pending
Likely able to DC in the next 24 hours I would like to see improved tacrolimus levels on new dosing and will need very close follow-up with transplant cardiology/cardiology as outpatient
Anticipated Discharge: Within 24 hours
Subjective/Interval History
-
Date of Service: May 05, 2024
Seen and examined. No new complaints. No acute night events
Objective Data
-
Labs:
Laboratory Results
05/05/24
06:00
Sodium Pending
Potassium Pending
Chloride Pending
Carbon Dioxide Pending
BUN Pending
Creatinine Pending
Glucose Pending
Calcium Pending
Vital Signs:
Vital Signs
Temp Pulse Resp BP Pulse Ox
97.5 F 83 18 118/64 96
05/05/24 11:24 05/05/24 11:24 05/05/24 11:24 05/05/24 11:24 05/05/24 11:24
I&O
05/04/24 05/05/24 05/06/24
06:59 06:59 06:59
Intake Total 1090 / 1090 1340 / 1340
Output Total 450 / 450 350 / 350
Balance 640 / 640 990 / 990
[2024-05-05] MEDS: NOVOLOG FLEXPEN-LOW RESISTANCE 5 UNITS SC (12:37)
[2024-05-05 16:48] LABS: Glucose - Point of Care 151 mg/dl (70-99)
[2024-05-05] MEDS: NOVOLOG FLEXPEN-LOW RESISTANCE 1 UNITS SC (17:42)
[2024-05-05 20:49] LABS: Glucose - Point of Care 228 mg/dl (70-99)
[2024-05-05] MEDS: FLOMAX 0.4 MG PO (21:29)
[2024-05-05] MEDS: MAGNESIUM OXIDE 500 MG PO (21:29)
[2024-05-05] MEDS: PROGRAF 1 MG PO (21:29)
[2024-05-05] MEDS: LIPITOR 40 MG PO (21:29)
[2024-05-05] MEDS: APRESOLINE 5 MG IV (23:31)
[2024-05-06 03:08] VITALS: BP 151/76
[2024-05-06 06:00] VITALS: BMI 21.2
[2024-05-06 07:00] VITALS: BP 153/89
[2024-05-06 07:31] LABS: Glucose - Point of Care 160 mg/dl (70-99)
[2024-05-06] MEDS: ASPIR LOW (ENTERIC COATED) 81 MG PO (08:44)
[2024-05-06] MEDS: NOVOLOG FLEXPEN-LOW RESISTANCE 1 UNITS SC ×2 (08:44→12:19)
[2024-05-06] MEDS: HEPARIN 5000 UNITS SC (08:45)
[2024-05-06] MEDS: THERAGRAN 1 TABLET PO (08:45)
[2024-05-06] MEDS: MAGNESIUM OXIDE 500 MG PO (08:45)
[2024-05-06] MEDS: DELTASONE 5 MG PO (08:45)
[2024-05-06] MEDS: PROTONIX 40 MG PO (08:45)
[2024-05-06] MEDS: PLAVIX 75 MG PO (08:45)
[2024-05-06] MEDS: ZESTRIL 20 MG PO (08:46)
[2024-05-06] MEDS: PROGRAF 0.5 MG PO (09:06)
--- NOTE | 2024-05-06 09:34 | W.PN.HOSP.TC ---
Addendum entered and electronically signed by Madonna Feliz MD 05/06/24 13:32:
total DC time 36 min
Original Note:
Today's Communication/Plan
-
see A/P
Assessment / Plan
Assessment / Plan
A/P:
# Acute toxic encephalopathy likely related to intoxication.
UDS positive for amphetamines and methamphetamines.
encephalopathy has resolved
# Right hand swelling
Right hand XR no osteomyelitis nor soft tissue infection but demonstrated soft tissue swelling.
DVT study of the upper extremity right from 04/22 did not demonstrate DVT.
# Mild lower extremity superficial wounds appear to be healing well
# Heart transplant on immunosuppression x 2
Continue pred and tac
Tacrolimus dose should be 1.5 mg twice daily
Continue to follow tac trough level
[facility] will arrange for cardiac follow-up
# Hypokalemia
# hypomagnesemia
s/p repletion.
Follow BMP and Mag level outpt
Double magnesium oxide at discharge to 500 twice daily
Dispo: PT OT recc SNF, however pt declined SNF. Will discharge with HH
Anticipated Discharge: Today
Subjective/Interval History
-
Date of Service: May 06, 2024
Objective Data
-
Vital Signs:
Vital Signs
Temp Pulse Resp BP Pulse Ox
36.3 C 83 18 153/89 98
05/06/24 07:00 05/06/24 07:00 05/06/24 07:00 05/06/24 07:00 05/06/24 08:45
I&O
05/05/24 05/06/24 05/07/24
06:59 06:59 06:59
Intake Total 1340 / 1340 1140 / 1140
Output Total 350 / 350 2175 / 2175
Balance 990 / 990 -1035 / -1035
Review of Systems
-
All other systems: Reviewed and negative
Physical Exam
-
General: Well Developed, Comfortable and Conversant
HEENT: Normocephalic and Atraumatic
Respiratory: Clear to Auscultation and Non Labored Respirations; Negative Accessory Resp Muscle Use
Cardiac: Regular Rhythm and S1/S2; Negative Murmur
GI: Soft and Nontender
Musculoskeletal: No Edema
Neuro: Awake and Alert
Psych: Calm and Intact Judgement/Insight
Data Reviewed
-
Labs: Labs Reviewed by me
[2024-05-06 10:29] LABS: Blood Urea Nitrogen 20 mg/dl (9-20); Calcium 8.9 mg/dl (8.4-10.2); Carbon Dioxide 25 mmol/L (22-30); Chloride 106 mmol/L (98-107); Estimated Creatinine Clearance 65 ml/min; Glucose 199 mg/dl (70-99); Magnesium 1.5 mg/dl (1.6-2.3); Potassium 3.5 mmol/L (3.5-5.1); Sodium 139 mmol/L (135-145); eGFR > 60.00
[2024-05-06 11:00] VITALS: BP 96/59
[2024-05-06] MEDS: KCL 40 MEQ PO (11:18)
[2024-05-06] MEDS: MAGNESIUM SULFATE 50 IV (11:19)
[2024-05-06 11:34] LABS: Glucose - Point of Care 159 mg/dl (70-99)
--- NOTE | 2024-05-06 12:51 | CM ---
Patient seen bedside, discussed PT recommendation of SNF, patient not agreeable at this time. Patient agreeable to referral to [facility] as had services in the past, referral made in [facility]. 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
two people, SNF recommended to build patients strength, get patient back to baseline. Patient declining SNF, reports his son live in the home with him. CM offered to call son, patient declining at this time, reports he will ask CM if he needs her to
call son. Patient reports he has a walker and a scooter at home. [facility] Myla Finnegan in to see patient, reports they will be following patient, aware that SNF is recommendation, patient declining and agreeable to [facility] services. Patient
reports his friend will provide transportation home. CM will continue to follow for all discharge planning needs.
Plan; home with [facility], declining SNF.
--- NOTE | 2024-05-06 13:18 | W.DCSUMMARY ---
Discharge Summary
Discharge Data
Date of Admission: 05/03/24
Date of Discharge: 05/06/24
-
Pending Results: No
Hospital Course
Principal Diagnosis:
Acute toxic encephalopathy likely related to intoxication with amphetamines and methamphetamines.
Chronic Diagnoses:�
Heart transplant on immunosuppression on prednisone and tacrolimus
Consultations:�
Cardiology
Procedures:�
None
Clinical course:�
This is a 73-year-old male, with past medical history as stated above, who presented with confusion.
Problem 1:
Acute toxic encephalopathy likely related to intoxication with amphetamines and methamphetamines.
His UDS was positive for amphetamines and methamphetamines.
His encephalopathy resolved during his hospital stay.
Problem 2:
Heart transplant on immunosuppressants prednisone and tacrolimus.
His tacrolimus level was subtherapeutic, and per cardiology, the dose should be 1.5 mg twice daily.
He can follow-up with tacrolimus trough with cardiology outpatient.
Problem 3:
Right hand swelling.
His Right hand XR demonstrated soft tissue swelling, there is no underlying osteomyelitis or soft tissue infection.
Right upper extremity ultrasound was also negative for DVT.
As for the rest of his medical problems, they were stable during his hospital stay.
Discharge Plan
-
Patient Disposition: Home with Home Care
Condition: Fair
Diet: As tolerated
Activity: As tolerated
Driving Restrictions: As prior to admission
Blood Work: BMP and magnesium level in 1 week, result to PCP
Tacrolimus level with your life agent at [facility]
Referrals:
UNKNOWN - PT DOES,NOT KNOW [Family Provider] - in less than 1 week
Additional Discharge Medication Instructions: Your Tacrolimus dose should be 1.5 mg twice daily
Your magnesium oxide dose was increased to 500 twice daily
Prescriptions:
Continued
atorvastatin 40 MG tablet
40 mg PO HS
prednisone 5 MG tablet
5 mg PO DAILY
aspirin 81 MG tablet,delayed release (DR/EC)
81 mg PO DAILY
tamsulosin 0.4 MG capsule
0.4 mg PO HS
lisinopril 20 mg Tablet
20 mg PO DAILY
clopidogrel 75 mg Tablet
75 mg PO DAILY
lansoprazole 30 mg Capsule,Delayed Release(Dr/Ec)
30 mg PO DAILY
Multivitamin 50 Plus Tablet
1 tab PO DAILY
metformin 500 mg Tablet
500 mg PO BID
Patient Comments:
04/10/2024, pt. ran out roughly 2 days ago.
tacrolimus 0.5 mg Capsule
0.5 mg PO Q12H
acetaminophen [Acetaminophen Extra Strength] 500 mg tablet
1,000 mg PO QID PRN (Reason: fever or pain) Qty: 60 0RF
Insulin Glargine Lantus [Lantus] 10 UNITS
Subcutaneous Insulin Syringe [Syringe-Insulin] 0 UNIT
As Directed mls/hr SC HS
Ordered By: Jasper Oneill MD
Last Taken: Unknown
oxycodone-acetaminophen 5-325 mg tablet
1 tab PO BIDPRN PRN (Reason: severe pain)
Patient Comments:
05/03/2024: last filled 02/16/24, 10 tabs for 5 days from [id number]
insulin aspart U-100 [Novolog FlexPen U-100 Insulin] 100 unit/mL (3 mL) insulin pen
6 unit SC AC
Changed
magnesium oxide 500 mg magnesium Tablet
500 mg PO BID Qty: 60 0RF
tacrolimus 1 MG capsule
1 mg PO Q12H Qty: 60 0RF
Patient Comments:
04/10/2024, prescribed for pt. to take BID but pt. takes HS.
Rx Instructions:
04/10/2024, take with 0.5 mg for a total of 1.5 mg.
Discharge Orders:
Discharge Patient (As Directed); Ordered 05/06/24
Ordered By: Madonna Feliz
Discharge Date and Time
Print Language: CZECH
[2024-05-06 13:56] VITALS: BP 111/65; PULSE 80; O2SAT 99
[2024-05-06 13:57] VITALS: BP 111/65; PULSE 82; O2SAT 99
== END 2024-05-06 15:28 | disposition home health service (06) ==
LOC: 4 WEST ACU 18:36
PROVIDERS: Hospitalist; Physician Assistant; ADMITTING PHYSICIAN Hospitalist; ATTENDING PHYSICIAN Internal Medicine; CONSULT PHYSICIAN Internal Medicine Cardiovascular Disease; EMERGENCY PHYSICIAN Emergency Medicine
DX: G92.8 Other toxic encephalopathy (principal); M79.89 Other specified soft tissue disorders; F15.90 Other stimulant use, unspecified, uncomplicated; M11.241 Other chondrocalcinosis, right hand; D84.821 Immunodeficiency due to drugs; Z94.1 Heart transplant status; R62.7 Adult failure to thrive; E83.42 Hypomagnesemia; E87.6 Hypokalemia; I16.0 Hypertensive urgency; I11.0 Hypertensive heart disease with heart failure; I50.32 Chronic diastolic (congestive) heart failure; E11.51 Type 2 diabetes mellitus with diabetic peripheral angiopathy without gangrene; I73.9 Peripheral vascular disease, unspecified; R26.2 Difficulty in walking, not elsewhere classified; I42.9 Cardiomyopathy, unspecified; R09.89 Other specified symptoms and signs involving the circulatory and respiratory systems; M48.00 Spinal stenosis, site unspecified; E78.5 Hyperlipidemia, unspecified; E11.9 Type 2 diabetes mellitus without complications; K21.9 Gastro-esophageal reflux disease without esophagitis; D86.9 Sarcoidosis, unspecified; D64.9 Anemia, unspecified; N40.0 Benign prostatic hyperplasia without lower urinary tract symptoms; I27.20 Pulmonary hypertension, unspecified; E78.00 Pure hypercholesterolemia, unspecified; Z91.148 Patient's other noncompliance with medication regimen for other reason; Z79.4 Long term (current) use of insulin; Z87.891 Personal history of nicotine dependence; Z85.828 Personal history of other malignant neoplasm of skin; Z79.02 Long term (current) use of antithrombotics/antiplatelets; Z79.621 Long term (current) use of calcineurin inhibitor; Z79.82 Long term (current) use of aspirin; Z79.60 Long term (current) use of unspecified immunomodulators and immunosuppressants; Z88.1 Allergy status to other antibiotic agents; Z79.84 Long term (current) use of oral hypoglycemic drugs; Z79.52 Long term (current) use of systemic steroids
CPT/HCPCS: 70450; 73120; 80048; 80053; 80197; 80306; 80307; 81003; 81015; 82077; 82550; 82962; 83735; 84484; 85025; 93005; 93971; 97116; 97167; 97535; 99285; G0378

== ENCOUNTER 2024-09-05 13:00 | Emergency (ER) | payer OTHER, MEDICARE, SELFPAY ==
[2024-09-05 13:00] VITALS: BMI 22.0
[2024-09-05 13:03] VITALS: BP 177/93
--- NOTE | 2024-09-05 13:35 | ED.GENMED ---
History of Present Illness
<Tamie Silva PA-C - Last Filed: 09/05/24 18:50>
General
Chief Complaint: Skin Problem
Source: patient
Exam Limitations: none
Time Seen by Provider: 09/05/24 13:08
Nursing documentation reviewed up to this point in time: agreed with
History of Present Illness
History of Present Illness:
74-year-old male with past medical history of CHF, hyperlipidemia, hypertension, diabetes mellitus on insulin presents emergency department today with concerns of a wound of his right anterior lower extremity. Patient reports that he first noticed
this a few weeks ago but notes it has acutely worse in the past week. Patient notes that there is a small abrasion/ulceration with surrounding redness. Patient states it is painful to the touch. Patient is wheelchair-bound at baseline. Patient
states that his home nurse noted it and advised him to report to the emergency department for further evaluation. Patient states he never had would like this before. Of note, patient notes that he has been without his diabetic medical equipment
including his glucometer and his insulin because he was unable to get refills so he has not been treating his diabetes for the past month, however patient states that he has been feeling well, is not been feeling sick or lightheaded, has no
abdominal pain, and he has appointment scheduled with his primary tomorrow to get back on his diabetes regimen. Patient denies chest pain, shortness of breath, lower extremity swelling, fevers or chills, nausea or vomiting, diarrhea, constipation.
Past History
<Tamie Silva PA-C - Last Filed: 09/05/24 18:50>
Past History
ED Past Medical History: Cancer (Skin CA basal Cell), CHF, GERD, HTN, Hypercholesterolemia, IDDM and Other (Sarcoidosis, Cardiomyopathy, Diverticulitis, )
ED Past Surgical History: Cardiac (Heart transplant X 2) and Other (Cardiac transplant)
Social History
Tobacco: Former smoker
Alcohol: None
Drug: None
Personal: Single
Living: with family (Lives with son)
Review of Systems
<Tamie Silva PA-C - Last Filed: 09/05/24 18:50>
Review of Systems
All Other Systems: ROS reviewed and negative except as documented in HPI and ROS
Phy Exam
<Tamie Silva PA-C - Last Filed: 09/05/24 18:50>
Physical Exam
Physical Exam:
General: Patient is well appearing and in no acute distress; non-toxic
Skin: Small tender ulcerated lesion to the right anterior thigh with surrounding erythema, no active drainage
Head: Normocephalic, atraumatic
Eyes: Sclera non-icteric. EOMs intact. PERRLA.
Cardiac: Regular rate and rhythm, no murmurs
Peripheral Vascular: No lower extremity swelling or edema, 2+ dorsalis pedis pulses bilaterally
Pulm: Normal respiratory effort, no wheezes, rales, rhonchi
Neuro: CN II-XII intact, no focal neurologic deficits.
Psychiatric: Appropriate mood and affect.
Course
<Tamie Silva PA-C - Last Filed: 09/05/24 18:50>
Orders/Labs/Results
Orders:
Orders
09/05/24 14:29
Complete Blood Count/With Diff Urgent
Comprehensive Metabolic Panel Urgent
09/05/24 16:00
Cephalexin Monohydrate [Keflex] 500 mg PO NOW STA
09/05/24 16:09
Wound Culture [Wound/Abscess/Other Culture] Urgent
MALACHI Source: Ulcer
Specimen Description:
Date Specimen was Collected: 09/05/24
Time Specimen was Collected: 16:06
Abnormal Lab Results
09/05/24
14:29
RBC 3.99 L 10^6/uL
(4.70-6.10)
Hgb 11.8 L g/dL
(13.0-18.0)
Hct 33.4 L %
(39.0-52.0)
Absolute Monos (auto) 1.1 H 10^3/uL
(0.1-0.6)
Monocytes % 15.5 H %
(1.7-9.3)
BUN 31 H mg/dl
(9-20)
Glucose 142 H mg/dl
(70-99)
AST 14 L U/L
(17-59)
Total Protein 6.1 L g/dl
(6.3-8.2)
09/05/24 14:29
09/05/24 14:29
Vital Signs
Initial and Last Documented VS:
Initial Vital Signs
Temp Pulse Resp BP Pulse Ox
98.4 F 72 18 177/93 98
09/05/24 13:03 09/05/24 13:03 09/05/24 13:03 09/05/24 13:03 09/05/24 13:03
Last Documented Vital Signs
Temp Pulse Resp BP Pulse Ox
98.6 F 74 18 194/84 99
09/05/24 15:30 09/05/24 15:30 09/05/24 15:30 09/05/24 15:30 09/05/24 16:30
<Guillermo Villagran DO - Last Filed: 09/05/24 19:04>
Orders/Labs/Results
Orders:
Orders
09/05/24 14:29
Complete Blood Count/With Diff Urgent
Comprehensive Metabolic Panel Urgent
09/05/24 16:00
Cephalexin Monohydrate [Keflex] 500 mg PO NOW STA
09/05/24 16:09
Wound Culture [Wound/Abscess/Other Culture] Urgent
MALACHI Source: Ulcer
Specimen Description:
Date Specimen was Collected: 09/05/24
Time Specimen was Collected: 16:06
Abnormal Lab Results
09/05/24
14:29
RBC 3.99 L 10^6/uL
(4.70-6.10)
Hgb 11.8 L g/dL
(13.0-18.0)
Hct 33.4 L %
(39.0-52.0)
Absolute Monos (auto) 1.1 H 10^3/uL
(0.1-0.6)
Monocytes % 15.5 H %
(1.7-9.3)
BUN 31 H mg/dl
(9-20)
Glucose 142 H mg/dl
(70-99)
AST 14 L U/L
(17-59)
Total Protein 6.1 L g/dl
(6.3-8.2)
09/05/24 14:29
09/05/24 14:29
Vital Signs
Initial and Last Documented VS:
Initial Vital Signs
Temp Pulse Resp BP Pulse Ox
98.4 F 72 18 177/93 98
09/05/24 13:03 09/05/24 13:03 09/05/24 13:03 09/05/24 13:03 09/05/24 13:03
Last Documented Vital Signs
Temp Pulse Resp BP Pulse Ox
98.6 F 74 18 194/84 99
09/05/24 15:30 09/05/24 15:30 09/05/24 15:30 09/05/24 15:30 09/05/24 16:30
Harrisonlt;Tamie Silva PA-C - Last Filed: 09/05/24 18:50>
MDM/Problems Addressed
Differential Diagnosis Includes:
Differentials include diabetic ulcer, cellulitis, erysipelas, pressure wound
MDM/Problems Addressed:
74-year-old male presents emergency department today with concerns of redness to his right lower extremity, he has pain with this as well. There is no active drainage from the wound, patient has had no fevers or chills. He is nontoxic-appearing in
the ER. Patient lab work, he is evidence of leukocytosis, his kidney functions intact, and his blood sugar is not concerning the elevated. Considering that the lesion is small and there has not been a rapid spread of erythema, will trial patient
on a course of Keflex, based on EMRA recommendations. Attempted to obtain wound culture although no active drainage. Return precautions discussed.
Chronic conditions affecting care:
HLP, HTN, cardiomyopathy
<Tamie Silva PA-C - Last Filed: 09/05/24 18:50>
*Pulse Oximetry
Patient hypoxic: no
*Critical Care Note
Total Time (30-74mins, 75-104mins- exclusive of procedures): Not Applicable
Data Reviewed
Review of Other/Old Records Reveals: Records (Reviewed previous records from 04/10/2024, patient seen for cellulitis of the arm which rapidly progressed as well as CATIE)
Source: patient and records
Prescriptions/Medications Considered But Not Given:
n/a
<Tamie Silva PA-C - Last Filed: 09/05/24 18:50>
Patient Management
Escalation/DeEscalation of care consider admission/obs:
Admit not indicated, patient stable for discharge
Patient's blood pressure was elevated today, patient does take medications for his blood pressure, did discuss that this is important to watch and encouraged checking his blood pressure at home, considering patient has a follow-up with his primary
tomorrow, I do not feel that further workup is necessary at this time signs of endorgan damage.
ED Attending Note
<Tamie Silva PA-C - Last Filed: 09/05/24 18:50>
-
Portions of this chart may have been created with voice recognition software.� Occasional wrong word or��sound alike� substitutions may have occurred due to the inherent limitations of voice recognition software.
<Guillermo Phill Sparkle, DO - Last Filed: 09/05/24 19:04>
ED Attending Note
Patient seen and examined by attending physician: Yes
I performed the substantive portion of visit, reviewed & personally made and approve the management plan that is documented in note by myself or ANABELL.: Yes
I performed a history and physical exam of patient and discussed management with resident, I reviewed resident's note and agree with documented findings and plan of care.: Yes
ED Attending Note:
I evaluated the patient at bedside. There is a relatively small wound in the right mid tang with some surrounding cellulitic changes. White count is normal. Will start antibiotics.
Discharge Plan
Departure
Patient Disposition: Home (Routine Discharge)
Date of Disposition: 09/05/24
Time of Disposition: 15:37
Patient with high blood pressure during this ER visit?: Yes
Condition: Good
Discharge Problem:
Ulcer of lower extremity due to diabetes
Instructions: Cellulitis (Skin Infection), Adult (DC), BLOOD PRESSURE
Prescriptions:
New
cephalexin 500 mg capsule
500 mg PO QID 7 Days Qty: 28 0RF
No Action
atorvastatin 40 MG tablet
40 mg PO HS
prednisone 5 MG tablet
5 mg PO DAILY
aspirin 81 MG tablet,delayed release (DR/EC)
81 mg PO DAILY
tamsulosin 0.4 MG capsule
0.4 mg PO HS
lisinopril 20 mg Tablet
20 mg PO DAILY
clopidogrel 75 mg Tablet
75 mg PO DAILY
lansoprazole 30 mg Capsule,Delayed Release(Dr/Ec)
30 mg PO DAILY
Multivitamin 50 Plus Tablet
1 tab PO DAILY
metformin 500 mg Tablet
500 mg PO BID
Patient Comments:
04/10/2024, pt. ran out roughly 2 days ago.
tacrolimus 0.5 mg Capsule
0.5 mg PO Q12H
acetaminophen [Acetaminophen Extra Strength] 500 mg tablet
1,000 mg PO QID PRN (Reason: fever or pain) Qty: 60 0RF
Insulin Glargine Lantus [Lantus] 10 UNITS
Subcutaneous Insulin Syringe [Syringe-Insulin] 0 UNIT
As Directed mls/hr SC HS
Ordered By: Jasper Oneill MD
Last Taken: Unknown
oxycodone-acetaminophen 5-325 mg tablet
1 tab PO BIDPRN PRN (Reason: severe pain)
Patient Comments:
05/03/2024: last filled 02/16/24, 10 tabs for 5 days from [id number]
insulin aspart U-100 [Novolog FlexPen U-100 Insulin] 100 unit/mL (3 mL) insulin pen
6 unit SC AC
magnesium oxide 500 mg magnesium Tablet
500 mg PO BID Qty: 60 0RF
tacrolimus 1 MG capsule
1 mg PO Q12H Qty: 60 0RF
Patient Comments:
04/10/2024, prescribed for pt. to take BID but pt. takes HS.
Rx Instructions:
04/10/2024, take with 0.5 mg for a total of 1.5 mg.
Referrals:
Alon Norman MD [Family Provider] -
[facility] - Call in 1-3 days for appt
Activity Restrictions/Additional Instructions:
Keflex, an antibiotic, has been sent to your pharmacy. Please take 1 tablet 4 times daily for 7 days.
You will receive a call with the results of your wound culture.
Please follow-up with your primary care provider with tomorrow's scheduled appointment.
Please return to the emergency department should you experience chest pain, shortness of breath, confusion, difficulty speaking, lightheadedness, dizziness, nausea or vomiting, fevers or chills, or any other signs or symptoms concerning to you.
Interventions
Interventions:
*Risk Screen - Suicide Last Done: 09/05/24 13:03
*General Assessment Last Done: 09/05/24 13:03
*Neglect/Abuse Screening Last Done: 09/05/24 13:03
ED- Fall Risk Assessment Last Done: 09/05/24 16:30
*ED COVID-19 Vaccine History Last Done: 09/05/24 13:29
*Nursing Disposition Last Done: 09/05/24 16:30
ED-Skin Assessment Last Done: 09/05/24 13:31
Discharge Date and Time
Discharge Date/Time: 09/05/24 16:31
Print Language: POLISH
[2024-09-05 14:43] LABS: % Basophils 1.1 % (0-2); % Eosinophils 0.4 % (0-6); % Immature Granulocytes 0.4 % (0-0.5); % Lymphocytes 21.2 % (20.5-51.1); % Monocytes 15.5 % (1.7-9.3); % Neutrophils 61.4 % (42.2-75.2); Absolute Basophils 0.1 10^3/uL (0-0.2); Absolute Lymphocytes 1.5 10^3/uL (1.2-3.4); Absolute Monocytes 1.1 10^3/uL (0.1-0.6); Absolute Neutrophils 4.3 10^3/uL (1.4-6.5); Hematocrit 33.4 % (39.0-52.0); Hemoglobin 11.8 g/dL (13.0-18.0); Mean Corp Hgb Conc. 35.3 g/dL (33.0-37.0); Mean Corpuscular Hgb 29.6 pg (27.0-31.0); Mean Corpuscular Volume 83.7 fL (80.0-94.0); Mean Platelet Volume 9.2 fL (7.4-10.4); Nucleated Red Blood Cells % 0 % (-); Platelet Count 259 10^3/uL (130-400); Red Blood Cell Count 3.99 10^6/uL (4.70-6.10); Red Cell Dist. Width 13.3 % (11.5-14.5)
[2024-09-05 14:54] LABS: ALT (SGPT) 10 U/L (0-50); AST (SGOT) 14 U/L (17-59); Albumin 3.8 g/dl (3.5-5.0); Alkaline Phosphatase 65 U/L (38-126); Blood Urea Nitrogen 31 mg/dl (9-20); Calcium 9.3 mg/dl (8.4-10.2); Carbon Dioxide 28 mmol/L (22-30); Chloride 100 mmol/L (98-107); Estimated Creatinine Clearance 50 ml/min; Glucose 142 mg/dl (70-99); Potassium 3.7 mmol/L (3.5-5.1); Sodium 138 mmol/L (135-145); Total Protein 6.1 g/dl (6.3-8.2); eGFR > 60.00
[2024-09-05 15:30] VITALS: BP 194/84
[2024-09-05] MEDS: KEFLEX 500 MG PO (16:09)
== END 2024-09-05 16:31 | disposition home or self-care (01) ==
LOC: EMR 13:00
PROVIDERS: Physician Assistant; EMERGENCY PHYSICIAN Emergency Medicine; FAMILY PHYSICIAN Internal Medicine
DX: E11.622 Type 2 diabetes mellitus with other skin ulcer (principal); L97.111 Non-pressure chronic ulcer of right thigh limited to breakdown of skin; I11.0 Hypertensive heart disease with heart failure; I50.9 Heart failure, unspecified; Z79.4 Long term (current) use of insulin; K21.9 Gastro-esophageal reflux disease without esophagitis; E78.00 Pure hypercholesterolemia, unspecified; I42.9 Cardiomyopathy, unspecified; Z87.891 Personal history of nicotine dependence; Z85.828 Personal history of other malignant neoplasm of skin; Z99.3 Dependence on wheelchair
CPT/HCPCS: 99283; 80053; 85025; 87070; 87205

== ENCOUNTER 2024-09-09 12:20 | Emergency (ER) | payer OTHER, MEDICARE, SELFPAY ==
[2024-09-09 12:55] LABS: % Basophils 0.9 % (0-2); % Eosinophils 0.1 % (0-6); % Immature Granulocytes 0.2 % (0-0.5); % Lymphocytes 13.2 % (20.5-51.1); % Monocytes 11.6 % (1.7-9.3); Absolute Basophils 0.1 10^3/uL (0-0.2); Absolute Lymphocytes 1.2 10^3/uL (1.2-3.4); Absolute Monocytes 1.1 10^3/uL (0.1-0.6); Absolute Neutrophils 6.8 10^3/uL (1.4-6.5); Hematocrit 33.4 % (39.0-52.0); Hemoglobin 11.5 g/dL (13.0-18.0); Mean Corp Hgb Conc. 34.4 g/dL (33.0-37.0); Mean Corpuscular Hgb 29.4 pg (27.0-31.0); Mean Corpuscular Volume 85.4 fL (80.0-94.0); Mean Platelet Volume 9.2 fL (7.4-10.4); Nucleated Red Blood Cells % 0 % (-); Platelet Count 302 10^3/uL (130-400); Red Blood Cell Count 3.91 10^6/uL (4.70-6.10); White Blood Cell Count 9.2 10^3/uL (4.8-10.8)
[2024-09-09 13:29] LABS: ALT (SGPT) 10 U/L (0-50); AST (SGOT) 15 U/L (17-59); Albumin 3.5 g/dl (3.5-5.0); Alkaline Phosphatase 63 U/L (38-126); Blood Urea Nitrogen 40 mg/dl (9-20); Carbon Dioxide 22 mmol/L (22-30); Chloride 102 mmol/L (98-107); Glucose 227 mg/dl (70-99); Potassium 3.4 mmol/L (3.5-5.1); Sodium 139 mmol/L (135-145); Total Bilirubin 0.9 mg/dl (0.2-1.3); Total Protein 5.9 g/dl (6.3-8.2); eGFR 57.65
--- NOTE | 2024-09-09 13:59 | ED.GENMED ---
History of Present Illness
General
Chief Complaint: Weakness
Source: patient and ambulance crew
Exam Limitations: none
Time Seen by Provider: 09/09/24 13:48
Nursing documentation reviewed up to this point in time: agreed with
History of Present Illness
History of Present Illness:
74-year-old male presents emergency department complaining of leg swelling, fall yesterday with pain to his left knee. He denies hitting his head.
Past History
Past History
ED Past Medical History: Cancer (Skin CA basal Cell), CHF, GERD, HTN, Hypercholesterolemia, IDDM and Other (Sarcoidosis, Cardiomyopathy, Diverticulitis, )
ED Past Surgical History: Cardiac (Heart transplant X 2) and Other (Cardiac transplant)
Social History
Tobacco: Former smoker
Alcohol: None
Drug: None
Personal: Single
Living: with family (Lives with son)
Review of Systems
Review of Systems
Allergies reviewed?: Yes
All Other Systems: Not applicable
Constitutional: Reports no symptoms
EENT: Reports no symptoms
Respiratory: Reports no symptoms; Denies trouble breathing
Cardiac: Reports no symptoms; Denies chest pain
ABD/GI: Reports no symptoms
: Reports no symptoms
Musculoskeletal: Reports joint pain and edema
Skin: Reports no symptoms
Neurological: Reports no symptoms
Endocrine: Reports no symptoms
Hematologic/Lymphatic: Reports no symptoms
Psychiatric: Reports no symptoms
Phy Exam
Physical Exam
Physical Exam:
Physical Exam
General: no apparent distress, not acutely ill
Neck: supple. no meningeal signs. normal posterior pharynx
Heart: s1/s2 regular rate and rhythm, no murmur. equal radial
pulses.
HEENT: Pupils equal round reactive to light, EOMI
Lungs: no acute respiratory distress. clear bilaterally
Abdomen: normal bowel sounds. not tender. no CVAT
Neuro: alert and oriented. no focal neurological deficits cranial nerves II through XII intact
Skin: no rash, abrasion left knee
Psychiatric: well kept. interactive and cooperative
Extremities: Mild tibial edema. no calf tenderness. negative homans. good distal pulses
Course
Orders/Labs/Results
Orders:
Orders
09/09/24 12:41
CMP [Comprehensive Metabolic Panel] Urgent
Complete Blood Count/With Diff Urgent
09/09/24 13:58
Knee, Left 4 or More Views [CR Knee - Left 4 Or More View*] Urgent
Comment:
Reason For Exam: left knee pain, fall
US Legs, Bilateral [US Periph Venous LOWER Ext Brown] Urgent
Comment:
Reason For Exam: bilateral leg swelling
09/09/24 14:03
Case Management Consult ONCE
Case Management Consult: VN/Home Care
Abnormal Lab Results
09/09/24
12:41
RBC 3.91 L 10^6/uL
(4.70-6.10)
Hgb 11.5 L g/dL
(13.0-18.0)
Hct 33.4 L %
(39.0-52.0)
Absolute Neuts (auto) 6.8 H 10^3/uL
(1.4-6.5)
Absolute Monos (auto) 1.1 H 10^3/uL
(0.1-0.6)
Lymphocytes % 13.2 L %
(20.5-51.1)
Monocytes % 11.6 H %
(1.7-9.3)
Potassium 3.4 L mmol/L
(3.5-5.1)
BUN 40 H mg/dl
(9-20)
Glucose 227 H mg/dl
(70-99)
AST 15 L U/L
(17-59)
Total Protein 5.9 L g/dl
(6.3-8.2)
09/09/24 12:41
09/09/24 12:41
Vital Signs
Initial and Last Documented VS:
Initial Vital Signs
Pulse Resp Pulse Ox
85 18 98
09/09/24 12:24 09/09/24 12:24 09/09/24 12:24
Last Documented Vital Signs
Temp Pulse Resp BP Pulse Ox
98.4 F 68 18 175/77 100
09/09/24 15:16 09/09/24 15:16 09/09/24 15:16 09/09/24 15:16 09/09/24 15:16
MDM/Problems Addressed
Differential Diagnosis Includes:
DVT, knee fracture
MDM/Problems Addressed:
74-year-old male with chronic weakness and difficulty walking. Patient stopped his home care, and is in need of home care. No fractures seen.
*Radiology
Radiology exam reviewed: radiology read reviewed (Left knee x-ray no fracture, bilateral lower extremity ultrasound no DVT)
*Pulse Oximetry
Patient hypoxic: no
*Critical Care Note
Total Time (30-74mins, 75-104mins- exclusive of procedures): Not Applicable
Patient Management
Social determinants of health affecting care: Living situation
Discussion with other providers: Other (Case management)
Escalation/DeEscalation of care consider admission/obs:
admit not indicated
ED Attending Note
-
Portions of this chart may have been created with voice recognition software.� Occasional wrong word or��sound alike� substitutions may have occurred due to the inherent limitations of voice recognition software.
Discharge Plan
Departure
Patient Disposition: Home (Routine Discharge)
Date of Disposition: 09/09/24
Time of Disposition: 15:47
Patient with high blood pressure during this ER visit?: Yes
Condition: Good
Discharge Problem:
Fall, Contusion of knee, left, Bilateral edema of lower extremity
Instructions: Wound Care (DC), Preventing falls in adults, Generalized Weakness (DC), BLOOD PRESSURE
Prescriptions:
No Action
atorvastatin 40 MG tablet
40 mg PO HS
prednisone 5 MG tablet
5 mg PO DAILY
aspirin 81 MG tablet,delayed release (DR/EC)
81 mg PO DAILY
tamsulosin 0.4 MG capsule
0.4 mg PO HS
lisinopril 20 mg Tablet
20 mg PO DAILY
clopidogrel 75 mg Tablet
75 mg PO DAILY
lansoprazole 30 mg Capsule,Delayed Release(Dr/Ec)
30 mg PO DAILY
Multivitamin 50 Plus Tablet
1 tab PO DAILY
metformin 500 mg Tablet
500 mg PO BID
Patient Comments:
04/10/2024, pt. ran out roughly 2 days ago.
tacrolimus 0.5 mg Capsule
0.5 mg PO Q12H
acetaminophen [Acetaminophen Extra Strength] 500 mg tablet
1,000 mg PO QID PRN (Reason: fever or pain) Qty: 60 0RF
Insulin Glargine Lantus [Lantus] 10 UNITS
Subcutaneous Insulin Syringe [Syringe-Insulin] 0 UNIT
As Directed mls/hr SC HS
Ordered By: Jasper Oneill MD
Last Taken: Unknown
oxycodone-acetaminophen 5-325 mg tablet
1 tab PO BIDPRN PRN (Reason: severe pain)
Patient Comments:
05/03/2024: last filled 02/16/24, 10 tabs for 5 days from [id number]
insulin aspart U-100 [Novolog FlexPen U-100 Insulin] 100 unit/mL (3 mL) insulin pen
6 unit SC AC
magnesium oxide 500 mg magnesium Tablet
500 mg PO BID Qty: 60 0RF
tacrolimus 1 MG capsule
1 mg PO Q12H Qty: 60 0RF
Patient Comments:
04/10/2024, prescribed for pt. to take BID but pt. takes HS.
Rx Instructions:
04/10/2024, take with 0.5 mg for a total of 1.5 mg.
cephalexin 500 mg capsule
500 mg PO QID 7 Days Qty: 28 0RF
Activity Restrictions/Additional Instructions:
Follow up with primary care in 3-5 days.
Interventions
Interventions:
*Risk Screen - Suicide Last Done: 09/09/24 12:29
*General Assessment Last Done: 09/09/24 12:29
*Neglect/Abuse Screening Last Done: 09/09/24 12:29
*ED COVID-19 Vaccine History Last Done: 09/09/24 12:29
ED- Cardiac Assessment Last Done: 09/09/24 15:19
ED-Musculoskeletal Assessment Last Done: 09/09/24 15:19
ED- Neurological Assessment Last Done: 09/09/24 15:19
ED-Psychological Assessment Last Done: 09/09/24 15:19
ED- Pulmonary Assessment Last Done: 09/09/24 15:19
ED-Skin Assessment Last Done: 09/09/24 15:19
Discharge Date and Time
Print Language: FRISIAN
--- NOTE | 2024-09-09 15:09 | CM ---
Addendum entered by Myla Hoffmann RN 09/09/24 16:11:
Patient has been known to [facility]. CM emailed request for services to [facility].
Addendum entered by Myla Hoffmann RN 09/09/24 15:54:
CM met with patient in room. Patient confirmed that he only has a 'private duty' RN provide care. He currently does not have skilled care in the home. Patient reports that he has had home care in the past with [facility]. CM sent referral to [facility] for
VN, PT and SALVATIONIST.
Patient stated that he does have his medications at the [facility] and will request assistance from a friend to obtain his medications. He will further call his friend to assist with ride home.
CM updated Dr. Staley and bedside RN.
Original Note:
CM reviewed medical records. CM spoke with ED physician with concerns that patient is not taking his medication as prescribed. CM noted that patient was known to [facility]. CM will meet with patient to confirm services.
[2024-09-09 15:16] VITALS: BP 175/77
[2024-09-09 15:17] VITALS: BMI 21.8
[2024-09-09 16:00] VITALS: BP 166/83
[2024-09-09 16:43] VITALS: BP 159/98
== END 2024-09-09 16:58 | disposition home or self-care (01) ==
LOC: EMR 12:20
PROVIDERS: Emergency Medicine; EMERGENCY PHYSICIAN Emergency Medicine; FAMILY PHYSICIAN Internal Medicine
DX: S80.02XA Contusion of left knee, initial encounter (principal); W19.XXXA Unspecified fall, initial encounter; R60.0 Localized edema; Z87.891 Personal history of nicotine dependence; I11.0 Hypertensive heart disease with heart failure; I50.9 Heart failure, unspecified
CPT/HCPCS: 99285; 73564; 80053; 85025; 93970

== ENCOUNTER 2024-11-16 12:04 | Emergency (ER) | payer OTHER, SELFPAY ==
[2024-11-16 12:12] VITALS: BP 197/104
[2024-11-16 14:19] VITALS: BMI 19.7
--- NOTE | 2024-11-16 14:59 | ED.GENMED ---
History of Present Illness
General
Chief Complaint: Skin Problem
Source: patient
Exam Limitations: none
Time Seen by Provider: 11/16/24 14:17
Nursing documentation reviewed up to this point in time: agreed with
History of Present Illness
History of Present Illness:
PT IS A 74 Y/O M
h/o heart transplant x 2 in 2000
on antirejection meds
says he has noticed some white thickened stuff from his nails for a few weeks
his head insulation board saw operator told him to come today becuase it could be gangrene
pt says he saw his pcp a fwe weeks ago and he was not concerned
no redness, drainage, swelling, pain, numbness, pallor
Past History
Past History
ED Past Medical History: Cancer (Skin CA basal Cell), CHF, GERD, HTN, Hypercholesterolemia, IDDM and Other (Sarcoidosis, Cardiomyopathy, Diverticulitis, )
ED Past Surgical History: Cardiac (Heart transplant X 2) and Other (Cardiac transplant)
Social History
Tobacco: Former smoker
Alcohol: None
Drug: None
Personal: Single
Living: with family (Lives with son)
Review of Systems
Review of Systems
Allergies reviewed?: Yes
All Other Systems: Not applicable
Phy Exam
Physical Exam
Physical Exam:
GENERAL: Alert , in no apparent distress, comfortable at rest
HEAD: NCAT
CV: 2+ DP PULSES B/L
NEUROLOGICAL: Alert and oriented, no focal neuro deficits, , 5/5 strength, sensation intact, ambulation slight limp right leg
SKIN: Warm and dry,
perfused
no signs of gangrene;
no cracked skin, celluitis, swelling, tenderness
pt is very ticklish
MUSCULOSKELETAL: pt has onychomycosis of great toe nails and 2nd toes; the others seem without any thickening or yellowing
no drainage from undere the nail or in between toes
nontneder
ticklish
normal pusle
PSYCH: Normal and appropriate interaction.
Course
Orders/Labs/Results
Orders:
Orders
11/16/24 15:28
Lisinopril [Zestril] 20 mg PO NOW STA
11/16/24 16:45
CR Chest - 2 Views Urgent
Comment:
Reason For Exam: elev bp, heart transplant
11/16/24 16:50
HydrALAZINE [Apresoline] 10 mg IV NOW STA
11/16/24 17:07
Electrocardiogram (*1) Urgent
Reason for Study: Hypertension, Benign
EKG- Treatment ONCE
11/16/24 17:18
Comprehensive Metabolic Panel Urgent
NT-proBNP Urgent
Troponin I Urgent
11/16/24 18:36
Complete Blood Count/With Diff Urgent
Abnormal Lab Results
11/16/24 11/16/24
17:18 18:36
RBC 4.69 L 10^6/uL
(4.70-6.10)
RDW 14.9 H %
(11.5-14.5)
Lymphocytes % 19.8 L %
(20.5-51.1)
BUN 26 H mg/dl
(9-20)
Glucose 123 H mg/dl
(70-99)
11/16/24 18:36
11/16/24 17:18
Vital Signs
Initial and Last Documented VS:
Initial Vital Signs
Temp Pulse Resp BP Pulse Ox
36.6 C 88 16 197/104 99
11/16/24 12:12 11/16/24 12:12 11/16/24 12:12 11/16/24 12:12 11/16/24 12:12
Last Documented Vital Signs
Temp Pulse Resp BP Pulse Ox
36.6 C 88 20 159/96 97
11/16/24 12:12 11/16/24 19:30 11/16/24 19:30 11/16/24 19:30 11/16/24 19:30
MDM/Problems Addressed
Differential Diagnosis Includes:
toe nail fungus
MDM/Problems Addressed:
74 y/o M
heart transplant x 2
noncompliance previously documented
here with toe nail concerns, his head insulation board saw operator who does not seem to be medically trained but instead a family friend, said he may have gangrene
his nails appear to have some toe nail fungus but normal perfusion and no concerns for septic emboli or infection or circulation issues
his feet are a tad edematous
he has no cp, sob
but his bp is 190/100
he says he didn't take meds today other than his tacrolimus
upon reading his admission from 04/2024, pt tested pos for methamphetaminues and amphetamines but denies using them now
he had elevated bp readings then
d/w ed ttending
given his dose of lisinopril which didn't hlep bp
if not for his heart txp history, would discharge
but am working up with labs to check for end organ damage
pt may need outpatient f/u for this
hydralaine
*Critical Care Note
Total Time (30-74mins, 75-104mins- exclusive of procedures): Not Applicable
ED Attending Note
-
Portions of this chart may have been created with voice recognition software.� Occasional wrong word or��sound alike� substitutions may have occurred due to the inherent limitations of voice recognition software.
Discharge Plan
Departure
Patient Disposition: Home (Routine Discharge)
Date of Disposition: 11/16/24
Time of Disposition: 18:56
Patient with high blood pressure during this ER visit?: Yes
Condition: Good
Discharge Problem:
Onychomycosis, Essential (primary) hypertension
Instructions: Fungal nail infections, BLOOD PRESSURE
Prescriptions:
New
Kerasal Fungal Nail Renewal Solution
See Rx Instructions .ROUTE .COMPLEX Qty: 10 0RF
Rx Instructions:
apply topically to nail as directed for 10 days
No Action
atorvastatin 40 MG tablet
40 mg PO HS
prednisone 5 MG tablet
5 mg PO DAILY
aspirin 81 MG tablet,delayed release (DR/EC)
81 mg PO DAILY
tamsulosin 0.4 MG capsule
0.4 mg PO HS
lisinopril 20 mg Tablet
20 mg PO DAILY
clopidogrel 75 mg Tablet
75 mg PO DAILY
lansoprazole 30 mg Capsule,Delayed Release(Dr/Ec)
30 mg PO DAILY
Multivitamin 50 Plus Tablet
1 tab PO DAILY
metformin 500 mg Tablet
500 mg PO BID
Patient Comments:
04/10/2024, pt. ran out roughly 2 days ago.
tacrolimus 0.5 mg Capsule
0.5 mg PO Q12H
acetaminophen [Acetaminophen Extra Strength] 500 mg tablet
1,000 mg PO QID PRN (Reason: fever or pain) Qty: 60 0RF
Insulin Glargine Lantus [Lantus] 10 UNITS
Subcutaneous Insulin Syringe [Syringe-Insulin] 0 UNIT
As Directed mls/hr SC HS
Ordered By: Jasper Oneill MD
Last Taken: Unknown
oxycodone-acetaminophen 5-325 mg tablet
1 tab PO BIDPRN PRN (Reason: severe pain)
Patient Comments:
05/03/2024: last filled 02/16/24, 10 tabs for 5 days from [id number]
insulin aspart U-100 [Novolog FlexPen U-100 Insulin] 100 unit/mL (3 mL) insulin pen
6 unit SC AC
magnesium oxide 500 mg magnesium Tablet
500 mg PO BID Qty: 60 0RF
tacrolimus 1 MG capsule
1 mg PO Q12H Qty: 60 0RF
Patient Comments:
04/10/2024, prescribed for pt. to take BID but pt. takes HS.
Rx Instructions:
04/10/2024, take with 0.5 mg for a total of 1.5 mg.
cephalexin 500 mg capsule
500 mg PO QID 7 Days Qty: 28 0RF
Referrals:
Alon Norman MD [Family Provider] -
Activity Restrictions/Additional Instructions:
THE CHANGES TO YOUR NAILS IS LIKELY FROM A FUNGAL INFECTION
YOU CAN TRY THE TOPICAL MEDICATION FOR IT BUT YOU MAY NEED TO SEE YOUR FAMILY DOCTOR ABOUT OTHER OPTIONS
YOUR BLOOD PRESSURE WAS VERY ELEVATED
YOU NEED TO BE SURE YOU A RE TAKING YOUR MEDICATIONS
FOLLOW UP WITH YOUR DOCTOR
RETURN FOR: CHEST PAIN, SHORTNESS OF BREATH, WORSE LEG SWELLING, VISION CHANGES, HEADACHE
Interventions
Interventions:
*Risk Screen - Suicide Last Done: 11/16/24 12:12
*General Assessment Last Done: 11/16/24 12:12
*Neglect/Abuse Screening Last Done: 11/16/24 12:12
ED- Fall Risk Assessment Last Done: 11/16/24 19:30
*ED COVID-19 Vaccine History Last Done: 11/16/24 12:12
*Nursing Disposition Last Done: 11/16/24 19:30
ED-Skin Assessment Last Done: 11/16/24 19:30
Discharge Date and Time
Discharge Date/Time: 11/16/24 21:37
Print Language: SLOVAK
[2024-11-16 15:14] VITALS: BP 198/101
[2024-11-16] MEDS: ZESTRIL 20 MG PO (15:35)
[2024-11-16 16:31] VITALS: BP 194/99
[2024-11-16 17:32] VITALS: BP 195/104
[2024-11-16] MEDS: APRESOLINE 10 MG IV (17:33)
[2024-11-16 17:52] LABS: ALT (SGPT) 11 U/L (0-50); AST (SGOT) 19 U/L (17-59); Albumin 3.8 g/dl (3.5-5.0); Alkaline Phosphatase 65 U/L (38-126); Blood Urea Nitrogen 26 mg/dl (9-20); Calcium 9.3 mg/dl (8.4-10.2); Carbon Dioxide 24 mmol/L (22-30); Chloride 104 mmol/L (98-107); Estimated Creatinine Clearance 60 ml/min; Glucose 123 mg/dl (70-99); Potassium 4.2 mmol/L (3.5-5.1); Sodium 137 mmol/L (135-145); Total Bilirubin 0.7 mg/dl (0.2-1.3); Total Protein 6.3 g/dl (6.3-8.2); eGFR > 60.00
[2024-11-16 18:03] LABS: NT-proBNP 975 pg/ml; Troponin I 0.014 ng/ml
[2024-11-16 18:37] VITALS: BP 173/86
[2024-11-16 18:44] LABS: % Basophils 0.9 % (0-2); % Eosinophils 0.1 % (0-6); % Immature Granulocytes 0.3 % (0-0.5); % Lymphocytes 19.8 % (20.5-51.1); % Monocytes 5.6 % (1.7-9.3); % Neutrophils 73.3 % (42.2-75.2); Absolute Basophils 0.1 10^3/uL (0-0.2); Absolute Lymphocytes 1.5 10^3/uL (1.2-3.4); Absolute Monocytes 0.4 10^3/uL (0.1-0.6); Absolute Neutrophils 5.6 10^3/uL (1.4-6.5); Hematocrit 39.6 % (39.0-52.0); Hemoglobin 13.5 g/dL (13.0-18.0); Mean Corp Hgb Conc. 34.1 g/dL (33.0-37.0); Mean Corpuscular Hgb 28.8 pg (27.0-31.0); Mean Corpuscular Volume 84.4 fL (80.0-94.0); Mean Platelet Volume 9.4 fL (7.4-10.4); Nucleated Red Blood Cells % 0 % (-); Platelet Count 232 10^3/uL (130-400); Red Blood Cell Count 4.69 10^6/uL (4.70-6.10); Red Cell Dist. Width 14.9 % (11.5-14.5); White Blood Cell Count 7.7 10^3/uL (4.8-10.8)
[2024-11-16 19:30] VITALS: BP 159/96
== END 2024-11-16 21:37 | disposition home or self-care (01) ==
LOC: EMR 12:04
PROVIDERS: Physician Assistant; EMERGENCY PHYSICIAN Student in an Organized Health Care Education/Training Program; FAMILY PHYSICIAN Internal Medicine
DX: B35.1 Tinea unguium (principal); M79.89 Other specified soft tissue disorders; I11.0 Hypertensive heart disease with heart failure; I50.9 Heart failure, unspecified; E11.9 Type 2 diabetes mellitus without complications; E78.00 Pure hypercholesterolemia, unspecified; I42.9 Cardiomyopathy, unspecified; K57.92 Diverticulitis of intestine, part unspecified, without perforation or abscess without bleeding; K21.9 Gastro-esophageal reflux disease without esophagitis; D86.9 Sarcoidosis, unspecified; Z94.1 Heart transplant status; Z85.828 Personal history of other malignant neoplasm of skin; Z87.891 Personal history of nicotine dependence; Z79.4 Long term (current) use of insulin; Z79.82 Long term (current) use of aspirin; Z88.1 Allergy status to other antibiotic agents
CPT/HCPCS: 99284; 96374; 71046; 80053; 83880; 84484; 85025; 93005